=== PATIENT | female | born 1940 | race Caucasian/White ===

== ENCOUNTER 2018-06-21 17:04 | Inpatient (IN) ==
--- NOTE | 2018-06-21 18:25 | Emergency Department Note ---
Disposition Clinical Impression: Right leg pain DVT (deep venous thrombosis) Qualifiers: DVT location: lower extremity Affected thrombotic vein of extremity: iliac Chronicity: acute Laterality: right Qualified Code(s): I82.421 - Acute embolism and thrombosis of right iliac vein Disposition: Admitted As Inpatient General Adult HPI - General Chief complaint: ED Extremity Problem,Nontraumatic Stated complaint: Right leg swelling Time Seen by Provider: 06/21/18 17:18 Source: patient, family Mode of arrival: private vehicle Limitations: no limitations Nursing Notes Reviewed: Yes Vital Signs Reviewed: Yes - History of Present Illness HPI Narrative: Patient is a 78-year-old female with past medical history including 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 The patient states she woke up with righ t lower extremity swelling this morning. She states the swelling goes up into her thigh. She complains of thigh and calf pain. Pain worsens with ambulation. She denies sensory deficits or weakness. She denies fevers or chills, abrasions or ulcerations. She denies history of blood clots in the past. Patient ambulates with a walker. No recent travel, cancer, hormone therapy, recent surgery. Denies blood loss, hematuria, dysuria, hematochezia, melena, chest pain, shortness of breath, lightheadedness. Pain Scale: 8 - Related Data Home Medications Medication Instructions Recorded Confirmed Amlodipine Besylate 10 mg PO DAILY 04/06/17 04/18/18 Aspirin 04/06/17 Atorvastatin [Lipitor] 40 mg PO DAILY 04/06/17 04/18/18 Buspirone HCl [Buspar] 5 mg PO BID 04/06/17 04/18/18 Carbidopa/Levodopa ER 50/200 1 tab PO BID 04/06/17 04/18/18 [Sinemet ER 50-200 Tab] Prevacid 04/06/17 Sertraline [Zoloft] 150 mg PO DAILY 04/06/17 04/18/18 Bethanechol [Urecholine] 25 mg PO BID 04/18/18 04/18/18 Gabapentin [Neurontin] 300 mg PO BID 04/18/18 04/18/18 Previous Rx's Medication Instructions Recorded Bisacodyl [Dulcolax] 5 mg PO DAILY PRN tablet 04/21/18 Docusate [Colace] 100 mg PO BID capsule 04/21/18 Heparin 5,000 unit SQ Q12HCO vial 04/21/18 Sucralfate [Carafate] 1 gm PO QIDAC c 04/21/18 Allergies Allergy/AdvReac Type Severity Reaction Status Date / Time Sulfa (Sulfonamide Allergy Hives Verified 06/21/18 17:07 Antibiotics) All systems ED: reviewed and negative except as stated. Review of Systems: As Per HPI Constitutional: Denies: fever, chills ENT ED: Denies: ear pain, throat pain Cardiovascular: Denies: chest pain, palpitations Respiratory: Denies: cough, dyspnea Gastrointestinal: Denies: abdominal pain, nausea, vomiting, diarrhea, hematoch ezia Genitourinary: Denies: dysuria, hematuria Musculoskeletal: Reports: other (RLE swelling and pain). Denies: back pain Neurological: Denies: headache, weakness Past Medical History - Past Medical History Attestation: Yes The following information was validated with the patient. Source: patient Medical history: Reports: coronary artery disease, CVA, hyperlipidemia, hypertension Surgical history: Reports: no surgical history, cholecystectomy Psychiatric history: Reports: depression - Social History Smoking Status: Never smoker Smokeless Tobacco Status: No Alcohol use: Reports: none Drug use: Reports: none Physical Exam - General Limitations: no limitations General appearance: alert - Head Head exam: atraumatic, normocephalic, normal inspection - Eye Eye exam: Present: normal appearance, EOMI - ENT ENT exam: mucous membranes moist - Neck Neck exam: Present: normal inspection, trachea midline - Chest Chest inspection: Present: normal inspection, symmetric chest wall rise - Respiratory Respiratory exam: Present: normal lung sounds bilaterally. Absent: respiratory distress, wheezes - Cardiovascular Cardiovascular exam: Present: regular rate, normal rhythm, normal heart sounds - Abdominal Exam Abdominal exam: Present: soft, Non-Tender. Absent: distention - Extremities Exam Extremities exam: Present: other (significant RLE swelling from right foot into right thigh. normal capillary refill, bilateral dorsalis pedis pulses and posterior tibialis pulses palpable and equal. Color and temperature normal and equal. Positive right calf tenderness) - Neurological Exam Neurological exam: Present: alert, oriented X3 - Psychiatric Psychiatric exam: Present: normal affect, normal mood - Skin Skin exam: Present: warm, dry, intact, normal color Course Vital Signs Temperature 97.8 F 06/21/18 17:07 Pulse Rate 69 06/21/18 17:07 Respiratory Rate 18 06/21/18 17:07 Blood Pressure 88/61 06/21/18 17:07 O2 Sat by Pulse Oximetry 99 06/21/18 17:07 Temperature 97.8 F 06/21/18 17:28 Pulse Rate 69 06/21/18 17:28 Respiratory Rate 18 06/21/18 17:28 Blood Pressure 102/60 06/21/18 17:28 O2 Sat by Pulse Oximetry 100 06/21/18 17:28 Oxygen Delivery Oxygen Delivery Room Air Medical Decision Making - MDM Narrative Medical decision making narrative: Patient is presenting with significant right lower extremity swelling, calf tenderness. Symptoms started this morning. This is concerning for a DVT. We will obtain CBC, BMP, PT/INR, right lower extremity Doppler ultrasound. 19:30 Ultrasound results are positive for right lower extremity DVT extending into the distal iliac vein. We will obtain troponin, EKG, chest x-ray, BNP to evaluate for any ischemia and right heart strain given the extensive DVT. Patient remains chest pain-free and is oxygenating under percent on room air. She will require admission for evaluation of this new DVT as well as the extent of the DVT. 20:00 Troponin is normal. EKG shows no acute ischemic changes compared to prior ekg. CXR without acute cardiopulmonary process. Vitals stable. Patient denies CP, SOB, oxygenating on room air. Heparin for acute DVT will be started and Hospitalist paged for admission. patient may need further workup for the cause of the DVT as she has no risk factors for dvt. 21:40 Discussed with hospitalist, Dr. Viera, who accepts admission. - Medical Records Medical records reviewed: Yes I reviewed the patient's medical records. - Lab Data Lab results reviewed: Yes I reviewed the patient's lab results. Result diagrams: 06/21/18 18:31 06/21/18 18:31 Lab Results 06/21/18 06/21/18 06/21/18 Range/Units 18:31 18:31 18:31 WBC 10.8 (4.3-11.1) K/mcL RBC 3.62 L (3.82-4.97) M/mcL Hgb 10.5 L (11.5-15.4) g/dL Hct 32.5 L (35.3-44.9) % MCV 89.8 (83.0-100.0) fL MCH 29.0 (28.0-33.3) pg MCHC 32.3 (31.6-35.5) g/dL RDW 13.8 (11.5-14.5) % Plt Count 232 (140-400) K/mcL MPV 9.9 (9.4-12.4) fL Immature Gran % 0.8 (0-4) % Seg Neutrophils % 78.1 % Lymphocytes % 15.3 % Monocytes % 5.4 % Eosinophils % 0.2 % Basophils % 0.2 % Neutrophils # 8.4 (1.6-8.9) K/mcL Lymphocytes # 1.7 (0.6-4.6) K/mcL Monocytes # 0.6 (0.0-1.3) K/mcL Eosinophils # 0.0 (0.0-0.6) K/mcL Basophils # 0.0 (0.0-0.2) K/mcL PT 12.1 (9.4-12.1) Seconds INR 1.1 Heparin Anti-Xa, Unfract (0.30-0.70) IU/mL Sodium 139 (136-145) mEq/L Potassium 3.3 L (3.5-5.1) mEq/L Chloride 102 (98-107) mEq/L Carbon Dioxide 24 (23-29) mEq/L BUN 15 (8-23) mg/dL Creatinine 0.88 (0.60-1.20) mg/dL Est GFR ( Amer) > 60 (> 60) Est GFR (Non-Af Amer) > 60 (> 60) BUN/Creatinine Ratio 17 (6-26) Glucose 115 H (70-105) mg/dL Calculated Osmolality 290 (280-300) Calcium 8.9 (8.6-10.3) mg/dL Troponin I < 0.03 (< 0.04) ng/mL B-Natriuretic Peptide (Less than 100) pg/mL 06/21/18 06/21/18 Range/Units 19:36 20:59 WBC (4.3-11.1) K/mcL RBC (3.82-4.97) M/mcL Hgb (11.5-15.4) g/dL Hct (35.3-44.9) % MCV (83.0-100.0) fL MCH (28.0-33.3) pg MCHC (31.6-35.5) g/dL RDW (11.5-14.5) % Plt Count (140-400) K/mcL MPV (9.4-12.4) fL Immature Gran % (0-4) % Seg Neutrophils % % Lymphocytes % % Monocytes % % Eosinophils % % Basophils % % Neutrophils # (1.6-8.9) K/mcL Lymphocytes # (0.6-4.6) K/mcL Monocytes # (0.0-1.3) K/mcL Eosinophils # (0.0-0.6) K/mcL Basophils # (0.0-0.2) K/mcL PT (9.4-12.1) Seconds INR Heparin Anti-Xa, Unfract 0.00 L (0.30-0.70) IU/mL Sodium (136-145) mEq/L Potassium (3.5-5.1) mEq/L Chloride (98-107) mEq/L Carbon Dioxide (23-29) mEq/L BUN (8-23) mg/dL Creatinine (0.60-1.20) mg/dL Est GFR ( Amer) (> 60) Est GFR (Non-Af Amer) (> 60) BUN/Creatinine Ratio (6-26) Glucose (70-105) mg/dL Calculated Osmolality (280-300) Calcium (8.6-10.3) mg/dL Troponin I (< 0.04) ng/mL B-Natriuretic Peptide 129 H (Less than 100) pg/mL - Radiology Data Radiology results reviewed: Yes I reviewed the patient's radiology results. Chest X-Ray 06/21/18 19:36 IMPRESSION: No acute process. D/ / Eulogio Garner MD / Eulogio Garner MD Interpreting Provider: Eulogio Garner MD - EKG Data EKG #1 EKG attestation: Yes I reviewed and interpreted this EKG. EKG results narrative: EKG obtained at 2022 shows sinus rhythm with heart rate 63. SC interval 56, QRS duration 129. QTc 495. There is atrial premature complexes. There is an IVCD, consider atypical right bundle branch block. Patient has T-wave inversion s in V2, V3, V4, V5, V6, lead 2, lead 3, aVF. Compared to EKG from 04/16/2018 no acute changes Attestation Statement - Attestation Attestation: Resident Attestation: I examined this patient and my medical decision making was reviewed with the Resident Physician. I agree with the documented findings, disposition and treatment plan as described except to the extent set forth below. We independently had [id number] contact with the patient. Patient with no history of blood clots presenting to the emergency department after sudden onset of right leg swelling. Patient is accompanied by her nephew who helps take care of her. Patient's and nephew both state that they have not noticed this progressive over the last several days. Patient's leg is +2 pitting edema throughout the thigh and does have significant swelling. No swelling to the left leg. Patient does have DP pulse equal bilaterally. The patient will undergo further evaluation for possible DVT. Patient has not had any chest pain or shortness of breath.
[2018-06-21 18:41] LABS: Basophils % 0.2 %; Eosinophils % 0.2 %; Hematocrit 32.5 % (35.3-44.9); Hemoglobin 10.5 g/dL (11.5-15.4); Immature Granulocytes % 0.8 % (0-4); Lymphocytes # 1.7 K/mcL (0.6-4.6); Lymphocytes % 15.3 %; Mean Corpuscular HGB Conc 32.3 g/dL (31.6-35.5); Mean Corpuscular Volume 89.8 fL (83.0-100.0); Mean Platelet Volume 9.9 fL (9.4-12.4); Monocytes # 0.6 K/mcL (0.0-1.3); Monocytes % 5.4 %; Neutrophils # 8.4 K/mcL (1.6-8.9); Platelet Count 232 K/mcL (140-400); Red Blood Count 3.62 M/mcL (3.82-4.97); Red Cell Distribution Width 13.8 % (11.5-14.5); Segmented Neutrophils % 78.1 %
[2018-06-21 18:54] LABS: INR 1.1; Prothrombin Time 12.1 Seconds (9.4-12.1)
[2018-06-21 19:00] LABS: BUN/Creatinine Ratio 17 (6-26); Blood Urea Nitrogen 15 mg/dL (8-23); Calcium 8.9 mg/dL (8.6-10.3); Carbon Dioxide 24 mEq/L (23-29); Chloride 102 mEq/L (98-107); Glucose 115 mg/dL (70-105); Osmolality,Calculated 290 (280-300); Potassium 3.3 mEq/L (3.5-5.1); Sodium 139 mEq/L (136-145); eGFR For Non-African Americans > 60 (> 60)
[2018-06-21 20:05] LABS: Troponin I < 0.03 ng/mL (< 0.04)
[2018-06-21] MEDS ORDERED: *HR* Heparin 5,000 UNIT/ML VIAL IVP PRN ×2 (20:37)
[2018-06-21] MEDS ORDERED: *HR* Heparin 5,000 UNIT/ML VIAL IVP ONE (20:37)
[2018-06-21] MEDS ORDERED: Heparin 25,000 UNIT/250 ML D5W 25,000 UNIT/250 ML IV.SOLN IVC SCH (20:45)
[2018-06-22] MEDS ORDERED: Naloxone 0.4 MG/ML INJ IVP PRN (06:24)
--- NOTE | 2018-06-22 06:40 | Internal Med History&Physical ---
Date of Encounter: 06/22/18 Time of Encounter: 06:40 Internal Medicine - H&P: HPI Chief complaint: Right Leg swelling /Pain History of present illness: Ms. Hensley is a 78 year old female with a past medical history of hypertension, depression, stroke with residual dysarthria, and hyperlipidemia who presented to the ED with a chief complaint of right lower extremity pain and swelling which began yesterday morning. Workup in the ED including Ultrasound results were po sitive for right lower extremity DVT extending into the distal iliac vein. Patient has no prior history of blood clots, no recent travel, cancer history, hormone therapy or recent surgery. Patient was started on heparin drip. Otherwise hemodynamically stable, no respiratory complaints. Past Med Surg Social Fam HX - Past Medical History Medical history: coronary artery disease, CVA, hyperlipidemia, hypertension Additional medical history: Parkinson's Disease Psychiatric history: depression - Past Surgical History Surgical History: no surgical history, cholecystectomy Additional surgical history: Laparoscopic - Social History Smoking Status: Never smoker Smokeless Tobacco Status: No Alcohol use: none Drug use: none - Family History Mother Hx Family Cardiac Disorders: Yes Father Hx Family Cardiac Disorders: Yes Internal Medicine - H&P: Meds Amlodipine Besylate 10 mg PO DAILY 04/06/17 [History] Aspirin 04/06/17 [History] Atorvastatin [Lipitor] 40 mg PO DAILY 04/06/17 [History] Carbidopa/Levodopa ER 50/200 [Sinemet ER 50-200 Tab] 1 tab PO BID 04/06/17 [History] Sertraline [Zoloft] 150 mg PO HS 04/06/17 [History] Bethanechol [Urecholine] 25 mg PO BID 04/18/18 [History] Gabapentin [Neurontin] 300 mg PO BID 04/18/18 [History] Heparin 5,000 unit SQ Q12HCO vial 04/21/18 [Rx] Apixaban [Eliquis] 5 mg PO AD #70 tablet 06/22/18 [Rx] Aspirin [Lo-Dose Aspirin EC] 81 mg PO 06/22/18 [History] Sucralfate [Carafate] 1 gm PO DAILY 06/22/18 [History] Allergy/AdvReac Type Severity Reaction Status Date / Time Sulfa (Sulfonamide Allergy Hives Verified 06/21/18 17:07 Antibiotics) All Systems PM: A 10-system review of systems was performed and is negative for pertinent findings except as documented above in the HPI. - Constitutional Constitutional: no chills, no fever(s), no night sweats - EENT Eyes: no change in vision, no discharge, no pain, no photophobia Ears: no ear discharge, no ear pain, no tinnitus Nose, mouth and throat: no dysphagia, no nasal discharge, no neck pain, no sore throat - Cardiovascular Cardiovascular ROS IM: no chest pain, no diaphoresis, no dyspnea, no lightheadedness, no palpitations, no syncope - Respiratory Respiratory: no cough, no dyspnea, no wheezing, no excessive phlegm production - Gastrointestinal Gastrointestinal: no abdominal pain, no diarrhea, no hematemesis, no hematochezia, no melena, no nausea, no vomiting - Genitourinary Genitourinary: no change in urinary stream, no dysuria, no flank pain, no hematuria - Musculoskeletal Musculoskeletal ROS IM: no numbness, no tingling - Integumentary Integumentary IM: no rash, no unusual bruising - Neurological Neurological ROS: no confusion, no convulsions, no focal weakness, no numbness, no tingling, no tremor(s) - Hematologic/Lymphatic Hematologic/Lymphatic: no easy bruising - Constitutional Vitals: Temp Pulse Resp BP Pulse Ox 98.1 F 70 15 111/71 97 06/22/18 03:38 06/22/18 03:38 06/22/18 03:38 06/22/18 03:38 06/22/18 03:38 Exam: General: Alert and oriented 3 lying in bed in no acute distress Skin:Normal color, no rash, no lesions. HEENT:EOM, pupils equal, round and reactive. Cardiovascular:Normal S1 & S2, no rubs, murmurs or gallops. No JVD. Pulse regular. Lungs:Normal breath sounds, no wheezes or crackles. Abdomen:Soft, non-tender, no rigidity. Extremities: Right lower extremity edema, warmth and tender to palpation. 2+ pitting edema. Neurological:Normal cognition and motor skills. Pulses:Carotid and radial pulses normal +2. Rest of the physical exam is non contributory Internal Med - H&P Results - Labs CBC & Chem 7: 06/21/18 18:31 06/22/18 10:10 Labs: Short CBC 06/21/18 Range/Units 18:31 WBC 10.8 (4.3-11.1) K/mcL Hgb 10.5 L (11.5-15.4) g/dL Hct 32.5 L (35.3-44.9) % Plt Count 232 (140-400) K/mcL Neutrophils # 8.4 (1.6-8.9) K/mcL BMP 06/21/18 18:31 Sodium 139 Potassium 3.3 L Chloride 102 Carbon Dioxide 24 BUN 15 Creatinine 0.88 Glucose 115 H Calcium 8.9 Cardiac Enzymes 06/21/18 Range/Units 18:31 Troponin I < 0.03 (< 0.04) ng/mL - Impressions ITS Impressions Chest X-Ray 06/21/18 19:36 IMPRESSION: No acute process. D/ / Eulogio Garner MD / Eulogio Garner MD Interpreting Provider: Eulogio Garner MD - Assessment and Plan (1) DVT (deep venous thrombosis) Current Visit: Yes Status: Acute Assessment and plan: Right lower extremity DVT with Ultrasound of right lower extremity demonstrating DVT extending into the distal iliac vein.. Appears to be unprovoked. Patient currently on heparin drip. Stable from a respiratory and hemodynamic standpoint. Patient does report pain -Continue heparin drip -Pain control -Vascular versus oncology consult Qualifiers: DVT location: lower extremity Affected thrombotic vein of extremity: iliac Chronicity: acute Laterality: right Qualified Code(s): I82.421 - Acute embolism and thrombosis of right iliac vein (2) Right leg pain Current Visit: Yes Status: Acute Assessment and plan: Right leg pain secondary to right lower extremity DVT. See above. (3) Hypokalemia Current Visit: No Status: Resolved Assessment and plan: Mild hypokalemia of 3.3. We will replete. (4) Hypertension Current Visit: Yes Status: Acute Assessment and plan: Continue home antihypertensives Qualifiers: Hypertension type: essential hypertension Qualified Code(s): I10 - Essential (primary) hypertension (5) Parkinsons disease Current Visit: Yes Status: Acute Assessment and plan: Resume patient's home medications - Time Spent With Patient Total time spent is greater than 50% in coordination of care (as documented) at patient's floor/unit and/or counseling patient:
[2018-06-22] MEDS ORDERED: Potassium Chloride Elixir 20 MEQ/15 ML UDC PO ONE (08:05)
[2018-06-22] MEDS: traMADol 50 MG TABLET PO PRN (08:06)
[2018-06-22 10:50] LABS: BUN/Creatinine Ratio 21 (6-26); Blood Urea Nitrogen 16 mg/dL (8-23); Calcium 9.2 mg/dL (8.6-10.3); Carbon Dioxide 25 mEq/L (23-29); Chloride 103 mEq/L (98-107); Glucose 92 mg/dL (70-105); Osmolality,Calculated 289 (280-300); Potassium 3.6 mEq/L (3.5-5.1); Sodium 139 mEq/L (136-145); eGFR For Non-African Americans > 60 (> 60)
[2018-06-22] MEDS ORDERED: *HR* HYDROcodone/Acet 5/325 mg TABLET ONE (13:17)
[2018-06-22] MEDS: *HR* HYDROcodone/Acet 5/325 mg TABLET PO PRN (13:24)
--- NOTE | 2018-06-22 15:34 | Electrocardiograph Report ---
[place] [id number] Test Date: 2018-06-21 Pat Name: Kristan Hensley Department: [id number] Room: [facility] Gender: F Director Independent: : 1940 Requested By: Julissa Lau Order Number: [id number] Reading MD: Delroy Fischer Measurements Intervals [place] Rate: 63 P: 43 IN: 56 QRS: 36 QRSD: 129 T: -36 QT: 483 QTc: 495 Interpretive Statements Sinus rhythm Atrial premature complexes Short IN interval IVCD, consider atypical RBBB Electronically Signed On 06-22-2018 15:32:35 EDT by Delroy Fischer
--- NOTE | 2018-06-22 16:20 | Internal Med Progress Note ---
<Chapin Barbosa - Last Filed: 06/22/18 16:51> Hospitalist Progress Note - Encounter Date of Encounter: 06/22/18 - Exam Vitals: Temp Pulse Resp BP Pulse Ox 98.7 F 71 16 112/71 97 06/22/18 13:15 06/22/18 13:15 06/22/18 13:15 06/22/18 13:15 06/22/18 13:15 - Assessment and Plan (1) DVT (deep venous thrombosis) Current Visit: Yes Status: Acute (2) Hypokalemia Current Visit: No Status: Resolved (3) Right leg pain Current Visit: Yes Status: Acute (4) Hypertension Current Visit: Yes Status: Acute (5) Parkinsons disease Current Visit: Yes Status: Acute - Time Spent with Patient Total time spent is greater than 50% in coordination of care (as documented) at patient's floor/unit and/or counseling patient: Internal Medicine: Result - Labs CBC & Chem 7: 06/21/18 18:31 06/22/18 10:10 Labs: Short CBC 06/21/18 Range/Units 18:31 WBC 10.8 (4.3-11.1) K/mcL Hgb 10.5 L (11.5-15.4) g/dL Hct 32.5 L (35.3-44.9) % Plt Count 232 (140-400) K/mcL Neutrophils # 8.4 (1.6-8.9) K/mcL BMP 06/21/18 06/22/18 18:31 10:10 Sodium 139 139 Potassium 3.3 L 3.6 Chloride 102 103 Carbon Dioxide 24 25 BUN 15 16 Creatinine 0.88 0.78 Glucose 115 H 92 Calcium 8.9 9.2 Cardiac Enzymes 06/21/18 Range/Units 18:31 Troponin I < 0.03 (< 0.04) ng/mL - ABG Interpretation ABG results: PT/INR, D-dimer PT 12.1 Seconds (9.4-12.1) 06/21/18 18:31 - Impressions Impressions Chest X-Ray 06/21/18 19:36 IMPRESSION: No acute process. D/ / Eulogio Garner MD / Eulogio Garner MD Interpreting Provider: Eulogio Garner MD Consult Discharge Plan - Plan Referrals: Alessandro Vines, [Primary Care Provider] - - Attending Attestation I examined this patient and my medical decision-making was reviewed with the Resident Physician on 06/22/18. I agree with the documented findings, disposition and treatment plan as described except to the extent set forth below. Ms Hensley is currently admitted for acute DVT of leg. She is having significant pain. She remains moderate to high risk due to potential for worsening clinical status. Ms Hensley is resting in bed. She has been having a lot of pain. No fever or chills. No CP or SOB. Says she does get up and walk around. Exam Alert Comfortable at this time Mucus membranes dry Heart reg No wheeze Edema noted Abd soft I/P 1. Acute DVT - on heparin. Transition to Eliquis 2. Prior CVA Further diagnoses and plan as above <Lesvia Francis - Last Filed: 06/22/18 18:45> Hospitalist Progress Note - Encounter Date of Encounter: 06/22/18 Time of Encounter: 09:00 - Subjective Interval History: Ms. Hensley is a 78-year-old female who presented with right leg pain and swelling that began 2 days ago. Ultrasound of the ER showed right lower extremity DVT extending into the distal iliac vein. Echocardiogram on admission showed sinus rhythm with atrial premature complexes, a short OK interval, IVCD possibly right bundle branch block Patient has a history of hypertension, depression, stroke with residual dysarthria, and hyperlipidemia On exam patient patient states that she is still having leg pain that starts in her groin and radiates down to her ankle. She says this is little less painful than yesterday. Patient denies any chest pain or shortness of breath, troubles with urine or bowel habits. - Exam Vitals: Temp Pulse Resp BP Pulse Ox 98.7 F 71 16 112/71 97 06/22/18 13:15 06/22/18 13:15 06/22/18 13:15 06/22/18 13:15 06/22/18 13:15 Exam: General: Awake alert and oriented 3, answers questions appropriately, mild distress Head: normocephalic, atraumatic Eyes: KINGSLEY, no icterus Cardio: RRR, no mumurs, rubs, or gallops Respiratory: CTAB, no wheezing, rhonchi, rales Abd: normal bowel sounds, no gaurding or rigidity Extremties: Warm, and swelling of the right lower extremity. Pitting edema 2+ to mid calf, swelling of upper leg and groin region with tenderness to palpation. Skin: warm, dry, intact - Assessment and Plan (1) DVT (deep venous thrombosis) Current Visit: Yes Status: Acute Assessment and Plan: Provoked DVT to surgery one month ago, and ambulation has been decreased over that month. Ultrasound showed right lower extremity DVT extending to the distal iliac vein Patient will continue heparin drip and then move to [facility] Continue pain management as needed Follow-up with vascular (2) Right leg pain Current Visit: Yes Status: Acute Assessment and Plan: Caused by DVT of right lower extremity Pain management (3) Hypertension Current Visit: Yes Status: Acute Assessment and Plan: Controlled with home medication Currently the running at 112/71 without medication We will hold medication for now (4) Parkinsons disease Current Visit: No Status: Chronic Assessment and Plan: We will restart carbidopa levodopa (5) DVT prophylaxis Current Visit: No Status: Acute Assessment and Plan: Early on heparin drip DVT Prophylaxis: Heparin drip - Time Spent with Patient Total time spent is greater than 50% in coordination of care (as documented) at patient's floor/unit and/or counseling patient: Internal Medicine: Result - Labs CBC & Chem 7: 06/21/18 18:31 06/22/18 10:10 Labs: Short CBC 06/21/18 Range/Units 18:31 WBC 10.8 (4.3-11.1) K/mcL Hgb 10.5 L (11.5-15.4) g/dL Hct 32.5 L (35.3-44.9) % Plt Count 232 (140-400) K/mcL Neutrophils # 8.4 (1.6-8.9) K/mcL BMP 06/21/18 06/22/18 18:31 10:10 Sodium 139 139 Potassium 3.3 L 3.6 Chloride 102 103 Carbon Dioxide 24 25 BUN 15 16 Creatinine 0.88 0.78 Glucose 115 H 92 Calcium 8.9 9.2 Cardiac Enzymes 06/21/18 Range/Units 18:31 Troponin I < 0.03 (< 0.04) ng/mL - ABG Interpretation ABG results: PT/INR, D-dimer PT 12.1 Seconds (9.4-12.1) 06/21/18 18:31 - Impressions Impressions Chest X-Ray 06/21/18 19:36 IMPRESSION: No acute process. D/ / Eulogio Garner MD / Eulogio Garner MD Interpreting Provider: Eulogio Garner MD <Chapin Barbosa A - Last Filed: 06/22/18 16:51> (1) DVT (deep venous thrombosis) Qualifiers: DVT location: lower extremity Affected thrombotic vein of extremity: iliac Chronicity: acute Laterality: right Qualified Code(s): I82.421 - Acute embolism and thrombosis of right iliac vein <Lesvia Francis E - Last Filed: 06/22/18 18:45> (1) DVT (deep venous thrombosis) Qualifiers: DVT location: lower extremity Affected thrombotic vein of extremity: iliac Chronicity: acute Laterality: right Qualified Code(s): I82.421 - Acute embolism and thrombosis of right iliac vein
[2018-06-22] MEDS: Carbidopa/Levodopa ER 50/200 TABLET PO SCH (22:35)
[2018-06-23 00:47] LABS: Basophils % 0.3 %; Eosinophils # 0.1 K/mcL (0.0-0.6); Eosinophils % 1.3 %; Hematocrit 29.7 % (35.3-44.9); Hemoglobin 9.6 g/dL (11.5-15.4); Immature Granulocytes % 0.7 % (0-4); Lymphocytes # 2.1 K/mcL (0.6-4.6); Lymphocytes % 24.1 %; Mean Corpuscular HGB Conc 32.3 g/dL (31.6-35.5); Mean Corpuscular Volume 89.7 fL (83.0-100.0); Mean Platelet Volume 10.2 fL (9.4-12.4); Monocytes # 0.6 K/mcL (0.0-1.3); Monocytes % 6.6 %; Neutrophils # 5.8 K/mcL (1.6-8.9); Platelet Count 218 K/mcL (140-400); Red Blood Count 3.31 M/mcL (3.82-4.97); Red Cell Distribution Width 13.8 % (11.5-14.5)
[2018-06-23 00:50] LABS: Prothrombin Time 11.3 Seconds (9.4-12.1)
[2018-06-23 01:04] LABS: Alanine Aminotransferase < 3 Units/L (7-52); Albumin 3.1 g/dL (3.5-5.7); Albumin/Globulin Ratio 1.3 (1.1-2.2); Alkaline Phosphatase 97 Units/L (34-104); Aspartate Amino Transferase 17 Units/L (13-39); BUN/Creatinine Ratio 24 (6-26); Bilirubin,Total 0.6 mg/dL (0.3-1.0); Blood Urea Nitrogen 14 mg/dL (8-23); Calcium 8.8 mg/dL (8.6-10.3); Carbon Dioxide 25 mEq/L (23-29); Chloride 104 mEq/L (98-107); Globulin 2.4 g/dL (2.4-3.5); Glucose 90 mg/dL (70-105); Osmolality,Calculated 286 (280-300); Potassium 3.3 mEq/L (3.5-5.1); Sodium 138 mEq/L (136-145); Total Protein 5.5 g/dL (6.4-8.9); eGFR For Non-African Americans > 60 (> 60)
[2018-06-23] MEDS: Carbidopa/Levodopa ER 50/200 TABLET PO SCH ×2 (08:29→21:08)
[2018-06-23] MEDS: *HR* HYDROcodone/Acet 5/325 mg TABLET PO PRN ×3 (08:29→21:08)
[2018-06-23] MEDS: *HR* Rivaroxaban 15 MG TABLET PO SCH ×2 (10:19→21:08)
--- NOTE | 2018-06-23 15:28 | Internal Med Progress Note ---
<Lesvia Francis E - Last Filed: 06/23/18 15:26> Hospitalist Progress Note - Encounter Date of Encounter: 06/23/18 Time of Encounter: 09:45 - Subjective Interval History: Ms. Hensley is a 78-year-old female who presented with right leg pain and swelling that began 3 days ago. Ultrasound of the ER showed right lower extremity DVT extending into the distal iliac vein Echocardiogram on admission showed sinus rhythm with a atrial premature complexes, a short [place] interval, IVCD possibly right bundle branch block Patient has a history of hypertension, depression, stroke with residual dysarthria, and hyperlipidemia On exam patient states that she is still having pain although it is better than . She denies any chest pain, shortness of breath, trouble with urination or her bowels Physical therapy would like her to be placed in SNF for rehabilitation - Exam Vitals: Temp Pulse Resp BP Pulse Ox 98.5 F 67 14 106/69 92 06/23/18 10:30 06/23/18 10:30 06/23/18 10:30 06/23/18 10:30 06/23/18 07:15 Exam: General: Awake alert and oriented, no distress, answers questions appropriately Head: normocephalic, atraumatic Eyes: K[place]LEY, no icterus Cardio: RRR, no mumurs, rubs, or gallops Respiratory: CTAB, no wheezing, rhonchi, rales Abd: normal bowel sounds, no gaurding or rigidity Extremties: Edema noted on the left lower leg 3+, tenderness to palpation on the thigh left leg Skin: warm, dry, intact - Assessment and Plan (1) DVT (deep venous thrombosis) Current Visit: Yes Status: Acute Assessment and Plan: Provoked DVT due to surgery one month ago, he ablation is been decreased over that month Ultrasound showed right lower extremity DVT extending to the distal iliac vein Patient was noted to several toe Continue pain management as needed Follow-up with vascular Patient will be placed for rehabilitation SNF (2) Right leg pain Current Visit: Yes Status: Acute Assessment and Plan: Secondary to DVT of the right lower extremity Pain management (3) Hypertension Current Visit: Yes Status: Acute Assessment and Plan: Pressures have been steady without medication Were holding home medications as of now (4) Parkinsons disease Current Visit: No Status: Chronic Assessment and Plan: Restarted carbidopa levodopa yesterday Continue home medication (5) DVT prophylaxis Current Visit: No Status: Acute Assessment and Plan: Patient is currently on Xerelto DVT Prophylaxis: Xerelto - Time Spent with Patient Total time spent is greater than 50% in coordination of care (as documented) at patient's floor/unit and/or counseling patient: Internal Medicine: Result - Labs CBC & Chem 7: 06/23/18 00:27 06/23/18 00:27 Labs: Short CBC 06/23/18 Range/Units 00:27 WBC 8.7 (4.3-11.1) K/mcL Hgb 9.6 L (11.5-15.4) g/dL Hct 29.7 L (35.3-44.9) % Plt Count 218 (140-400) K/mcL Neutrophils # 5.8 (1.6-8.9) K/mcL BMP 06/23/18 00:27 Sodium 138 Potassium 3.3 L Chloride 104 Carbon Dioxide 25 BUN 14 Creatinine 0.59 L Glucose 90 Calcium 8.8 Liver Function 06/23/18 Range/Units 00:27 Total Bilirubin 0.6 (0.3-1.0) mg/dL AST 17 (13-39) Units/L ALT < 3 L (7-52) Units/L Alkaline Phosphatase 97 (34-104) Units/L Albumin 3.1 L (3.5-5.7) g/dL - ABG Interpretation ABG results: PT/INR, D-dimer PT 11.3 Seconds (9.4-12.1) 06/23/18 00:27 Consult Discharge Plan - Plan Referrals: Alessandro Vines DO [Primary Care Provider] - <Chapin Barbosa - Last Filed: 06/23/18 19:26> Hospitalist Progress Note - Encounter Date of Encounter: 06/23/18 - Exam Vitals: Temp Pulse Resp BP Pulse Ox 99.2 F 71 14 105/70 98 06/23/18 15:37 06/23/18 15:37 06/23/18 15:37 06/23/18 15:37 06/23/18 15:37 - Assessment and Plan (1) Hypokalemia Current Visit: No Status: Resolved (2) DVT (deep venous thrombosis) Current Visit: Yes Status: Acute (3) Right leg pain Current Visit: Yes Status: Acute (4) Hypertension Current Visit: Yes Status: Acute (5) Parkinsons disease Current Visit: Yes Status: Acute - Time Spent with Patient Total time spent is greater than 50% in coordination of care (as documented) at patient's floor/unit and/or counseling patient: Internal Medicine: Result - Labs CBC & Chem 7: 06/23/18 00:27 06/23/18 00:27 Labs: Short CBC 06/23/18 Range/Units 00:27 WBC 8.7 (4.3-11.1) K/mcL Hgb 9.6 L (11.5-15.4) g/dL Hct 29.7 L (35.3-44.9) % Plt Count 218 (140-400) K/mcL Neutrophils # 5.8 (1.6-8.9) K/mcL BMP 06/23/18 00:27 Sodium 138 Potassium 3.3 L Chloride 104 Carbon Dioxide 25 BUN 14 Creatinine 0.59 L Glucose 90 Calcium 8.8 Liver Function 06/23/18 Range/Units 00:27 Total Bilirubin 0.6 (0.3-1.0) mg/dL AST 17 (13-39) Units/L ALT < 3 L (7-52) Units/L Alkaline Phosphatase 97 (34-104) Units/L Albumin 3.1 L (3.5-5.7) g/dL - ABG Interpretation ABG results: PT/INR, D-dimer PT 11.3 Seconds (9.4-12.1) 06/23/18 00:27 - Attending Attestation I examined this patient and my medical decision-making was reviewed with the Resident Physician on 06/23/18. I agree with the documented findings, disposition and treatment plan as described except to the extent set forth below. Ms Hensley is currently admitted for acute DVT. She remains moderate to high risk due to potential for worsening clinical status. Ms Hensley is feeling OK. No fever or chills. Switched to PO meds. Awaiting PT/OT evals. Exam alert Comfortable Mucus membranes dry Heart reg No wheeze abd soft No edema I/P 1. DVT Further diagnoses and plan as above. <JakyLesvia keane E - Last Filed: 06/23/18 15:26> (1) DVT (deep venous thrombosis) Qualifiers: DVT location: lower extremity Affected thrombotic vein of extremity: iliac Chronicity: acute Laterality: right Qualified Code(s): I82.421 - Acute embolism and thrombosis of right iliac vein (3) Hypertension Qualifiers: Hypertension type: essential hypertension Qualified Code(s): I10 - Essential (primary) hypertension <Chapin Barbosa A - Last Filed: 06/23/18 19:26> (2) DVT (deep venous thrombosis) Qualifiers: DVT location: lower extremity Affected thrombotic vein of extremity: iliac Chronicity: acute Laterality: right Qualified Code(s): I82.421 - Acute embolism and thrombosis of right iliac vein (4) Hypertension Qualifiers: Hypertension type: essential hypertension Qualified Code(s): I10 - Essential (primary) hypertension
[2018-06-24 00:41] LABS: Basophils % 0.4 %; Eosinophils # 0.1 K/mcL (0.0-0.6); Eosinophils % 0.9 %; Hemoglobin 9.4 g/dL (11.5-15.4); Immature Granulocytes % 0.6 % (0-4); Lymphocytes # 2.2 K/mcL (0.6-4.6); Lymphocytes % 28.4 %; Mean Corpuscular HGB Conc 32.4 g/dL (31.6-35.5); Mean Corpuscular Hemoglobin 28.9 pg (28.0-33.3); Mean Corpuscular Volume 89.2 fL (83.0-100.0); Mean Platelet Volume 10.1 fL (9.4-12.4); Monocytes # 0.5 K/mcL (0.0-1.3); Monocytes % 6.5 %; Platelet Count 214 K/mcL (140-400); Red Blood Count 3.25 M/mcL (3.82-4.97); Red Cell Distribution Width 14.1 % (11.5-14.5); Segmented Neutrophils % 63.2 %
[2018-06-24 00:52] LABS: Prothrombin Time 22.5 Seconds (9.4-12.1)
[2018-06-24 00:56] LABS: BUN/Creatinine Ratio 29 (6-26); Blood Urea Nitrogen 14 mg/dL (8-23); Calcium 8.9 mg/dL (8.6-10.3); Carbon Dioxide 28 mEq/L (23-29); Chloride 104 mEq/L (98-107); Glucose 99 mg/dL (70-105); Osmolality,Calculated 285 (280-300); Potassium 4.1 mEq/L (3.5-5.1); Sodium 137 mEq/L (136-145); eGFR For Non-African Americans > 60 (> 60)
[2018-06-24] MEDS: *HR* Rivaroxaban 15 MG TABLET PO SCH ×2 (08:39→20:40)
[2018-06-24] MEDS: Carbidopa/Levodopa ER 50/200 TABLET PO SCH ×2 (08:39→20:40)
[2018-06-24] MEDS: *HR* HYDROcodone/Acet 5/325 mg TABLET PO PRN ×2 (08:46→16:40)
--- NOTE | 2018-06-24 14:22 | Internal Med Progress Note ---
<Maira Tavarez - Last Filed: 06/24/18 16:49> Hospitalist Progress Note - Encounter Date of Encounter: 06/24/18 Time of Encounter: 13:55 - Subjective Interval History: Patient seen and examined that bedside. She is alert and oriented. She denies any complaints. She stated that her right lower extremity pain has improved. She denies fever, chills, chest pain, shortness of breath, abdominal pain, diarrhea, dysuria. - Exam Vitals: Temp Pulse Resp BP Pulse Ox 98.3 F 70 16 101/68 97 06/24/18 11:28 06/24/18 11:28 06/24/18 11:28 06/24/18 11:28 06/24/18 11:28 Exam: Gen.: Vitals noted. No acute distress. AAOx3 HEENT: oropharynx clear, Normocephalic, atraumatic Neck: Supple. No adenopathy. Cardiac: RRR, no murmur, +S1/S2 Pulmonary: CTA bilaterally, no wheezes, rales or rhonchi, equal chest expansion Abdomen: soft, nontender, Bowel sounds noted, no guarding MSK: right knee joint swelling Extremities: right lower extremity diffuse edema, no cyanosis or clubbing Neuro: A&Ox3, moves all extremities Psych: Appropriate mood and behavior - Assessment and Plan (1) DVT (deep venous thrombosis) Current Visit: Yes Status: Acute Assessment and Plan: DVT of right lower extremity. -This is likely a provoked DVT secondary to having surgery one month ago for which the patient stated she was in bed most days and have little ambulation -venous Doppler ultrasound showed an acute deep venous thrombosis in the right distal iliac, saphenofemoral junction, common femoral, superficial femoral and popliteal veins. -Right lower extremity is diffusely swollen, however pulses are palpable and there are no signs of compartment syndrome. Plan: -patient started on xarelto -PT/OT ordered for therapy -patient accepted to SNF for rehab -continue pain management (2) Right leg pain Current Visit: Yes Status: Acute Assessment and Plan: Secondary to DVT of right lower extremity. Patient reports pain is improved. -Continue with pain management (3) Hypokalemia Current Visit: No Status: Resolved Assessment and Plan: Resolved. Will continue to monitor (4) Hypertension Current Visit: Yes Status: Acute Assessment and Plan: History of hypertension taking amlodipine -blood pressure has been normal without medication -will continue to monitor (5) Parkinsons disease Current Visit: Yes Status: Acute Assessment and Plan: Continuing home carbidopa levodopa - Time Spent with Patient Total time spent is greater than 50% in coordination of care (as documented) at patient's floor/unit and/or counseling patient: Internal Medicine: Result - Labs CBC & Chem 7: 06/24/18 00:26 06/24/18 00:26 Labs: Short CBC 06/24/18 Range/Units 00:26 WBC 7.8 (4.3-11.1) K/mcL Hgb 9.4 L (11.5-15.4) g/dL Hct 29.0 L (35.3-44.9) % Plt Count 214 (140-400) K/mcL Neutrophils # 5.0 (1.6-8.9) K/mcL BMP 06/24/18 00:26 Sodium 137 Potassium 4.1 Chloride 104 Carbon Dioxide 28 BUN 14 Creatinine 0.48 L Glucose 99 Calcium 8.9 - ABG Interpretation ABG results: PT/INR, D-dimer PT 22.5 Seconds (9.4-12.1) H D 06/24/18 00:26 Consult Discharge Plan - Plan Referrals: Alessandro Vines DO [Primary Care Provider] - <Chapin Barbosa - Last Filed: 06/24/18 17:28> Hospitalist Progress Note - Encounter Date of Encounter: 06/24/18 - Exam Vitals: Temp Pulse Resp BP Pulse Ox 98.4 F 84 16 119/66 95 06/24/18 16:48 06/24/18 16:48 06/24/18 16:48 06/24/18 16:48 06/24/18 16:48 - Assessment and Plan (1) Hypokalemia Current Visit: No Status: Resolved (2) DVT (deep venous thrombosis) Current Visit: Yes Status: Acute (3) Right leg pain Current Visit: Yes Status: Acute (4) Hypertension Current Visit: Yes Status: Acute (5) Parkinsons disease Current Visit: Yes Status: Acute - Time Spent with Patient Total time spent is greater than 50% in coordination of care (as documented) at patient's floor/unit and/or counseling patient: Internal Medicine: Result - Labs CBC & Chem 7: 06/24/18 00:26 06/24/18 00:26 Labs: Short CBC 06/24/18 Range/Units 00:26 WBC 7.8 (4.3-11.1) K/mcL Hgb 9.4 L (11.5-15.4) g/dL Hct 29.0 L (35.3-44.9) % Plt Count 214 (140-400) K/mcL Neutrophils # 5.0 (1.6-8.9) K/mcL BMP 06/24/18 00:26 Sodium 137 Potassium 4.1 Chloride 104 Carbon Dioxide 28 BUN 14 Creatinine 0.48 L Glucose 99 Calcium 8.9 - ABG Interpretation ABG results: PT/INR, D-dimer PT 22.5 Seconds (9.4-12.1) H D 06/24/18 00:26 - Attending Attestation I examined this patient and my medical decision-making was reviewed with the Resident Physician on 06/24/18. I agree with the documented findings, disposition and treatment plan as described except to the extent set forth below. Ms Henslye is currently admitted for acute DVT. She remains moderate to high risk due to potential for worsening clinical status. Ms Hensley is feeling OK. No fever or chills. Pain is OK with pain med. Appetite OK. Exam alert Comfortable Mucus membranes moist Heart reg No wheeze abd soft and nontender No edema I/P 1. DVT - continue Xarelto 2. Hx CVA Further diagnoses and plan as above. Awaiting placement to SNF. <Maira Tavarez - Last Filed: 06/24/18 16:49> (1) DVT (deep venous thrombosis) Qualifiers: DVT location: lower extremity Affected thrombotic vein of extremity: iliac Chronicity: acute Laterality: right Qualified Code(s): I82.421 - Acute embo lism and thrombosis of right iliac vein (4) Hypertension Qualifiers: Hypertension type: essential hypertension Qualified Code(s): I10 - Essential (primary) hypertension <Chapin Barbosa - Last Filed: 06/24/18 17:28> (2) DVT (deep venous thrombosis) Qualifiers: DVT location: lower extremity Affected thrombotic vein of extremity: iliac Chronicity: acute Laterality: right Qualified Code(s): I82.421 - Acute embolism and thrombosis of right iliac vein (4) Hypertension Qualifiers: Hypertension type: essential hypertension Qualified Code(s): I10 - Essential (primary) hypertension
[2018-06-25] MEDS: *HR* HYDROcodone/Acet 5/325 mg TABLET PO PRN ×2 (05:47→12:53)
[2018-06-25 07:32] LABS: Basophils % 0.4 %; Eosinophils # 0.1 K/mcL (0.0-0.6); Eosinophils % 1.2 %; Hematocrit 31.3 % (35.3-44.9); Immature Granulocytes % 0.7 % (0-4); Lymphocytes # 1.6 K/mcL (0.6-4.6); Lymphocytes % 22.6 %; Mean Corpuscular HGB Conc 31.9 g/dL (31.6-35.5); Mean Corpuscular Volume 90.7 fL (83.0-100.0); Mean Platelet Volume 10.4 fL (9.4-12.4); Monocytes # 0.5 K/mcL (0.0-1.3); Monocytes % 6.4 %; Platelet Count 245 K/mcL (140-400); Red Blood Count 3.45 M/mcL (3.82-4.97); Segmented Neutrophils % 68.7 %
[2018-06-25 07:46] LABS: INR 1.6; Prothrombin Time 18.3 Seconds (9.4-12.1)
[2018-06-25 07:51] LABS: BUN/Creatinine Ratio 28 (6-26); Blood Urea Nitrogen 12 mg/dL (8-23); Calcium 9.2 mg/dL (8.6-10.3); Carbon Dioxide 26 mEq/L (23-29); Chloride 103 mEq/L (98-107); Glucose 79 mg/dL (70-105); Osmolality,Calculated 281 (280-300); Potassium 4.3 mEq/L (3.5-5.1); Sodium 136 mEq/L (136-145); eGFR For Non-African Americans > 60 (> 60)
--- NOTE | 2018-06-25 08:12 | Internal Med Progress Note ---
Hospitalist Progress Note - Encounter Date of Encounter: 06/25/18 Time of Encounter: 11:00 - Subjective Interval History: Ms Hensley is currently admitted for acute DVT. She remains moderate to high risk due to potential for worsening clinical status. Ms Hensley has been having some tachycardia when standing up. Resolves when sitting. Still has some neck pain and sore throat. Says it hurts to swallow. No fever or chills. - Exam Vitals: Temp Pulse Resp BP Pulse Ox 97.5 F L 74 16 113/73 98 06/25/18 07:01 06/25/18 07:01 06/25/18 07:01 06/25/18 07:01 06/25/18 07:01 Exam: General: Alert and oriented. Comfortable at this time. Skin: Normal color, no rash, no lesions. H: Normocephalic. EENT: EOMI, Mucus membranes moist. Thrush noted on tongue. Cardiovascular: Normal S1 & S2, Not tachy at this time (resting in bed). Lungs: Normal breath sounds, no wheezes or crackles. Abdomen: Soft, non-tender, no rigidity. Normal bowel sounds. Extremities: No deformity, Still with some pain in thigh. Neurological: Normal cognition and motor skills. Dysarthria present. Pulses: radial pulses normal +2. Neck: Tender to palpation on R side neck muscles. Rest of the physical exam is non contributory - Assessment and Plan (1) Neck pain on right side Current Visit: Yes Status: Acute Assessment and Plan: Appears to be related to muscles. One dose of Norflex given. (2) Thrush of mouth and esophagus Current Visit: Yes Status: Suspected Assessment and Plan: Pt has pain in throat and down into chest Thrush noted on tongue. Started on Diflucan and Nystatin. (3) DVT (deep venous thrombosis) Current Visit: Yes Status: Acute Assessment and Plan: DVT of right lower extremity. -This is likely a provoked DVT secondary to having surgery one month ago for which the patient stated she was in bed most days and have little ambulation -venous Doppler ultrasound showed an acute deep venous thrombosis in the right distal iliac, saphenofemoral junction, common femoral, superficial femoral and popliteal veins. -Right lower extremity is diffusely swollen, however pulses are palpable and there are no signs of compartment syndrome. Plan: -Currently tolerating Xarelto. Working on discharge to Rehab. (4) Right leg pain Current Visit: Yes Status: Acute Assessment and Plan: Secondary to DVT of right lower extremity. Patient reports pain is improved. -Continue with pain management (5) Hypertension Current Visit: Yes Status: Acute Assessment and Plan: History of hypertension taking amlodipine -blood pressure has been normal without medication -will continue to monitor (6) Parkinsons disease Current Visit: Yes Status: Chronic Assessment and Plan: Continuing home carbidopa levodopa - Time Spent with Patient Total time spent is greater than 50% in coordination of care (as documented) at patient's floor/unit and/or counseling patient: Internal Medicine: Result - Labs CBC & Chem 7: 06/25/18 06:37 06/25/18 06:37 Labs: Short CBC 06/25/18 Range/Units 06:37 WBC 7.2 (4.3-11.1) K/mcL Hgb 10.0 L (11.5-15.4) g/dL Hct 31.3 L (35.3-44.9) % Plt Count 245 (140-400) K/mcL Neutrophils # 5.0 (1.6-8.9) K/mcL BMP 06/25/18 06:37 Sodium 136 Potassium 4.3 Chloride 103 Carbon Dioxide 26 BUN 12 Creatinine 0.43 L Glucose 79 Calcium 9.2 - ABG Interpretation ABG results: PT/INR, D-dimer PT 22.5 Seconds (9.4-12.1) H D 06/24/18 00:26 Consult Discharge Plan - Plan Referrals: Alessandro Vines DO [Primary Care Provider] - (3) DVT (deep venous thrombosis) Qualifiers: DVT location: lower extremity Affected thrombotic vein of extremity: iliac Chronicity: acute Laterality: right Qualified Code(s): I82.421 - Acute embolism and thrombosis of right iliac vein (5) Hypertension Qualifiers: Hypertension type: essential hypertension Qualified Code(s): I10 - Essential (primary) hypertension
[2018-06-25] MEDS: Carbidopa/Levodopa ER 50/200 TABLET PO SCH ×2 (09:06→20:11)
[2018-06-25] MEDS: *HR* Rivaroxaban 15 MG TABLET PO SCH ×2 (09:06→20:11)
[2018-06-25] MEDS: traMADol 50 MG TABLET PO PRN (09:07)
[2018-06-25] MEDS: Ringers Solution, Lactated 1,000 ML IVC SCH (12:47)
[2018-06-25] MEDS ORDERED: Orphenadrine 100 MG TABLET.ER PO ONE (14:42)
[2018-06-25] MEDS: Nystatin SUSP 5 ML UD.LIQ PO SCH ×2 (15:08→20:09)
[2018-06-25] MEDS: Fluconazole 100 MG TABLET PO SCH (15:08)
[2018-06-25] MEDS ORDERED: Nystatin SUSP 5 ML UD.LIQ PO SCH (17:00)
[2018-06-25] MEDS: Gabapentin 300 MG CAPSULE PO SCH (20:11)
[2018-06-26] MEDS: Nystatin SUSP 5 ML UD.LIQ PO SCH ×4 (08:37→22:18)
[2018-06-26] MEDS: Carbidopa/Levodopa ER 50/200 TABLET PO SCH ×2 (08:37→22:19)
[2018-06-26] MEDS: Fluconazole 100 MG TABLET PO SCH (08:37)
[2018-06-26] MEDS: Gabapentin 300 MG CAPSULE PO SCH ×2 (08:38→22:19)
[2018-06-26] MEDS: amLODIPine 5 MG TABLET PO SCH (08:38)
[2018-06-26] MEDS: *HR* Rivaroxaban 15 MG TABLET PO SCH ×2 (08:38→22:19)
[2018-06-26] MEDS: Aspirin 81 MG TAB.CHEW PO SCH (08:38)
[2018-06-26] MEDS: *HR* HYDROcodone/Acet 5/325 mg TABLET PO PRN ×2 (09:00→18:33)
--- NOTE | 2018-06-26 10:38 | Discharge Summary ---
<Maira Tavarez - Last Filed: 06/26/18 14:04> - NOTES TO OUTPATIENT PROVIDER Notes to Outpatient Provider: Admitted for right lower extremity DVT that was provoked by recent surgery of cholecystectomy. Patient started on anticoagulation with Xarelto. Discharge planning to [facility] for rehab with PT/OT. Soft tissue neck CT showed 1.7 cm nodule within the left lobe of the thyroid gland with recommendations of follow-up ultrasound. Orders not resulted at time of discharge: Pending orders 06/25/18 10:27 EKG [ECG 12 lead ECG] [ECG] Stat Date of Encounter: 06/26/18 Time of Encounter: 09:00 - Discharge Diagnosis (1) DVT (deep venous thrombosis) Priority: Primary Status: Acute Qualifiers: DVT location: lower extremity Affected thrombotic vein of extremity: iliac Chronicity: acute Laterality: right Qualified Code(s): I82.421 - Acute embolism and thrombosis of right iliac vein (2) Right leg pain Priority: Secondary Status: Acute (3) Hypertension Priority: Secondary Status: Acute Qualifiers: Hypertension type: essential hypertension Qualified Code(s): I10 - Essential (primary) hypertension (4) Parkinsons disease Priority: Secondary Status: Chronic (5) Neck pain on right side Priority: Secondary Status: Acute (6) Thrush of mouth and esophagus Priority: Secondary Status: Suspected Hospital course: Ms. Hensley is a 78 year old female with a past medical history of hypertension, depression, stroke with residual dysarthria, Parkinson's, and hyperlipidemia who presented to the ED with a chief complaint of right lower extremity pain and swelling which began the day before she came to the ED. She woke up with the right lower extremity diffuse swelling and pain. Patient reported that a month prior she had a cholecystectomy after which she has had little ambulation and primarily laid in bed. Patient has no prior history of blood clots, no recent travel, cancer history, hormone therapy. Venous Doppler ultrasound showed an acute deep venous thrombosis in the right distal iliac, saphenofemoral junction, common femoral, superficial femoral and popliteal veins. She was started on a heparin drip then transitioned to Xarelto. During admission she started having right-sided neck pain that was tender to palpation and worsened with turning neck. This was likely musculoskeletal and a muscle relaxer helped. Soft tissue neck CT showed no lymphadenopathy or findings to explain right-sided neck pain. However a 1.7 cm nodule within the left lobe of the thyroid gland was found with recommendations of follow-up ultrasound. She was also noted to have positive ortho stats for which she was given IV fluids that improved the orthostatic tachycardia. PT/OT recommended the patient to go to rehab. Upon discharge the patient reported that the right lower extremity pain had improved. She is to follow-up with her family physician on the thyroid nodule. She is to continue taking Xarelto. She was discharged to [facility]. Discharge discussed with: patient, nurse, social work - Time Spent with Patient Total time spent providing and/or coordinating discharge services: Time spent: Greater than 30 minutes - Discharge Medications Prescriptions: New Rivaroxaban [Xarelto] 15 mg PO BID #60 tablet Continue Carbidopa/Levodopa ER 50/200 [Sinemet ER 50-200 Tab] 1 tab PO BID Sertraline [Zoloft] 150 mg PO DAILY Atorvastatin [Lipitor] 40 mg PO HS Amlodipine Besylate 10 mg PO DAILY Bethanechol [Urecholine] 25 mg PO BID Gabapentin [Neurontin] 300 mg PO BID Heparin 5,000 unit SQ Q12HCO vial Sucralfate [Carafate] 1 gm PO DAILY Aspirin 81 mg PO DAILY Bisacodyl [Dulcolax] 5 mg PO DAILY PRN PRN Reason: Constipation Buspirone HCl [Buspar] 5 mg PO BID Docusate Sodium [Dok] 100 mg PO BID PRN PRN Reason: Constipation Lansoprazole [Prevacid] 30 mg PO DAILY Home Medications: Amlodipine Besylate 10 mg PO DAILY 04/06/17 [History] Atorvastatin [Lipitor] 40 mg PO HS 04/06/17 [History] Carbidopa/Levodopa ER 50/200 [Sinemet ER 50-200 Tab] 1 tab PO BID 04/06/17 [History] Sertraline [Zoloft] 150 mg PO DAILY 04/06/17 [History] Bethanechol [Urecholine] 25 mg PO BID 04/18/18 [History] Gabapentin [Neurontin] 300 mg PO BID 04/18/18 [History] Heparin 5,000 unit SQ Q12HCO vial 04/21/18 [Rx] Sucralfate [Carafate] 1 gm PO DAILY 06/22/18 [History] Aspirin 81 mg PO DAILY 06/24/18 [History] Bisacodyl [Dulcolax] 5 mg PO DAILY PRN 06/24/18 [History] Buspirone HCl [Buspar] 5 mg PO BID 06/24/18 [History] Docusate Sodium [Dok] 100 mg PO BID PRN 06/24/18 [History] Lansoprazole [Prevacid] 30 mg PO DAILY 06/24/18 [History] Rivaroxaban [Xarelto] 15 mg PO BID #60 tablet 06/26/18 [Rx] Allergies/Adverse Reactions: Allergy/AdvReac Type Severity Reaction Status Date / Time Sulfa (Sulfonamide Allergy Hives Verified 06/21/18 17:07 Antibiotics) Date of admission: 06/22/18 18:32 Primary care physician: Anthony Vines DO Consults: 06/22/18 00:20 Consult to Nutrition [CONS] Routine Comment: Consulting Provider: NUTRITION Reason for Dietary Consult: Diet Education 06/22/18 15:16 Consult to Physical Therapy [CONS] Routine Comment: Evaluate, develop and implement POC Reason for Consult: weakness and mobility Does patient have active BEDREST order?: No Is patient medically & hemodynamically stable?: Yes OT [Consult to Occupational Therapy] [CONS] Routine Comment: Evaluate, develop and implement POC Reason for Consult: weakness and mobility Does patient have active BEDREST order?: No Is patient medically & hemodynamically stable?: Yes 06/23/18 14:22 Consult to [employer] [CONS] Routine Reason for SW Consult: PT rec. SNF Discharging clinician: Chapin Barbosa Anticipated date of discharge: 06/26/18 - Constitutional Vitals: Temp Pulse Resp BP Pulse Ox 98.2 F 66 16 105/56 95 06/26/18 07:00 06/26/18 07:00 06/26/18 07:00 06/26/18 09:51 06/26/18 07:00 Exam: Gen.: Vitals noted. No acute distress. AAOx3 HEENT: oropharynx clear, Normocephalic, atraumatic Neck: Supple. No adenopathy. Right-sided neck tender to palpation. Left-sided neck minimal tender to palpation. Cardiac: RRR, no murmur, +S1/S2 Pulmonary: CTA bilaterally, no wheezes, rales or rhonchi, equal chest expansion Abdomen: soft, nontender, Bowel sounds noted, no guarding MSK: right knee joint swelling Extremities: right lower extremity diffuse edema, no cyanosis or clubbing Neuro: A&Ox3, moves all extremities Psych: Appropriate mood and behavior - Patient Status Disposition: Transfer Inpatient Rehab Fac Condition: Fair Functional capacity at discharge: uses cane/walker Overall status at discharge: patient is progressing back to baseline - Discharge Instructions Follow Up With: Alessandro Vines DO [Primary Care Provider] - Additional Instructions: - Continue taking Xarelto for the DVT in right lower extremity -Follow-up with family physician in a week or 2 -Continue with PT/OT - Diet and Activity Activity: ambulate only with your walker Diet: advance to your usual diet <Chapin Barbosa - Last Filed: 06/26/18 20:02> Date of Encounter: 06/26/18 - Discharge Diagnosis (1) DVT (deep venous thrombosis) Status: Acute Qualifiers: DVT location: lower extremity Affected thrombotic vein of extremity: iliac Chronicity: acute Laterality: right Qualified Code(s): I82.421 - Acute embolism and thrombosis of right iliac vein (2) Right leg pain Status: Acute (3) Hypertension Status: Acute Qualifiers: Hypertension type: essential hypertension Qualified Code(s): I10 - Essential (primary) hypertension (4) Parkinsons disease Status: Chronic (5) Neck pain on right side Status: Acute (6) Thrush of mouth and esophagus Status: Suspected Hospital course: Ms. Hensley is a 78 year old female - Time Spent with Patient Total time spent providing and/or coordinating discharge services: 38min Date of admission: 06/22/18 18:32 Primary care physician: Anthony Vines DO Consults: 06/22/18 00:20 Consult to Nutrition [CONS] Routine Comment: Consulting Provider: NUTRITION Reason for Dietary Consult: Diet Education 06/22/18 15:16 Consult to Physical Therapy [CONS] Routine Comment: Evaluate, develop and implement POC Reason for Consult: weakness and mobility Does patient have active BEDREST order?: No Is patient medically & hemodynamically stable?: Yes OT [Consult to Occupational Therapy] [CONS] Routine Comment: Evaluate, develop and implement POC Reason for Consult: weakness and mobility Does patient have active BEDREST order?: No Is patient medically & hemodynamically stable?: Yes 06/23/18 14:22 Consult to [employer] [CONS] Routine Reason for SW Consult: PT rec. SNF - Constitutional Vitals: Temp Pulse Resp BP Pulse Ox 98.1 F 105 17 105/64 98 06/26/18 19:30 06/26/18 19:30 06/26/18 19:30 06/26/18 19:30 06/26/18 19:30 - Attending Attestation I examined this patient and my medical decision-making was reviewed with the Resident Physician on 06/26/18. I agree with the documented findings, disposition and treatment plan as described except to the extent set forth below. Ms Hensley has been admitted for acute DVT. She has been placed on Xarelto. She is now afebrile and ready for discharge to SNF. Exam alert Comfortable Mucus membranes dry Heart reg and not tachy now Lungs clear Abd soft Neck less tender Plan D/C to SNF when arranged.
[2018-06-26] MEDS: Ringers Solution, Lactated 1,000 ML IVC SCH (11:32)
--- NOTE | 2018-06-26 14:22 | Physician Discharge Referral ---
ExtendedCare Referral Info Transfer To: ECF Provider in Charge after Transfer: PCP Institutional Level of Care: Skilled - Diagnosis (1) DVT (deep venous thrombosis) Status: Acute (2) Right leg pain Status: Acute (3) Hypertension Status: Acute (4) Parkinsons disease Status: Chronic (5) Neck pain on right side Status: Acute (6) Thrush of mouth and esophagus Status: Suspected - Transfer Medications Prescriptions: Rivaroxaban [Xarelto] 15 mg PO BID #60 tablet Home Medications: Amlodipine Besylate 10 mg PO DAILY 04/06/17 [History] Atorvastatin [Lipitor] 40 mg PO HS 04/06/17 [History] Carbidopa/Levodopa ER 50/200 [Sinemet ER 50-200 Tab] 1 tab PO BID 04/06/17 [History] Sertraline [Zoloft] 150 mg PO DAILY 04/06/17 [History] Bethanechol [Urecholine] 25 mg PO BID 04/18/18 [History] Gabapentin [Neurontin] 300 mg PO BID 04/18/18 [History] Heparin 5,000 unit SQ Q12HCO vial 04/21/18 [Rx] Sucralfate [Carafate] 1 gm PO DAILY 06/22/18 [History] Aspirin 81 mg PO DAILY 06/24/18 [History] Bisacodyl [Dulcolax] 5 mg PO DAILY PRN 06/24/18 [History] Buspirone HCl [Buspar] 5 mg PO BID 06/24/18 [History] Docusate Sodium [Dok] 100 mg PO BID PRN 06/24/18 [History] Lansoprazole [Prevacid] 30 mg PO DAILY 06/24/18 [History] Rivaroxaban [Xarelto] 15 mg PO BID #60 tablet 06/26/18 [Rx] Allergies/Adverse Reactions: Allergy/AdvReac Type Severity Reaction Status Date / Time Sulfa (Sulfonamide Allergy Hives Verified 06/21/18 17:07 Antibiotics) - Respiratory Orders Smoking Cessation: Smoking cessation has been advised. For more information, call the [place] Tobacco Quit Line at 9-968-UKQX-NOW. - Advance Directives Code Status: Full Code - Mobility Orders Ambulate - Rehabiliation Orders Rehab Potential: Good Rehab Orders: Evaluation for Physical Therapy, Evaluation for Occupational Therapy - Diet Orders Cardiac CERTIFICATION: I certify that the transfer of the above named patient to an Extended Care Facility is necessary for the continuing treatment of the diagnosis listed. The above information is true and accurate reflection of patient's current condition. Confidential - Redisclosure prohibited without a patient's written consent.
--- NOTE | 2018-06-26 16:39 | Electrocardiograph Report ---
[address] [address] Test Date: 2018-06-25 Pat Name: Kristan Hensley Department: 114 Room: [facility] Gender: F [employer] Teacher: : 1940 Requested By: Chapin Barbosa Order Number: [id number] Reading MD: Anthony Cortes Measurements Intervals [place] Rate: 74 P: 47 NH: 145 QRS: 42 QRSD: 132 T: 4 QT: 396 QTc: 424 Interpretive Statements SINUS RHYTHM WITH SINUS ARRHYTHMIA RIGHT BUNDLE BRANCH BLOCK Electronically Signed On 06-26-2018 16:37:44 EDT by Anthony Cortes
[2018-06-26] MEDS: Ringers Solution, Lactated 500 ML IVC SCH ×2 (22:20)
--- NOTE | 2018-06-27 09:01 | Internal Med Progress Note ---
<Maira Tavarez - Last Filed: 06/27/18 08:59> Hospitalist Progress Note - Encounter Date of Encounter: 06/27/18 Time of Encounter: 08:59 - Subjective Interval History: Patient seen and examined at bedside. She is alert and oriented times 3 resting comfortably in bed. She stated that the Flexeril helped her neck pain and tenderness yesterday and requested another dose. She denied fever, chills, chest pain, shortness of breath. She denied right lower extremity pain. We are waiting [facility] to accept the patient then she will be discharged. - Exam Vitals: Temp Pulse Resp BP Pulse Ox 97.9 F 69 17 107/57 97 06/27/18 07:17 06/27/18 07:17 06/27/18 07:17 06/27/18 07:17 06/27/18 07:17 Exam: Gen.: Vitals noted. No acute distress. AAOx3 HEENT: oropharynx clear, Normocephalic, atraumatic Neck: Supple. No adenopathy. Right-sided neck tender to palpation. Left-sided neck minimal tender to palpation. Cardiac: RRR, no murmur, +S1/S2 Pulmonary: CTA bilaterally, no wheezes, rales or rhonchi, equal chest expansion Abdomen: soft, nontender, Bowel sounds noted, no guarding MSK: right knee joint swelling Extremities: right lower extremity diffuse edema, no cyanosis or clubbing, bilateral pulses palpable Neuro: A&Ox3, moves all extremities Psych: Appropriate mood and behavior - Assessment and Plan (1) DVT (deep venous thrombosis) Status: Acute Assessment and Plan: DVT of right lower extremity. -This is likely a provoked DVT secondary to having surgery one month ago for which the patient stated she was in bed most days and have little ambulation -venous Doppler ultrasound showed an acute deep venous thrombosis in the right distal iliac, saphenofemoral junction, common femoral, superficial femoral and popliteal veins. -Right lower extremity is diffusely swollen, however pulses are palpable and there are no signs of compartment syndrome. Plan: -Currently tolerating Xarelto. -We are waiting [facility] to accept the patient then she will be discharged. -Continue PT/OT -continue pain management (2) Right leg pain Status: Acute Assessment and Plan: Secondary to DVT of right lower extremity. Patient reports pain is improved. -Continue with pain management (3) Hypertension Status: Acute Assessment and Plan: History of hypertension taking amlodipine -blood pressure has been normal without medication -will continue to monitor (4) Parkinsons disease Status: Chronic Assessment and Plan: Continuing home carbidopa levodopa (5) Neck pain on right side Status: Acute Assessment and Plan: This is musculoskeletal in nature. This is likely secondary to her rigidity from the Parkinson's disease. -Flexeril has helped -right-sided neck is tender to palpation -Soft tissue neck CT showed no lymphadenopathy or findings to explain right- sided neck pain. However a 1.7 cm nodule within the left lobe of the thyroid gland was found with recommendations of follow-up ultrasound. Plan: -continue Flexeril as needed -patient will need follow-up on thyroid nodule with family doctor (6) Thrush of mouth and esophagus Status: Suspected Assessment and Plan: Patient hyper pain that radiated down to chest Thrush noted on tongue. -Continue Started on Diflucan day 3 and Nystatin. DVT Prophylaxis: Xerelto - Time Spent with Patient Total time spent is greater than 50% in coordination of care (as documented) at patient's floor/unit and/or counseling patient: Internal Medicine: Result - Labs CBC & Chem 7: 06/25/18 06:37 06/25/18 06:37 - ABG Interpretation ABG results: PT/INR, D-dimer PT 18.3 Seconds (9.4-12.1) H 06/25/18 06:37 - Impressions Impressions Soft Tissue Neck CT 06/26/18 12:30 IMPRESSION: 1. Indeterminate 1.7 cm nodule within the left lobe of the thyroid gland for which a thyroid ultrasound is recommended. 2. No lymphadenopathy or findings to explain the patient's right-sided neck pain. D/ / 06/26/2018 13:26:02 [facility] Hoffman [facility] Interpreting Provider: Keny Hoffman MD Consult Discharge Plan - Plan Additional Instructions: - Continue taking Xarelto for the DVT in right lower extremity -Follow-up with family physician in a week or 2 -Continue with PT/OT Referrals: Alessandro Vines DO [Primary Care Provider] - 07/04/18 4:00 pm Prescriptions: RX: Rivaroxaban [Xarelto] 15 mg PO BID #60 tablet <Chapin Barbosa - Last Filed: 06/27/18 17:39> Hospitalist Progress Note - Encounter Date of Encounter: 06/27/18 - Exam Vitals: Temp Pulse Resp BP Pulse Ox 98.4 F 80 16 117/75 95 06/27/18 12:15 06/27/18 12:15 06/27/18 12:15 06/27/18 12:15 06/27/18 12:15 - Assessment and Plan (1) DVT (deep venous thrombosis) Status: Acute (2) Right leg pain Status: Acute (3) Hypertension Status: Acute (4) Parkinsons disease Status: Chronic (5) Neck pain on right side Status: Acute (6) Thrush of mouth and esophagus Status: Suspected - Time Spent with Patient Total time spent is greater than 50% in coordination of care (as documented) at patient's floor/unit and/or counseling patient: Internal Medicine: Result - Labs CBC & Chem 7: 06/25/18 06:37 06/25/18 06:37 - ABG Interpretation ABG results: PT/INR, D-dimer PT 18.3 Seconds (9.4-12.1) H 06/25/18 06:37 - Attending Attestation I examined this patient and my medical decision-making was reviewed with the Resident Physician on 06/27/18. I agree with the documented findings, disposition and treatment plan as described except to the extent set forth below. Ms Hensley is currently admitted for acute DVT. She is tolerating medication. She remains moderate to high risk. Ms Hensley is up in chair. She feels OK and Flexeril helps her neck. Exam alert Comfortable Mucus membranes dry Heart reg No wheeze I/P 1. DVT on Xarelto 2. Neck pain better with Flexeril Plan d/c to SNF today. <Maira Tavarez - Last Filed: 06/27/18 08:59> (1) DVT (deep venous thrombosis) Qualifiers: DVT location: lower extremity Affected thrombotic vein of extremity: iliac Chronicity: acute Laterality: right Qualified Code(s): I82.421 - Acute embolism and thrombosis of right iliac vein (3) Hypertension Qualifiers: Hypertension type: essential hypertension Qualified Code(s): I10 - Essential (primary) hypertension <Chapin Barbosa - Last Filed: 06/27/18 17:39> (1) DVT (deep venous thrombosis) Qualifiers: DVT location: lower extremity Affected thrombotic vein of extremity: iliac Chronicity: acute Laterality: right Qualified Code(s): I82.421 - Acute embolism and thrombosis of right iliac vein (3) Hypertension Qualifiers: Hypertension type: essential hypertension Qualified Code(s): I10 - Essential (primary) hypertension
[2018-06-27] MEDS: Ringers Solution, Lactated 500 ML IVC SCH (10:09)
[2018-06-27] MEDS: Aspirin 81 MG TAB.CHEW PO SCH (10:09)
[2018-06-27] MEDS: Fluconazole 100 MG TABLET PO SCH (10:09)
[2018-06-27] MEDS: Gabapentin 300 MG CAPSULE PO SCH (10:09)
[2018-06-27] MEDS: Carbidopa/Levodopa ER 50/200 TABLET PO SCH (10:09)
[2018-06-27] MEDS: *HR* Rivaroxaban 15 MG TABLET PO SCH (10:10)
[2018-06-27] MEDS: amLODIPine 5 MG TABLET PO SCH (10:10)
[2018-06-27] MEDS: Nystatin SUSP 5 ML UD.LIQ PO SCH (10:10)
[2018-06-27 12:17] VITALS: BP 117/75
== END 2018-06-27 12:25 | DRG 300 ==
LOC: 3NENU 17:04 → EMEROOARM 17:04 → SUATTDRO 22:00 → 3NENU 23:47
PROVIDERS: ADMIT Internal Medicine; ATTEND Internal Medicine

== ENCOUNTER 2018-10-01 14:54 | Inpatient (IN) ==
--- NOTE | 2018-10-01 15:35 | Emergency Department Note ---
Disposition Clinical Impression: Failure to thrive in adult Malnourished Qualifiers: Malnutrition type: unspecified type Qualified Code(s): E46 - Unspecified protein-calorie malnutrition Disposition: Still a Patient Time of Disposition: 15:44 General Adult HPI - General Chief complaint: ED Nausea/Vomiting/Diarrhea Stated complaint: vomiting Time Seen by Provider: 10/01/18 14:58 Source: EMS Limitations: no limitations Nursing Notes Reviewed: Yes Vital Signs Reviewed: Yes - History of Present Illness HPI Narrative: Attestation note: Patient was seen with the emergency medicine resident/nurse practitioner/physician promotions assistant/transitional resident/medical student: Dr. Jerald Quevedo. This includes well any procedures performed for this significant portion thereof which are to include EKG and bedside ultrasound I have personally performed a face to face evaluation on this patient. I have reviewed and agree with history and physical examination patient management and disposition. Briefly the salient points of the case are as follows: 78-year-old female weight loss about 40 pounds a month or so snf facility patient by EMS patient initially was seen at [facility] short while ago but declined evaluation and treatment however she says she changed her mind very soft-spoken unreliable historian recheck in with a snf facility and reviewing paperwork patient appears edentulous been dehydrated elderly and kyphotic. There is a history of depression and that certainly figures prominently in the weight loss. We will determine that the patient is been socially withdrawing she said family are goes to therapy. We will get screening labs EKG and chest x-ray. Anticipated disposition is likely admission for further metabolic and nutritional support Pain Scale: 5 - Related Data Home Medications Medication Instructions Recorded Confirmed Amlodipine Besylate 10 mg PO DAILY 04/06/17 06/24/18 Atorvastatin [Lipitor] 40 mg PO HS 04/06/17 06/24/18 Carbidopa/Levodopa ER 50/200 1 tab PO BID 04/06/17 06/24/18 [Sinemet ER 50-200 Tab] Sertraline [Zoloft] 150 mg PO DAILY 04/06/17 06/24/18 Bethanechol [Urecholine] 25 mg PO BID 04/18/18 06/24/18 Gabapentin [Neurontin] 300 mg PO BID 04/18/18 06/24/18 Sucralfate [Carafate] 1 gm PO DAILY 06/22/18 Aspirin 81 mg PO DAILY 06/24/18 06/24/18 Bisacodyl [Dulcolax] 5 mg PO DAILY PRN 06/24/18 06/24/18 Buspirone HCl [Buspar] 5 mg PO BID 06/24/18 06/24/18 Docusate Sodium [Dok] 100 mg PO BID PRN 06/24/18 06/24/18 Lansoprazole [Prevacid] 30 mg PO DAILY 06/24/18 06/24/18 Previous Rx's Medication Instructions Recorded Heparin 5,000 unit SQ Q12HCO vial 04/21/18 Rivaroxaban [Xarelto] 15 mg PO BID #60 tablet 06/26/18 Allergies Allergy/AdvReac Type Severity Reaction Status Date / Time Sulfa (Sulfonamide Allergy Hives Verified 06/21/18 17:07 Antibiotics) Past Medical History - Past Medical History Medical history: Reports: coronary artery disease, CVA, hyperlipidemia, hypertension Surgical history: Reports: no surgical history, cholecystectomy Psychiatric history: Reports: depression - Social History Smoking Status: Never smoker Smokeless Tobacco Status: No Alcohol use: Reports: none Drug use: Reports: none Physical Exam - General Limitations: no limitations General appearance: alert Course Vital Signs Temperature 98.3 F 10/01/18 15:08 Pulse Rate 72 10/01/18 15:08 Respiratory Rate 16 10/01/18 15:08 Blood Pressure 148/99 10/01/18 15:08 O2 Sat by Pulse Oximetry 97 10/01/18 15:08 Temperature 98.3 F 10/01/18 15:08 Pulse Rate 72 10/01/18 15:08 Respiratory Rate 16 10/01/18 15:08 Blood Pressure 148/99 10/01/18 15:08 O2 Sat by Pulse Oximetry 97 10/01/18 15:08 Oxygen Delivery Oxygen Delivery Room Air
[2018-10-01 15:36] LABS: Basophils % 0.3 %; Eosinophils % 0.1 %; Hematocrit 42.6 % (35.3-44.9); Hemoglobin 13.8 g/dL (11.5-15.4); Immature Granulocytes % 0.5 % (0-4); Lymphocytes # 1.3 K/mcL (0.6-4.6); Lymphocytes % 16.8 %; Mean Corpuscular HGB Conc 32.4 g/dL (31.6-35.5); Mean Corpuscular Hemoglobin 26.8 pg (28.0-33.3); Mean Corpuscular Volume 82.7 fL (83.0-100.0); Mean Platelet Volume 10.3 fL (9.4-12.4); Monocytes # 0.4 K/mcL (0.0-1.3); Monocytes % 5.1 %; Neutrophils # 5.9 K/mcL (1.6-8.9); Platelet Count 242 K/mcL (140-400); Red Blood Count 5.15 M/mcL (3.82-4.97); Red Cell Distribution Width 14.2 % (11.5-14.5); Segmented Neutrophils % 77.2 %; White Blood Count 7.6 K/mcL (4.3-11.1)
[2018-10-01] MEDS ORDERED: Ondansetron 4 MG/2 ML VIAL IVP ONE (15:42)
--- NOTE | 2018-10-01 15:42 | Emergency Department Note ---
Disposition Clinical Impression: Hypercalcemia, Kidney stone on right side UTI (urinary tract infection) Qualifiers: Urinary tract infection type: site unspecified Hematuria presence: with hematuria Qualified Code(s): N39.0 - Urinary tract infection, site not specified; R31.9 - Hematuria, unspecified Disposition: Admitted As Inpatient Condition: Fair Forms: ED Satisfaction Letter Time of Disposition: 16:25 General Adult HPI - General Stated complaint: vomiting Time Seen by Provider: 10/01/18 14:58 Source: EMS Mode of arrival: EMS Limitations: no limitations Nursing Notes Reviewed: Yes Vital Signs Reviewed: Yes - History of Present Illness HPI Narrative: Patient is a 78-year-old female that is transferred here from [facility] for vomiting and weight loss. She is edentulous and soft-spoken and is able to provide minimal history. I called and spoke with [facility] nursing will be and she says that the patient has been having weight loss and vomiting since February. States that the POA had wanted her and hospice and other family has been visiting and talking with the patient and the patient is now decided that she wanted to come out and be evaluated for her weight loss and vomiting. It is my understanding that in the past she has refused a workup but at this time she would like to be evaluated for her symptoms. Pain Scale: 5 - Related Data Home Medications Medication Instructions Recorded Confirmed Amlodipine Besylate 10 mg PO DAILY 04/06/17 06/24/18 Atorvastatin [Lipitor] 40 mg PO HS 04/06/17 06/24/18 Carbidopa/Levodopa ER 50/200 1 tab PO BID 04/06/17 06/24/18 [Sinemet ER 50-200 Tab] Sertraline [Zoloft] 150 mg PO DAILY 04/06/17 06/24/18 Bethanechol [Urecholine] 25 mg PO BID 04/18/18 06/24/18 Gabapentin [Neurontin] 300 mg PO BID 04/18/18 06/24/18 Sucralfate [Carafate] 1 gm PO DAILY 06/22/18 Aspirin 81 mg PO DAILY 06/24/18 06/24/18 Bisacodyl [Dulcolax] 5 mg PO DAILY PRN 06/24/18 06/24/18 Buspirone HCl [Buspar] 5 mg PO BID 06/24/18 06/24/18 Docusate Sodium [Dok] 100 mg PO BID PRN 06/24/18 06/24/18 Lansoprazole [Prevacid] 30 mg PO DAILY 06/24/18 06/24/18 Previous Rx's Medication Instructions Recorded Heparin 5,000 unit SQ Q12HCO vial 04/21/18 Rivaroxaban [Xarelto] 15 mg PO BID #60 tablet 06/26/18 Allergies Allergy/AdvReac Type Severity Reaction Status Date / Time Sulfa (Sulfonamide Allergy Hives Verified 06/21/18 17:07 Antibiotics) All systems ED: reviewed and negative except as stated. Cardiovascular: Denies: chest pain Respiratory: Denies: dyspnea Gastrointestinal: Reports: abdominal pain, vomiting Past Medical History - Past Medical History Medical history: Reports: coronary artery disease, CVA, hyperlipidemia, hypertension Surgical history: Reports: no surgical history, cholecystectomy Psychiatric history: Reports: depression - Social History Smoking Status: Never smoker Smokeless Tobacco Status: No Alcohol use: Reports: none Drug use: Reports: none Physical Exam - General Limitations: no limitations General appearance: alert, in no apparent distress - Head Head exam: atraumatic, normocephalic - Eye Eye exam: Present: normal appearance, EOMI - Neck Neck exam: Present: normal inspection, full ROM, trachea midline - Respiratory Respiratory exam: Present: normal lung sounds bilaterally. Absent: respiratory distress, wheezes - Cardiovascular Cardiovascular exam: Present: regular rate, normal rhythm, normal heart sounds, +S1, +S2 - Abdominal Exam Abdominal exam: Present: soft, Non-Tender, normal bowel sounds - Neurological Exam Neurological exam: Present: alert, oriented X3 - Psychiatric Psychiatric exam: Present: normal affect, normal mood - Skin Skin exam: Present: warm, dry, intact Course Vital Signs Temperature 98.3 F 10/01/18 15:08 Pulse Rate 72 10/01/18 15:08 Respiratory Rate 16 10/01/18 15:08 Blood Pressure 148/99 10/01/18 15:08 O2 Sat by Pulse Oximetry 97 10/01/18 15:08 Temperature 98.3 F 10/01/18 15:08 Pulse Rate 72 10/01/18 15:08 Respiratory Rate 16 10/01/18 15:08 Blood Pressure 148/99 10/01/18 15:08 O2 Sat by Pulse Oximetry 97 10/01/18 15:08 Oxygen Delivery Oxygen Delivery Room Air Medical Decision Making - MDM Narrative Medical decision making narrative: Due the patient's and into the emergency department with reports of weight loss and vomiting we contact. [place] where the patient resides. We discussed the patient's history and what she came out here to the emergency department today. Laboratory and imaging workup was obtained. The patient does have an elevated calcium in the CT scan of the abdomen and pelvis shows a 4 mm stone as well as a narrowing of the rectum. It was discussed this potentially be normal peristalsis versus a lesion. The patient having a history of significant weight loss, vomiting and elevated LC and there is concern that this could potentially be malignant. This was relayed to the patient and the patient's family member at bedside. The patient also has evidence of a possible urinary tract infection. Patient was given Rocephin. A consult to urology was placed in [facility]. The patient will require admission to the hospital for further evaluation and management. I called and spoke the admitting hospitalist Dr. Miguel and he has accepted the patient to their service. Patient be admitted to the hospital at this time for further evaluation and management. - Medical Records Medical records reviewed: Yes I reviewed the patient's medical records. - Lab Data Lab results reviewed: Yes I reviewed the patient's lab results. Result diagrams: 10/01/18 15:21 Lab Results 10/01/18 Range/Units 15:21 WBC 7.6 (4.3-11.1) K/mcL RBC 5.15 H (3.82-4.97) M/mcL Hgb 13.8 (11.5-15.4) g/dL Hct 42.6 (35.3-44.9) % MCV 82.7 L (83.0-100.0) fL MCH 26.8 L (28.0-33.3) pg MCHC 32.4 (31.6-35.5) g/dL RDW 14.2 (11.5-14.5) % Plt Count 242 (140-400) K/mcL MPV 10.3 (9.4-12.4) fL Immature Gran % 0.5 (0-4) % Seg Neutrophils % 77.2 % Lymphocytes % 16.8 % Monocytes % 5.1 % Eosinophils % 0.1 % Basophils % 0.3 % Neutrophils # 5.9 (1.6-8.9) K/mcL Lymphocytes # 1.3 (0.6-4.6) K/mcL Monocytes # 0.4 (0.0-1.3) K/mcL Eosinophils # 0.0 (0.0-0.6) K/mcL Basophils # 0.0 (0.0-0.2) K/mcL - Radiology Data Radiology results reviewed: Yes I reviewed the patient's radiology results. - EKG Data EKG #1 EKG attestation: Yes I reviewed and interpreted this EKG. EKG results narrative: EKG shows a sinus rhythm at a rate of 89 beats from it, NH interval 141, QRS duration 117, QTc of 504. There is evidence of STEMI on EKG. There are T-wave inversions in lead 3 and aVF as well as some mild depression and T-wave inversions in V2. This is very similar to prior EKG on 06/25/18.
[2018-10-01 15:44] LABS: Prothrombin Time 11.9 Seconds (9.4-12.1)
[2018-10-01] MEDS ORDERED: 0.9 % Sodium Chloride 1,000 ML IVC ONE (15:45)
[2018-10-01 15:53] LABS: Bilirubin,Urine Moderate (Negative); Blood,Urine Large (Negative); Clarity,Urine Cloudy (Clear); Color,Urine Dark Yellow (Yellow); Glucose,Urine (UA) Normal (Normal); Ketones,Urine 15 mg/dL (Negative); Leukocyte Esterase,Urine Moderate (Negative); Nitrite,Urine Negative (Negative); PH,Urine 5.5 pH Units (5.0-8.0); Protein,Urine Negative (Neg-Trace); Specific Gravity,Urine 1.021 (1.010-1.025); Urobilinogen,Urine Normal (Normal)
[2018-10-01 15:55] LABS: Alanine Aminotransferase 3 Units/L (7-52); Albumin 3.8 g/dL (3.5-5.7); Albumin/Globulin Ratio 1.1 (1.1-2.2); Alkaline Phosphatase 82 Units/L (34-104); Amylase 53 Units/L (29-103); Aspartate Amino Transferase 15 Units/L (13-39); BUN/Creatinine Ratio 23 (6-26); Bilirubin,Direct 0.2 mg/dL (0.0-0.2); Bilirubin,Indirect 0.5 mg/dL (0.0-1.2); Bilirubin,Total 0.7 mg/dL (0.3-1.0); Blood Urea Nitrogen 21 mg/dL (8-23); Calcium 10.9 mg/dL (8.6-10.3); Carbon Dioxide 31 mEq/L (23-29); Chloride 93 mEq/L (98-107); Globulin 3.5 g/dL (2.4-3.5); Glucose 112 mg/dL (70-105); Osmolality,Calculated 292 (280-300); Potassium 3.6 mEq/L (3.5-5.1); Sodium 139 mEq/L (136-145); Total Protein 7.3 g/dL (6.4-8.9); eGFR For African Americans > 60 (> 60); eGFR For Non-African Americans > 60 (> 60)
[2018-10-01 15:57] LABS: Bacteria,Urine Many per hpf (None-Few); Hyaline Casts,Urine None Seen per lpf (None-Few); Squamous Epithelial Cell,Urine Moderate per lpf (None-Few)
[2018-10-01] MEDS ORDERED: cefTRIAXone 1,000 MG in Water for inj. (sterile) 10 ML IVP ONE (16:10)
--- NOTE | 2018-10-01 16:54 | Internal Med History&Physical ---
Date of Encounter: 10/01/18 Time of Encounter: 16:54 Internal Medicine - H&P: HPI History of present illness: Ms. Hensley is a 78 year old female with history of HTN, PFO, CVA with residual weakness, Parkinsons disease, DVT on Xarelto, presented from SNF for intractable N/V and weight loss. Patient is a poor historian and so some history is limited. No family at bedside during my assessment. Onset of symptoms was 7 months ago but she states significantly worse in the past 2 weeks. From ports, the patient was to get workup for this but she refused. She is now agreeable. She denies chest pain, SOB, fevers/chills. She was evaluated in ED found to have elevated calcium at 10.9. A CT of abdomen/pelvis showed a 4 mm stone and also a narrowing of the rectum that could be normal peristalsis or a lesion. Urinalysis was consistent with UTI. An EKG done showed no acute changes from prior study. She was given 1 L normal saline, Rocephin, and Zofran. Currently in no acute distress. Past Med Surg Social Fam HX - Past Medical History Medical history: coronary artery disease, CVA, hyperlipidemia, hypertension Additional medical history: Parkinson's Disease Psychiatric history: depression - Past Surgical History Surgical History: no surgical history, cholecystectomy Additional surgical history: Laparoscopic - Social History Smoking Status: Never smoker Smokeless Tobacco Status: No Alcohol use: none Drug use: none - Family History Mother Hx Family Cardiac Disorders: Yes Father Hx Family Cardiac Disorders: Yes Internal Medicine - H&P: Meds Amlodipine Besylate 10 mg PO DAILY 04/06/17 [History] Atorvastatin [Lipitor] 40 mg PO HS 04/06/17 [History] Carbidopa/Levodopa ER 50/200 [Sinemet ER 50-200 Tab] 1 tab PO BID 04/06/17 [History] Sertraline [Zoloft] 150 mg PO DAILY 04/06/17 [History] Bethanechol [Urecholine] 25 mg PO BID 04/18/18 [History] Gabapentin [Neurontin] 300 mg PO BID 04/18/18 [History] Sucralfate [Carafate] 1 gm PO DAILY 06/22/18 [History] Aspirin 81 mg PO DAILY 06/24/18 [History] Buspirone HCl [Buspar] 5 mg PO BID 06/24/18 [History] Docusate Sodium [Dok] 100 mg PO BID PRN 06/24/18 [History] Lansoprazole [Prevacid] 30 mg PO DAILY PRN 06/24/18 [History] Rivaroxaban [Xarelto] 15 mg PO BID #60 tablet 06/26/18 [Rx] Ondansetron [Zofran ODT] 8 mg SL Q4HR 10/01/18 [History] Oxybutynin [Ditropan] 5 mg PO BID 10/01/18 [History] Promethazine [Phenergan] 25 mg RC Q6H 10/01/18 [History] Tramadol HCl [Ultram] 50 mg PO QID PRN 10/01/18 [History] Allergy/AdvReac Type Severity Reaction Status Date / Time Sulfa (Sulfonamide Allergy Hives Verified 06/21/18 17:07 Antibiotics) All Systems PM: A 10-system review of systems was performed and is negative for pertinent findings except as documented above in the HPI. - Constitutional Vitals: Temp Pulse Resp BP Pulse Ox 98.3 F 87 16 175/96 100 10/01/18 15:08 10/01/18 16:52 10/01/18 16:52 10/01/18 16:52 10/01/18 16:52 General appearance: Present: A&O X 3, no acute distress Exam: . - Head Head exam: Present: atraumatic, normocephalic - Eye Eye exam: Present: PERRL, conjuntiva pink, sclera anicteric Pupils: Present: PERRL - ENT ENT exam: Present: mucous membranes dry - Neck Neck exam general surgery: Present: supple, trachea midline. Absent: lymphadenopathy - Respiratory Respiratory exam: Present: CTAB. Absent: accessory muscle use, rales, rhonchi, wheezes - Cardiovascular Cardiovascular exam: Present: RRR, +S1, +S2. Absent: diastolic murmur, gallop, rubs, systolic murmur - GI/Abdominal GI/Abdominal exam: Present: normal bowel sounds, soft, no peritoneal signs. Absent: distended, tenderness - Extremities Exam Extremities exam: Present: warm, radial pulses palpable and symmetrical. Absent: calf tenderness, cyanotic, pedal edema - Neurological Exam Neurological exam: Present: CN II-XII intact, oriented X3, no focal deficits. Absent: pronater drift, facial droop, speech deficit - Skin Skin exam: Present: dry, intact Internal Med - H&P Results - Labs CBC & Chem 7: 10/01/18 15:21 10/01/18 15:21 Labs: Short CBC 10/01/18 Range/Units 15:21 WBC 7.6 (4.3-11.1) K/mcL Hgb 13.8 (11.5-15.4) g/dL Hct 42.6 (35.3-44.9) % Plt Count 242 (140-400) K/mcL Neutrophils # 5.9 (1.6-8.9) K/mcL BMP 10/01/18 15:21 Sodium 139 Potassium 3.6 Chloride 93 L Carbon Dioxide 31 H BUN 21 Creatinine 0.91 Glucose 112 H Calcium 10.9 H Liver Function 10/01/18 Range/Units 15:21 Total Bilirubin 0.7 (0.3-1.0) mg/dL Direct Bilirubin 0.2 (0.0-0.2) mg/dL AST 15 (13-39) Units/L ALT 3 L (7-52) Units/L Alkaline Phosphatase 82 (34-104) Units/L Albumin 3.8 (3.5-5.7) g/dL Urine 10/01/18 Range/Units 15:43 Urine Color Dark Yellow (Yellow) Urine Clarity Cloudy A (Clear) Urine pH 5.5 (5.0-8.0) pH Units Ur Specific [place] 1.021 (1.010-1.025) Urine Protein Negative (Neg-Trace) mg/dL Urine Glucose (UA) Normal (Normal) mg/dL - Impressions ITS Impressions Abdomen/Pelvis CT 10/01/18 15:06 IMPRESSION: 4 mm renal calculus at the right ureteropelvic junction without hydronephrosis. This calculus was previously seen at the lower pole of the right kidney. Moderate stool burden in the rectosigmoid colon with a 3 cm region of collapsed rectum. While this may be secondary to normal peristalsis, consider correlation with colonoscopy to rule out a focally constricting lesion. D/ / Baldomero Hernández / Baldomero Hernández Interpreting Provider: Baldomero Hernández - Assessment and Plan (1) Intractable nausea and vomiting Current Visit: No Status: Acute Assessment and plan: There is concern from malignancy for several months per report. A CT abdomen/pelvis showed what could be peristalsis vs colon lesion. She has severe weight loss, nausea/vomiting, hypercalcemia, history of DVT which has been concerning. Patient refused workup in the past but now agreeable to it. Continue IV fluid hydration, monitor electrolytes, IV Zofran prn. Consult GI for colonoscopy with biopsy. Hold Xarelto and aspirin for today. Qualifiers: Vomiting type: unspecified Qualified Code(s): R11.2 - Nausea with vomiting, unspecified (2) Failure to thrive in adult Current Visit: Yes Status: Acute Assessment and plan: Nutrition consult. (3) Hypercalcemia Current Visit: Yes Status: Acute Assessment and plan: Concern there may be a malignancy process. Patient does also appear slightly dehydrated. Continue workup as above and normal saline, check ionized calcium level in AM. (4) Kidney stone on right side Current Visit: Yes Status: Acute Assessment and plan: Urology consulted in ED. (5) UTI (urinary tract infection) Current Visit: Yes Status: Acute Assessment and plan: Continue Rocephin, Qualifiers: Urinary tract infection type: site unspecified Hematuria presence: with hematuria Qualified Code(s): N39.0 - Urinary tract infection, site not specified; R31.9 - Hematuria, unspecified (6) Depression Current Visit: No Status: Acute Assessment and plan: Resume home medications. Qualifiers: Depression Type: major depressive disorder Major depression recurrence: unspecified whether recurrent Major depression episode severity: unspecified Qualified Code(s): F32.9 - Major depressive disorder, single episode, unspecified (7) Hypertension Current Visit: No Status: Acute Assessment and plan: Resume Norvasc. Place IV Labetolol prn as patient is hypertensive and had episodes of tachycardia in ED. Qualifiers: Hypertension type: essential hypertension Qualified Code(s): I10 - Essential (primary) hypertension (8) Parkinsons disease Current Visit: No Status: Chronic Assessment and plan: Continue home medications. (9) History of DVT (deep vein thrombosis) Current Visit: Yes Status: Acute Assessment and plan: Found on 06/21/18, patient was started on Xarelto. It was suspect provoked from a surgery although not completely clear. Hold Xarelto for now in case a Colonoscopy with biopsy will be done. DVT prophylaxis with SQ heparin in the mean time. - Time Spent With Patient Total time spent is greater than 50% in coordination of care (as documented) at patient's floor/unit and/or counseling patient:
[2018-10-01] MEDS ORDERED: traMADol 50 MG TABLET PO PRN (17:51)
[2018-10-01] MEDS ORDERED: Naloxone 0.4 MG/ML INJ IVP PRN (17:53)
[2018-10-01] MEDS ORDERED: Ondansetron 4 MG/2 ML VIAL ONE (18:17)
[2018-10-01] MEDS ORDERED: 0.9 % Sodium Chloride 1,000 ML ONE (18:17)
[2018-10-01] MEDS: Ondansetron 4 MG/2 ML VIAL IVP PRN (18:20)
[2018-10-01] MEDS: 0.9 % Sodium Chloride 1,000 ML IVC SCH (18:25)
[2018-10-01] MEDS: *HR* Promethazine 25 MG/ML VIAL IVP PRN (19:49)
[2018-10-01] MEDS: Ondansetron ODT 4 MG TAB.RAPDIS SL SCH (21:00)
[2018-10-01] MEDS ORDERED: *HR* Rivaroxaban 15 MG TABLET PO SCH (21:00)
[2018-10-01] MEDS: Carbidopa/Levodopa ER 50/200 TABLET PO SCH (21:00)
[2018-10-02] MEDS: Ondansetron ODT 4 MG TAB.RAPDIS SL SCH ×6 (03:03→20:03)
[2018-10-02] MEDS: 0.9 % Sodium Chloride 1,000 ML IVC SCH (05:48)
[2018-10-02] MEDS: Ondansetron 4 MG/2 ML VIAL IVP PRN (05:58)
[2018-10-02] MEDS ORDERED: *HR* Heparin 5,000 UNIT/ML VIAL SQ SCH (06:00)
[2018-10-02 08:10] LABS: VBG Ionized Calcium 1.22 mmol/L (1.15-1.35)
[2018-10-02 08:15] LABS: Basophils % 0.2 %; Eosinophils % 0.1 %; Hematocrit 39.2 % (35.3-44.9); Hemoglobin 12.4 g/dL (11.5-15.4); Immature Granulocytes % 0.6 % (0-4); Lymphocytes # 1.4 K/mcL (0.6-4.6); Lymphocytes % 15.7 %; Mean Corpuscular HGB Conc 31.6 g/dL (31.6-35.5); Mean Corpuscular Hemoglobin 26.6 pg (28.0-33.3); Mean Corpuscular Volume 83.9 fL (83.0-100.0); Mean Platelet Volume 11.1 fL (9.4-12.4); Monocytes # 0.4 K/mcL (0.0-1.3); Monocytes % 4.7 %; Platelet Count 202 K/mcL (140-400); Red Blood Count 4.67 M/mcL (3.82-4.97); Red Cell Distribution Width 14.3 % (11.5-14.5); Segmented Neutrophils % 78.7 %; White Blood Count 8.9 K/mcL (4.3-11.1)
[2018-10-02 08:18] LABS: BUN/Creatinine Ratio 20 (6-26); Blood Urea Nitrogen 16 mg/dL (8-23); Calcium 9.5 mg/dL (8.6-10.3); Carbon Dioxide 28 mEq/L (23-29); Glucose 112 mg/dL (70-105); eGFR For African Americans > 60 (> 60); eGFR For Non-African Americans > 60 (> 60)
[2018-10-02 09:36] LABS: Chloride 102 mEq/L (98-107); Osmolality,Calculated 294 (280-300); Potassium 3.2 mEq/L (3.5-5.1); Sodium 141 mEq/L (136-145)
[2018-10-02] MEDS: Carbidopa/Levodopa ER 50/200 TABLET PO SCH ×2 (10:39→21:06)
[2018-10-02] MEDS: amLODIPine 5 MG TABLET PO SCH (10:39)
[2018-10-02] MEDS: cefTRIAXone 1,000 MG in Water for inj. (sterile) 10 ML IVP SCH (10:40)
--- NOTE | 2018-10-02 11:33 | Event Note ---
Date of Encounter: 10/02/18 Time of Encounter: 11:28 patient will be evaluated later today. I reviewed the CT scan and there is a stone in the right kidney but no significant hydronephrosis. It could be "ball- valving" and causing some of her symptoms. My plan will likely be to manage conservatively manage symptoms overnight and reevaluate in the AM. If still symptomatic we can consider placement of a ureteral stent tomorrow afternoon.
--- NOTE | 2018-10-02 13:59 | Gastroenterology Consult Note ---
<Summer Lewis - Last Filed: 10/02/18 13:39> Date of Encounter: 10/02/18 Time of Encounter: 10:35 - Assessment and plan (1) Intractable nausea and vomiting Current Visit: No Status: Acute Assessment and plan: EGD 05/02 was normal, MRI brain was negative, no improvement after cholecystectomy. Will repeat EGD tomorrow. Continue PPI, antiemetics as needed. Qualifiers: Vomiting type: unspecified Qualified Code(s): R11.2 - Nausea with vomiting, unspecified (2) Abnormal CT of the abdomen Current Visit: Yes Status: Acute Assessment and plan: CT shows rectal thickening, needs colonoscopy but unable to tolerate the prep due to nausea and vomiting, will plan for flex sig tomorrow. - Time Spent With Patient Total time spent is greater than 50% in coordination of care (as documented) at patient's floor/unit and/or counseling patient: GI History of Present Illness - Data of Consult Patient: known to practice within the last 3 years Consult date: 10/02/18 Requesting Physician: Fabio Jennings - Consult Narrative Reason for consult: intractable nausea and vomiting, abnormal CT abdomen History of present illness: Ms. Hensley is a 78 year old female with history of HTN, PFO, CVA with residual weakness, Parkinsons disease, DVT on Xarelto, presented from SNF for intractable N/V and weight loss. Onset of symptoms was 7 months ago but she states significantly worse in the past 2 weeks. She is now agreeable. She denies chest pain, SOB, fevers/chills. She was evaluated in ED found to have elevated calcium at 10.9. A CT of abdomen/pelvis showed a 4 mm stone and also a narrowing of the rectum that could be normal peristalsis or a lesion. Urinalysis was consistent with UTI. An EKG done showed no acute changes from prior study. She complains of abdominal pain that improves after vomiting. She has nausea anytime she eats anything. She states she can keep sips of water down. There was a small amount of yellow liquid emesis at her bedside at the time of assessment. EGD: 05/02 Small hiatal hernia, normal stomach and duodenum. Colonoscopy: 02/07/[address] Levin Diverticulosis, 6 mm polyp in the sigmoid colon. Past Med Surg Social Fam HX - Past Medical History Medical history: coronary artery disease, CVA, hyperlipidemia, hypertension Additional medical history: Parkinson's Disease Psychiatric history: depression - Past Surgical History Surgical History: cholecystectomy Additional surgical history: Laparoscopic - Social History Smoking Status: Never smoker Smokeless Tobacco Status: No Alcohol use: none Drug use: none - Family History Mother Hx Family Cardiac Disorders: Yes Father Hx Family Cardiac Disorders: Yes Review of Systems: GI: as per [facility] GENERAL: denies fever, has some chills EYES: denies yellow discoloration ENT: denies pain with swallowing or difficulty swallowing CARDIO: denies chest pain, palpitations RESP: Shortness of breath with exertion : denies change in color of urine NEURO: weakness HEME: Denies any bruising MS: denies joint pain, joint swelling or back pain. DERM: denies rash or itching PSYCH: Denies history of anxiety or depression - Constitutional Vitals: Temp Pulse Resp BP Pulse Ox 98.1 F 96 15 177/95 96 10/02/18 10:14 10/02/18 10:14 10/02/18 10:14 10/02/18 10:14 10/02/18 10:39 Exam: CONSTITUTIONAL:alert, no acute distress.HEAD:normocephalic, bruising noted to right eye and right side of neck.EYES:no jaundice.NECK:no obvious swelling.HEART:regular rate and rhythm, no murmurs.LUNGS:bilateral poor air entry.ABDOMEN:non distended, soft, non tender, no masses palpable, no organomegaly.RECTAL EXAM:Deferred.EXTREMITIES:no clubbing, cyanosis or edema, bruising noted to bilateral upper and lower extremeties.SKIN:no stigmata of chronic liver disease, pallor noted.NEUROLOGIC:no obvious focal defect. Results - Labs CBC & Chem 7: 10/02/18 07:47 10/02/18 07:47 Labs: Last Result 10/02/18 07:47 Calcium 9.5 Entire Visit 10/02/18 07:47 Hgb 12.4 Hct 39.2 - ABG ABG results: PT/INR, D-dimer PT 11.9 Seconds (9.4-12.1) 10/01/18 15:21 - Impressions Impressions Abdomen/Pelvis CT 10/01/18 15:06 IMPRESSION: 4 mm renal calculus at the right ureteropelvic junction without hydronephrosis. This calculus was previously seen at the lower pole of the right kidney. Moderate stool burden in the rectosigmoid colon with a 3 cm region of collapsed rectum. While this may be secondary to normal peristalsis, consider correlation with colonoscopy to rule out a focally constricting lesion. D/ / Baldomero Hernández / Baldomero Hernández Interpreting Provider: Baldomero Hernández Consult Discharge Plan - Plan Referrals: Alessandro Vines DO [Primary Care Provider] - <Dragan Campuzano - Last Filed: 10/02/18 14:45> Date of Encounter: 10/02/18 Time of Encounter: 14:00 - Time Spent With Patient Total time spent is greater than 50% in coordination of care (as documented) at patient's floor/unit and/or counseling patient: GI History of Present Illness - Data of Consult Requesting Physician: Fabio Jennings - Consult Narrative History of present illness: Ms. Hensley is a 78 year old female - Constitutional Vitals: Temp Pulse Resp BP Pulse Ox 98.1 F 96 15 177/95 96 10/02/18 10:14 10/02/18 10:14 10/02/18 10:14 10/02/18 10:14 10/02/18 10:39 Results - Labs CBC & Chem 7: 10/02/18 07:47 10/02/18 07:47 Labs: Last Result 10/02/18 07:47 Calcium 9.5 Entire Visit 10/02/18 07:47 Hgb 12.4 Hct 39.2 - ABG ABG results: PT/INR, D-dimer PT 11.9 Seconds (9.4-12.1) 10/01/18 15:21 - Impressions Impressions Abdomen/Pelvis CT 10/01/18 15:06 IMPRESSION: 4 mm renal calculus at the right ureteropelvic junction without hydronephrosis. This calculus was previously seen at the lower pole of the right kidney. Moderate stool burden in the rectosigmoid colon with a 3 cm region of collapsed rectum. While this may be secondary to normal peristalsis, consider correlation with colonoscopy to rule out a focally constricting lesion. D/ / Baldomero Hernández / Baldomero Hernández Interpreting Provider: Baldomero Hernández - Attending Attestation I have personally performed a face to face evaluation on this patient. I have reviewed and agree with the care plan. History and Exam by me shows: Patient seen. Denies abdominal pain. Does has chronic nausea and vomiting. On examination: Patient alert and awake with speech dysarthric because of previous stroke. Abdomen is soft. Assessment: Patient with nausea and vomiting and abdominal imaging the rectum. Recommendation: EGD and sigmoidoscopy
[2018-10-02] MEDS: 0.9 % Sodium Chloride w KCl 40 MEQ/1,000 ML MLS IVC SCH (14:36)
--- NOTE | 2018-10-02 16:02 | Urology - Consult Note ---
<Rubia Shaffer N - Last Filed: 10/02/18 15:59> Date of Encounter: 10/02/18 Time of Encounter: 08:00 - Assessment and Plan (1) Kidney stone on right side Current Visit: Yes Status: Acute Assessment and plan: Patient is a 78-year-old female who presents with a 4 mm right renal stone at the ureteropelvic junction. There is no hydronephrosis, and patient appears to be relatively asymptomatic. We discussed the stone may be acting as a ball- valve affect intermittently causing symptoms. We will continue with conse rvative measures, and reevaluate patient in the morning. If patient develops pain, we will consider placing a ureteral stent tomorrow. (2) UTI (urinary tract infection) Current Visit: Yes Status: Acute Assessment and plan: Patient is a 78-year-old female who presents with a urinary tract infection. Vi shiraz signs are stable and afebrile. Urine culture is pending. White blood cell count and renal function is reassuring. Patient is receiving IV Rocephin. Qualifiers: Urinary tract infection type: site unspecified Hematuria presence: with hematuria Qualified Code(s): N39.0 - Urinary tract infection, site not specifi ed; R31.9 - Hematuria, unspecified Urology CN:HPI Consult date: 10/02/18 Reason for consult Urology: Other (renal stone) Requesting physician: Jerald Quevedo History of present illness: Patient is a 78-year-old female who presents with a 4 mm right renal stone visualized on CT at the right ureteropelvic junction. Patient was transferred from extended care facility for intractable nausea and vomiting. Patient has a history of CVA, Parkinson's disease, and unfortunately, she is a poor historian and unable to recall much of her past medical history. Patient reports no prior history of renal stones, and she is unsure if she has any family history of renal stones. Patient denies any fever, chills, flank pain, gross hematuria. Past Med Surg Social Fam HX - Past Medical History Medical history: coronary artery disease, CVA, hyperlipidemia, hypertension Additional medical history: Parkinson's Disease Psychiatric history: depression - Past Surgical History Surgical History: cholecystectomy Additional surgical history: Laparoscopic - Social History Smoking Status: Never smoker Smokeless Tobacco Status: No Alcohol use: none Drug use: none - Family History Mother Hx Family Cardiac Disorders: Yes Father Hx Family Cardiac Disorders: Yes Medications and Allergies Amlodipine Besylate 10 mg PO DAILY 04/06/17 [History] Atorvastatin [Lipitor] 40 mg PO HS 04/06/17 [History] Carbidopa/Levodopa ER 50/200 [Sinemet ER 50-200 Tab] 1 tab PO BID 04/06/17 [H istory] Sertraline [Zoloft] 150 mg PO DAILY 04/06/17 [History] Bethanechol [Urecholine] 25 mg PO BID 04/18/18 [History] Gabapentin [Neurontin] 300 mg PO BID 04/18/18 [History] Sucralfate [Carafate] 1 gm PO DAILY 06/22/18 [History] Aspirin 81 mg PO DAILY 06/24/18 [History] Buspirone HCl [Buspar] 5 mg PO BID 06/24/18 [History] Docusate Sodium [Dok] 100 mg PO BID PRN 06/24/18 [History] Lansoprazole [Prevacid] 30 mg PO DAILY PRN 06/24/18 [History] Rivaroxaban [Xarelto] 15 mg PO BID #60 tablet 06/26/18 [Rx] Ondansetron [Zofran ODT] 8 mg SL Q4HR 10/01/18 [History] Oxybutynin [Ditropan] 5 mg PO BID 10/01/18 [History] Promethazine [Phenergan] 25 mg RC Q6H 10/01/18 [History] Tramadol HCl [Ultram] 50 mg PO QID PRN 10/01/18 [History] Allergy/AdvReac Type Severity Reaction Status Date / Time Sulfa (Sulfonamide Allergy Hives Verified 06/21/18 17:07 Antibiotics) Review of Systems ROS unobtainable: due to mental status - EENT Nose, mouth and throat: no headache(s) - Cardiovascular no diaphoresis Exam Initial Vital Signs Temp Pulse Resp BP Pulse Ox 98.3 F 72 16 148/99 97 10/01/18 15:08 10/01/18 15:08 10/01/18 15:08 10/01/18 15:08 10/01/18 15:08 - General physical appearance Present: no distress, no pain - Eyes Present: PERRL, normal ocular movement - ENT Present: no congestion, decreased hearing - Neck Present: no masses, trachea midline, no lymphadenopathy - Respiratory Present: normal respiratory effort - Cardiovascular Cardiovascular exam IM: RRR - Abdomen Abdomen: Present: soft, non tender. Absent: distended - Genitourinary Present: other (No CVAT) - Integumentary Present: no rash, no abnormal pigmentation - Neurologic Present: disoriented, confused - Musculoskeletal Present: other (Normal posture) Urology Results - Labs 10/02/18 07:47 10/02/18 07:47 Abnormal lab results RBC 5.15 M/mcL (3.82-4.97) H 10/01/18 15:21 MCV 82.7 fL (83.0-100.0) L 10/01/18 15:21 MCH 26.6 pg (28.0-33.3) L 10/02/18 07:47 Potassium 3.2 mEq/L (3.5-5.1) L 10/02/18 07:47 Chloride 93 mEq/L (98-107) L 10/01/18 15:21 Carbon Dioxide 31 mEq/L (23-29) H 10/01/18 15:21 Glucose 112 mg/dL (70-105) H 10/02/18 07:47 Calcium 10.9 mg/dL (8.6-10.3) H 10/01/18 15:21 ALT 3 Units/L (7-52) L 10/01/18 15:21 Urine Clarity Cloudy (Clear) A 10/01/18 15:43 Urine Ketones 15 mg/dL (Negative) H 10/01/18 15:43 Urine Blood Large (Negative) H 10/01/18 15:43 Urine Bilirubin Moderate (Negative) H 10/01/18 15:43 Ur Leukocyte Esterase Moderate (Negative) H 10/01/18 15:43 Urine Microscopic RBC 3-5 per hpf (0-3) H 10/01/18 15:43 Urine Microscopic WBC 5-15 per hpf (0-3) H 10/01/18 15:43 Ur Squamous Epith Cells Moderate per lpf (None-Few) H 10/01/18 15:43 Urine Bacteria Many per hpf (None-Few) H 10/01/18 15:43 Ur Culture Indicated? YES (NO) A 10/01/18 15:43 Diabetes panel 10/02/18 Range/Units 07:47 Sodium 141 (136-145) mEq/L Potassium 3.2 L (3.5-5.1) mEq/L Chloride 102 (98-107) mEq/L Carbon Dioxide 28 (23-29) mEq/L BUN 16 (8-23) mg/dL Creatinine 0.82 (0.60-1.20) mg/dL Glucose 112 H (70-105) mg/dL Calcium 9.5 (8.6-10.3) mg/dL Calcium panel 10/02/18 Range/Units 07:47 Calcium 9.5 (8.6-10.3) mg/dL Pituitary panel 10/02/18 Range/Units 07:47 Sodium 141 (136-145) mEq/L Potassium 3.2 L (3.5-5.1) mEq/L Chloride 102 (98-107) mEq/L Carbon Dioxide 28 (23-29) mEq/L BUN 16 (8-23) mg/dL Creatinine 0.82 (0.60-1.20) mg/dL Glucose 112 H (70-105) mg/dL Calcium 9.5 (8.6-10.3) mg/dL Adrenal panel 10/02/18 Range/Units 07:47 Sodium 141 (136-145) mEq/L Potassium 3.2 L (3.5-5.1) mEq/L Chloride 102 (98-107) mEq/L Carbon Dioxide 28 (23-29) mEq/L BUN 16 (8-23) mg/dL Creatinine 0.82 (0.60-1.20) mg/dL Glucose 112 H (70-105) mg/dL Calcium 9.5 (8.6-10.3) mg/dL All other labs normal. - Imaging CT scan - abdomen: report reviewed, image reviewed CT scan - pelvis: report reviewed, image reviewed Consult Discharge Plan - Plan Referrals: Alessandro Vines DO [Primary Care Provider] - <Holden Quevedo - Last Filed: 10/02/18 19:27> Date of Encounter: 10/02/18 - Assessment and Plan (1) Kidney stone on right side Current Visit: Yes Status: Acute Assessment and plan: I personally reviewed the CT scan. Based on the images I am not convinced that the stone is obstructing and causing the patient's intractable nausea and vomiting. At the same time it does not appear that a another etiology has been discovered. She states that she still feels bad this afternoon and has not im proved much compared to admission. Will reevaluate the patient in the morning but I will tentatively place her on the operating room schedule for a ureteral stent placement. Exam Initial Vital Signs Temp Pulse Resp BP Pulse Ox 98.3 F 72 16 148/99 97 10/01/18 15:08 10/01/18 15:08 10/01/18 15:08 10/01/18 15:08 10/01/18 15:08 Urology Results - Labs 10/02/18 07:47 10/02/18 07:47 Abnormal lab results RBC 5.15 M/mcL (3.82-4.97) H 10/01/18 15:21 MCV 82.7 fL (83.0-100.0) L 10/01/18 15:21 MCH 26.6 pg (28.0-33.3) L 10/02/18 07:47 Potassium 3.2 mEq/L (3.5-5.1) L 10/02/18 07:47 Chloride 93 mEq/L (98-107) L 10/01/18 15:21 Carbon Dioxide 31 mEq/L (23-29) H 10/01/18 15:21 Glucose 112 mg/dL (70-105) H 10/02/18 07:47 Calcium 10.9 mg/dL (8.6-10.3) H 10/01/18 15:21 ALT 3 Units/L (7-52) L 10/01/18 15:21 Urine Clarity Cloudy (Clear) A 10/01/18 15:43 Urine Ketones 15 mg/dL (Negative) H 10/01/18 15:43 Urine Blood Large (Negative) H 10/01/18 15:43 Urine Bilirubin Moderate (Negative) H 10/01/18 15:43 Ur Leukocyte Esterase Moderate (Negative) H 10/01/18 15:43 Urine Microscopic RBC 3-5 per hpf (0-3) H 10/01/18 15:43 Urine Microscopic WBC 5-15 per hpf (0-3) H 10/01/18 15:43 Ur Squamous Epith Cells Moderate per lpf (None-Few) H 10/01/18 15:43 Urine Bacteria Many per hpf (None-Few) H 10/01/18 15:43 Ur Culture Indicated? YES (NO) A 10/01/18 15:43 Diabetes panel 10/02/18 Range/Units 07:47 Sodium 141 (136-145) mEq/L Potassium 3.2 L (3.5-5.1) mEq/L Chloride 102 (98-107) mEq/L Carbon Dioxide 28 (23-29) mEq/L BUN 16 (8-23) mg/dL Creatinine 0.82 (0.60-1.20) mg/dL Glucose 112 H (70-105) mg/dL Calcium 9.5 (8.6-10.3) mg/dL Calcium panel 10/02/18 Range/Units 07:47 Calcium 9.5 (8.6-10.3) mg/dL Pituitary panel 10/02/18 Range/Units 07:47 Sodium 141 (136-145) mEq/L Potassium 3.2 L (3.5-5.1) mEq/L Chloride 102 (98-107) mEq/L Carbon Dioxide 28 (23-29) mEq/L BUN 16 (8-23) mg/dL Creatinine 0.82 (0.60-1.20) mg/dL Glucose 112 H (70-105) mg/dL Calcium 9.5 (8.6-10.3) mg/dL Adrenal panel 10/02/18 Range/Units 07:47 Sodium 141 (136-145) mEq/L Potassium 3.2 L (3.5-5.1) mEq/L Chloride 102 (98-107) mEq/L Carbon Dioxide 28 (23-29) mEq/L BUN 16 (8-23) mg/dL Creatinine 0.82 (0.60-1.20) mg/dL Glucose 112 H (70-105) mg/dL Calcium 9.5 (8.6-10.3) mg/dL All other labs normal.
[2018-10-02] MEDS ORDERED: SODIUM CHLORIDE/NAHCO3/KCL/PEG 4,000 ML SOLN.RECON PO ONE (17:00)
[2018-10-02] MEDS ORDERED: *HR* Enoxaparin 60 MG/0.6 ML SYRINGE SQ ONE (17:33)
--- NOTE | 2018-10-02 17:37 | Internal Med Progress Note ---
Hospitalist Progress Note - Encounter Date of Encounter: 10/02/18 Time of Encounter: 10:00 - Subjective Interval History: No major events overnight. Patient was seen this a.m. sHe denied fever, chills or night sweats. sHe had nausea, and vomiting this AM. Patient denied chest pain, shortness of breath or palpitation. - Exam Vitals: Temp Pulse Resp BP Pulse Ox 98.7 F 93 16 137/83 93 10/02/18 15:15 10/02/18 15:15 10/02/18 15:15 10/02/18 15:15 10/02/18 15:15 Exam: General: Patient is alert, oriented 3. Mild distress Head: Atraumatic, normal inspection, normocephalic. Eye: EOMI, PERRLA, no scleral icterus noted. ENT: Mucous membranes moist. No odontogenic infection noted. Neck: Normal inspection, no meningismus. Respiratory: No respiratory distress, rhonchi, or wheezes noted. Cardiovascular: Regular rate and regular rhythm, S1 and S2 audible. No murmurs, rubs, or gallops. GI: Soft, nondistended, normal bowel sounds. Extremities:No joint swelling, pedal edema, or tenderness noted. Neurological: Alert, oriented 3, left lower extremity weakness. Dysartheric speech Psychiatric: normal affect, normal mood. Skin: Dry, intact, warm. Normal color. No rashes. - Assessment and Plan (1) UTI (urinary tract infection) Current Visit: Yes Status: Acute (2) Intractable nausea and vomiting Current Visit: Yes Status: Acute (3) Parkinsons disease Current Visit: Yes Status: Chronic (4) Depression Current Visit: No Status: Acute (5) Hypertension Current Visit: No Status: Acute (6) Failure to thrive in adult Current Visit: Yes Status: Acute (7) Hypercalcemia Current Visit: Yes Status: Acute (8) Kidney stone on right side Current Visit: Yes Status: Acute (9) History of DVT (deep vein thrombosis) Current Visit: Yes Status: Acute - Summary of Assessment and Plan Summary of Assessment and Plan: Ms. Hensley is a 78 year old female with history of HTN, PFO with closure and IVC filter, CVA with residual weakness, Parkinsons disease, DVT on Xarelto, presented from SNF for intractable N/V and weight loss. Intractable nausea and vomiting: - Likely related to infection given her + UA. She also has nephrolithiasis on CT abdomen for which urology is consulted. malignancy can't be excluded given her thyroid nodule on CT neck as per previous notes ( was supposed to see big data analytics lead) - GI is also consulted, EGD on 05/02 was normal and MRI brain was negative. Tomorrow for EGD. Had cholecystectomy removed without improvement in her symptoms. - BC and UCx are pending. - continue with Rocephine. - Continue with Zofran every 4 hours for nausea. Nephrolithiasis: -CT abdomen revealed 4 mm renal calculus at the right ureteropelvic junction without hydronephrosis - Patient was complaining about abdominal pain however she is not complaining today. - Urology is consulted, will proceed with conservative management as the patient is asymptomatic. Possible rectal mass: -Moderate stool burden in the rectosigmoid colon with a 3 cm region of collapsed rectum. - Tomorrow for flex sigmoidoscopy as she won't tolerate prepration for colonoscopy. Hypokalemia: - 2/2 vomiting, replacement given - check BMp tomorrow. History of Parkinson disease: - Continue home medication. History of DVT: - Seems provoked from reviewing previous records, s/p cholecystectomy. - Xarelto is on hold due to planned procedure. will give her theraputic lovenox for tomorrow. HTN: - On norvasc, continue dvt ppx: on lovenox. - Time Spent with Patient Total time spent is greater than 50% in coordination of care (as documented) at patient's floor/unit and/or counseling patient: Internal Medicine: Result - Labs CBC & Chem 7: 10/02/18 07:47 10/02/18 07:47 Labs: Short CBC 10/02/18 Range/Units 07:47 WBC 8.9 (4.3-11.1) K/mcL Hgb 12.4 (11.5-15.4) g/dL Hct 39.2 (35.3-44.9) % Plt Count 202 (140-400) K/mcL Neutrophils # 7.0 (1.6-8.9) K/mcL BMP 10/02/18 07:47 Sodium 141 Potassium 3.2 L Chloride 102 Carbon Dioxide 28 BUN 16 Creatinine 0.82 Glucose 112 H Calcium 9.5 - ABG Interpretation ABG results: PT/INR, D-dimer PT 11.9 Seconds (9.4-12.1) 10/01/18 15:21 Consult Discharge Plan - Plan Referrals: Alessandro Vines DO [Primary Care Provider] - (1) UTI (urinary tract infection) Qualifiers: Urinary tract infection type: site unspecified Hematuria presence: with hematuria Qualified Code(s): N39.0 - Urinary tract infection, site not specified; R31.9 - Hematuria, unspecified (2) Intractable nausea and vomiting Qualifiers: Vomiting type: unspecified Qualified Code(s): R11.2 - Nausea with vomiting, unspecified (4) Depression Qualifiers: Depression Type: major depressive disorder Major depression recurrence: unspecified whether recurrent Major depression episode severity: unspecified Qualified Code(s): F32.9 - Major depressive disorder, single episode, unspecified (5) Hypertension Qualifiers: Hypertension type: essential hypertension Qualified Code(s): I10 - Essential (primary) hypertension
[2018-10-02] MEDS: *HR* Labetalol 20 MG/4 ML SYRINGE IVP PRN (22:24)
[2018-10-03] MEDS: Ondansetron ODT 4 MG TAB.RAPDIS SL SCH ×3 (00:08→09:58)
[2018-10-03] MEDS: 0.9 % Sodium Chloride w KCl 40 MEQ/1,000 ML MLS IVC SCH ×2 (00:46→11:10)
[2018-10-03] MEDS: Ondansetron 4 MG/2 ML VIAL IVP PRN (06:12)
[2018-10-03 07:37] LABS: Hematocrit 40.5 % (35.3-44.9); Hemoglobin 13.1 g/dL (11.5-15.4); Mean Corpuscular HGB Conc 32.3 g/dL (31.6-35.5); Mean Corpuscular Hemoglobin 26.4 pg (28.0-33.3); Mean Corpuscular Volume 81.5 fL (83.0-100.0); Mean Platelet Volume 10.4 fL (9.4-12.4); Platelet Count 229 K/mcL (140-400); Red Blood Count 4.97 M/mcL (3.82-4.97); Red Cell Distribution Width 14.4 % (11.5-14.5); White Blood Count 10.3 K/mcL (4.3-11.1)
[2018-10-03 07:56] LABS: BUN/Creatinine Ratio 13 (6-26); Blood Urea Nitrogen 10 mg/dL (8-23); Calcium 9.5 mg/dL (8.6-10.3); Carbon Dioxide 24 mEq/L (23-29); Chloride 100 mEq/L (98-107); Glucose 159 mg/dL (70-105); Osmolality,Calculated 294 (280-300); Potassium 3.6 mEq/L (3.5-5.1); Sodium 141 mEq/L (136-145); eGFR For African Americans > 60 (> 60); eGFR For Non-African Americans > 60 (> 60)
--- NOTE | 2018-10-03 09:03 | Urology Progress Note ---
<Rubia Shaffer N - Last Filed: 10/03/18 09:00> Date of Encounter: 10/03/18 Time of Encounter: 08:30 - Assessment and Plan (1) Kidney stone on right side Current Visit: Yes Status: Acute Assessment and plan: Patient is a 78-year-old female who presents with a 4 mm right renal pelvis stone. Patient is not experiencing any pain related to the stone, and there was no hydronephrosis identified on CT. We would like to treat Ms. Hensley conservatively given her comorbidities and DNR status, however, if patient fails to improve, consider ureteral stent placement. Renal function remains normal and reassuring. Patient is planning endoscopy later this afternoon. Dr. Quevedo will be in to reevaluate patient. (2) UTI (urinary tract infection) Current Visit: Yes Status: Acute Assessment and plan: Patient is a 78-year-old female who presents with a urinary tract infection. Preliminary urine culture is positive for gram-negative rods. Vital signs are stable and afebrile. White blood cell count and renal function are reassuring. Patient is receiving IV Rocephin. Patient does not appear to be improving clini [place]il[place]. Patient may require antibiotic change pending final urine culture results. Qualifiers: Urinary tract infection type: site unspecified Hematuria presence: with hematuria Qualified Code(s): N39.0 - Urinary tract infection, site not specified; R31.9 - Hematuria, unspecified Progress Note Narrative: Patient seen and examined sitting upright in bed in no apparent distress. Patient has empty emesis bag at bedside, and she reports feeling nauseated. Patient states she is voiding without difficulty, and she denies any fever, chills or flank pain. Objective Initial Vital Signs Temp Pulse Resp BP Pulse Ox 98.3 F 72 16 148/99 97 10/01/18 15:08 10/01/18 15:08 10/01/18 15:08 10/01/18 15:08 10/01/18 15:08 - General physical appearance Present: no distress, no pain - Respiratory Present: normal expansion, normal respiratory effort - Abdomen Present: soft, non tender. Absent: distended - Integumentary Present: no rash, no abnormal pigmentation - Musculoskeletal Present: normal posture - Psychiatric Present: oriented to time, oriented to person, oriented to place, speech is normal, memory intact - Labs 10/03/18 07:15 10/03/18 07:15 Diabetes panel 10/02/18 10/03/18 Range/Units 07:47 07:15 Sodium 141 141 (136-145) mEq/L Potassium 3.2 L 3.6 (3.5-5.1) mEq/L Chloride 102 100 (98-107) mEq/L Carbon Dioxide 24 (23-29) mEq/L BUN 10 (8-23) mg/dL Creatinine 0.78 (0.60-1.20) mg/dL Glucose 159 H (70-105) mg/dL Calcium 9.5 (8.6-10.3) mg/dL Calcium panel 10/03/18 Range/Units 07:15 Calcium 9.5 (8.6-10.3) mg/dL Pituitary panel 10/02/18 10/03/18 Range/Units 07:47 07:15 Sodium 141 141 (136-145) mEq/L Potassium 3.2 L 3.6 (3.5-5.1) mEq/L Chloride 102 100 (98-107) mEq/L Carbon Dioxide 24 (23-29) mEq/L BUN 10 (8-23) mg/dL Creatinine 0.78 (0.60-1.20) mg/dL Glucose 159 H (70-105) mg/dL Calcium 9.5 (8.6-10.3) mg/dL Adrenal panel 10/02/18 10/03/18 Range/Units 07:47 07:15 Sodium 141 141 (136-145) mEq/L Potassium 3.2 L 3.6 (3.5-5.1) mEq/L Chloride 102 100 (98-107) mEq/L Carbon Dioxide 24 (23-29) mEq/L BUN 10 (8-23) mg/dL Creatinine 0.78 (0.60-1.20) mg/dL Glucose 159 H (70-105) mg/dL Calcium 9.5 (8.6-10.3) mg/dL Consult Discharge Plan - Plan Referrals: Alessandro Vines DO [Primary Care Provider] - <Holden Quevedo - Last Filed: 10/03/18 19:30> Date of Encounter: 10/03/18 - Assessment and Plan (1) Kidney stone on right side Current Visit: Yes Status: Acute Assessment and plan: pt seen and examined. agree with PA assessment and plan. discussed with hospitalist and nausea meds are being changed. we diiscussed that I am reluctant to place a stent bc stone doesnt appear obstructing. At the same time, the stent could be palliative if the stone is causing the nausea. if no improvement, will proceed. pts family will be present tomorrow. will discuss these options as well with them. Objective Initial Vital Signs Temp Pulse Resp BP Pulse Ox 98.3 F 72 16 148/99 97 10/01/18 15:08 10/01/18 15:08 10/01/18 15:08 10/01/18 15:08 10/01/18 15:08 - Labs 10/03/18 07:15 10/03/18 07:15 Diabetes panel 10/03/18 Range/Units 07:15 Sodium 141 (136-145) mEq/L Potassium 3.6 (3.5-5.1) mEq/L Chloride 100 (98-107) mEq/L Carbon Dioxide 24 (23-29) mEq/L BUN 10 (8-23) mg/dL Creatinine 0.78 (0.60-1.20) mg/dL Glucose 159 H (70-105) mg/dL Calcium 9.5 (8.6-10.3) mg/dL Calcium panel 10/03/18 Range/Units 07:15 Calcium 9.5 (8.6-10.3) mg/dL Pituitary panel 10/03/18 Range/Units 07:15 Sodium 141 (136-145) mEq/L Potassium 3.6 (3.5-5.1) mEq/L Chloride 100 (98-107) mEq/L Carbon Dioxide 24 (23-29) mEq/L BUN 10 (8-23) mg/dL Creatinine 0.78 (0.60-1.20) mg/dL Glucose 159 H (70-105) mg/dL Calcium 9.5 (8.6-10.3) mg/dL Adrenal panel 10/03/18 Range/Units 07:15 Sodium 141 (136-145) mEq/L Potassium 3.6 (3.5-5.1) mEq/L Chloride 100 (98-107) mEq/L Carbon Dioxide 24 (23-29) mEq/L BUN 10 (8-23) mg/dL Creatinine 0.78 (0.60-1.20) mg/dL Glucose 159 H (70-105) mg/dL Calcium 9.5 (8.6-10.3) mg/dL
[2018-10-03] MEDS ORDERED: *HR* LORazepam 2 MG/ML VIAL IVP PRN (09:08)
[2018-10-03] MEDS: Carbidopa/Levodopa ER 50/200 TABLET PO SCH ×3 (09:58→18:38)
--- NOTE | 2018-10-03 10:50 | Anesthesia Evaluation PreOp ---
Date of Encounter: 10/03/18 Time of Encounter: 13:56 - Past History Planned Operation: EGD flex sig Cardiac History: HTN, Hyperlipidemia, Other (PFO, DVT now on xarelto) Pulmonary History: Denies Any Significant HX [employer] WORKER History: CVA ( x3 with residual deficits of left-sided weakness and dysarthria), Other (Parkinson's disease, depression,) Other Medical History: GERD, Other (intractable nausea and emesis) Anesthesia History: No Prior Anesthetic Complications, Past Anesthesia (alpa) : No Alcohol Use: none Drug use: none Medications and Allergies Amlodipine Besylate 10 mg PO DAILY 04/06/17 [History] Atorvastatin [Lipitor] 40 mg PO HS 04/06/17 [History] Carbidopa/Levodopa ER 50/200 [Sinemet ER 50-200 Tab] 1 tab PO BID 04/06/17 [History] Sertraline [Zoloft] 100 mg PO DAILY 04/06/17 [History] Bethanechol [Urecholine] 25 mg PO BID 04/18/18 [History] Gabapentin [Neurontin] 300 mg PO BID 04/18/18 [History] Buspirone HCl [Buspar] 5 mg PO BID 06/24/18 [History] Lansoprazole [Prevacid] 30 mg PO DAILY 06/24/18 [History] Rivaroxaban [Xarelto] 15 mg PO BID #60 tablet 06/26/18 [Rx] Ondansetron [Zofran ODT] 8 mg SL Q4HR 10/01/18 [History] Oxybutynin [Ditropan] 5 mg PO BID 10/01/18 [History] Promethazine [Phenergan] 25 mg RC Q6H 10/01/18 [History] Tramadol HCl [Ultram] 50 mg PO Q4H PRN 10/01/18 [History] Sertraline [Zoloft] 50 mg PO DAILY 10/02/18 [History] Sucralfate [Carafate] 1 gm PO DAILY 10/02/18 [History] 3 Allergy/AdvReac Type Severity Reaction Status Date / Time Sulfa (Sulfonamide Allergy Hives Verified 10/02/18 23:40 Antibiotics) - Meds/Allergy Pre-op Review Medications Reviewed: Yes Allergies Reviewed: Yes Beta Blockers on Current Med List: No Anesthesia Results - Labs 10/03/18 07:15 10/03/18 07:15 - Imaging EKG: report reviewed (SINUS RHYTHM WITH SINUS ARRHYTHMIA RIGHT BUNDLE BRANCH BLOCK) Anesthesia Exam Vital Signs/O2 Sat/Glucose, Most Recent Temp Pulse Resp BP Pulse Ox 98.2 F 104 14 145/93 97 10/03/18 06:46 10/03/18 06:46 10/03/18 06:46 10/03/18 06:46 10/03/18 06:46 Blood Glucose* 148 - HEENT Pupil (Motor): Pupils equal Mallampati: II Teeth: Edentulous - [employer] LOC: Oriented - Cardiac Rhythm: Regular Murmur: None - Pulmonary Breath Sounds: bilateral Clear Respiratory Effort: Symmetrical Anesthesia Assess/Plan ASA Score: 4 Level of consciousness: Cooperative, Oriented Anesthetic Plan: MAC Monitoring Plan: Standard Monitors Recovery Plan: PACU
[2018-10-03] MEDS: amLODIPine 5 MG TABLET PO SCH (11:01)
[2018-10-03] MEDS: cefTRIAXone 1,000 MG in Water for inj. (sterile) 10 ML IVP SCH (11:02)
[2018-10-03] MEDS ORDERED: *HR* Propofol 200 MG/20 ML VIAL IVP ONE (13:04)
[2018-10-03] MEDS ORDERED: Lidocaine -MPF 2% 2 ML VIAL ONE (13:04)
--- NOTE | 2018-10-03 14:01 | Electrocardiograph Report ---
[facility] Test Date: 2018-10-01 Pat Name: Kristan Hensley Department: [id number] Room: 3A34 Gender: F Heavy Equipment Service Technician: : [id number] Requested By: Jerald Quevedo Order Number: [id number] Reading MD: Johnathon Hartman Measurements Intervals [place] Rate: 89 P: 65 ND: 141 QRS: 69 QRSD: 117 T: -65 QT: 414 QTc: 504 Interpretive Statements Sinus arrhythmia Incomplete right bundle branch block Electronically Signed On 10-03-2018 13:59:47 EDT by Johnathon Hartman
[2018-10-03] MEDS: 0.9 % Sodium Chloride 500 ML IVC SCH (14:04)
--- NOTE | 2018-10-03 15:15 | Anesthesia Evaluation Post Op ---
Date of Encounter: 10/03/18 Time of Encounter: 15:15 - Vital Signs Vital Signs: Vital Signs/O2 Sat/Glucose, Most Recent Temp Pulse Resp BP Pulse Ox 98.9 F 98 14 149/89 95 10/03/18 14:11 10/03/18 14:11 10/03/18 14:11 10/03/18 14:11 10/03/18 14:11 Blood Glucose* 110 - Lungs Lungs: Clear Ascult./Percussion - Airway Airway: Non-obstructed - Cardiovascular Regular Rate - Mental Status Mental Status: Alert & Oriented, Answers Appropriately - Pain Pain Scale: 0 - Nausea Vomiting Nausea Vomiting: Not Present - Hydration Hydration: Tolerates oral liquids - Discharge PostOp Status: Discharge Patient to home
--- NOTE | 2018-10-03 15:39 | Internal Med Progress Note ---
Hospitalist Progress Note - Encounter Date of Encounter: 10/03/18 Time of Encounter: 10:00 - Subjective Interval History: No major events overnight. Patient was seen this a.m. she was still complaining about nausea vomiting for the whole night. She denied any abdominal pain, chest pain or shortness of breath. - Exam Vitals: Temp Pulse Resp BP Pulse Ox 98.9 F 98 14 149/89 95 10/03/18 14:11 10/03/18 14:11 10/03/18 14:11 10/03/18 14:11 10/03/18 14:11 Exam: General: Patient is alert, oriented 3. Mild distress Head: Atraumatic, normal inspection, normocephalic. Eye: EOMI, PERRLA, no scleral icterus noted. ENT: Mucous membranes moist. No odontogenic infection noted. Neck: Normal inspection, no meningismus. Respiratory: No respiratory distress, rhonchi, or wheezes noted. Cardiovascular: Regular rate and regular rhythm, S1 and S2 audible. No murmurs, rubs, or gallops. GI: Soft, nondistended, normal bowel sounds. Extremities:No joint swelling, pedal edema, or tenderness noted. Neurological: Alert, oriented 3, left lower extremity weakness. Dysartheric speech Psychiatric: normal affect, normal mood. Skin: Dry, intact, warm. Normal color. No rashes. - Assessment and Plan (1) UTI (urinary tract infection) Current Visit: Yes Status: Acute (2) Intractable nausea and vomiting Current Visit: Yes Status: Acute (3) Parkinsons disease Current Visit: Yes Status: Chronic (4) Depression Current Visit: Yes Status: Chronic (5) Hypertension Current Visit: No Status: Acute (6) Failure to thrive in adult Current Visit: Yes Status: Acute (7) Hypercalcemia Current Visit: Yes Status: Acute (8) Kidney stone on right side Current Visit: Yes Status: Acute (9) History of DVT (deep vein thrombosis) Current Visit: Yes Status: Acute - Summary of Assessment and Plan Summary of Assessment and Plan: Ms. Hensley is a 78 year old female with history of HTN, PFO with closure and IVC filter, CVA with residual weakness, Parkinsons disease, DVT on Xarelto, presented from SNF for intractable N/V and weight loss. Intractable nausea and vomiting: - Likely related to infection given her + UA, UC with GNR. Also medication SE is suspected (sinemet) - She also has nephrolithiasis on CT abdomen for which urology is consulted. malignancy can't be excluded given her thyroid nodule on CT neck as per previous notes ( was supposed to see care advocate) - GI is also consulted, EGD on 05/02 was normal and MRI brain was negative. today EGD showed mildly severe esophagitis. Had cholecystectomy this year removed without improvement in her symptoms. Flex sigmoidoscopy without evidence of a mass. - Switch rocephine to zosyn given no clinical improvment awaiting final culture report. - will start here on ativan PRN for intractable nausea. - Without her on PPI twice a day and Carafate as per GI recommendation. - Discussed with pharmacy, will administer sentiment with diet only. Nephrolithiasis: -CT abdomen revealed 4 mm renal calculus at the right ureteropelvic junction without hydronephrosis - Patient was complaining about abdominal pain however she is not complaining today. - Urology is consulted, spoke with him over the phone, if symptom persists, tomorrow for stent placement although her nephrolithiasis is less likely to cause her symptoms.. Hypokalemia: Resolved - 2/2 vomiting, replacement given History of Parkinson disease: - Continue home medication. History of DVT: - Seems provoked from reviewing previous records, s/p cholecystectomy. - Xarelto is on hold due to planned procedure. will give her theraputic lovenox for tomorrow. HTN: - On norvasc, continue dvt ppx: on lovenox. Diet: NPO in an anticipation for urinary stent tomorrow. - Time Spent with Patient Total time spent is greater than 50% in coordination of care (as documented) at patient's floor/unit and/or counseling patient: Internal Medicine: Result - Labs CBC & Chem 7: 10/03/18 07:15 10/03/18 07:15 Labs: Short CBC 10/03/18 Range/Units 07:15 WBC 10.3 (4.3-11.1) K/mcL Hgb 13.1 (11.5-15.4) g/dL Hct 40.5 (35.3-44.9) % Plt Count 229 (140-400) K/mcL BMP 10/03/18 07:15 Sodium 141 Potassium 3.6 Chloride 100 Carbon Dioxide 24 BUN 10 Creatinine 0.78 Glucose 159 H Calcium 9.5 - ABG Interpretation ABG results: PT/INR, D-dimer PT 11.9 Seconds (9.4-12.1) 10/01/18 15:21 Consult Discharge Plan - Plan Referrals: Alessandro Vines DO [Primary Care Provider] - (1) UTI (urinary tract infection) Qualifiers: Urinary tract infection type: site unspecified Hematuria presence: with hematuria Qualified Code(s): N39.0 - Urinary tract infection, site not specified; R31.9 - Hematuria, unspecified (2) Intractable nausea and vomiting Qualifiers: Vomiting type: unspecified Qualified Code(s): R11.2 - Nausea with vomiting, unspecified (4) Depression Qualifiers: Depression Type: major depressive disorder Major depression recurrence: unspecified whether recurrent Major depression episode severity: unspecified Qualified Code(s): F32.9 - Major depressive disorder, single episode, unspecified (5) Hypertension Qualifiers: Hypertension type: essential hypertension Qualified Code(s): I10 - Essential (primary) hypertension
[2018-10-03] MEDS ORDERED: Piperacillin/Tazobactam 3.375 GM in 0.9 % Sodium Chloride Mini Bag 100 ML IVPB SCH (16:00)
[2018-10-03] MEDS ORDERED: *HR* Enoxaparin 60 MG/0.6 ML SYRINGE SQ ONE (18:00)
[2018-10-03] MEDS: Pantoprazole 40 MG VIAL IVP SCH (20:35)
[2018-10-03] MEDS: *HR* Promethazine 25 MG/ML VIAL IVP PRN (20:36)
[2018-10-04] MEDS ORDERED: Piperacillin/Tazobactam 3.375 GM in 0.9 % Sodium Chloride Mini Bag 100 ML IVPB SCH ×2 (02:00→08:00)
[2018-10-04] MEDS: *HR* Promethazine 25 MG/ML VIAL IVP PRN ×3 (03:25→19:15)
[2018-10-04 06:02] LABS: Hematocrit 41.9 % (35.3-44.9); Hemoglobin 13.6 g/dL (11.5-15.4); Mean Corpuscular HGB Conc 32.5 g/dL (31.6-35.5); Mean Corpuscular Hemoglobin 26.4 pg (28.0-33.3); Mean Corpuscular Volume 81.4 fL (83.0-100.0); Mean Platelet Volume 11.1 fL (9.4-12.4); Platelet Count 182 K/mcL (140-400); Red Blood Count 5.15 M/mcL (3.82-4.97); Red Cell Distribution Width 14.5 % (11.5-14.5); White Blood Count 8.9 K/mcL (4.3-11.1)
[2018-10-04 06:23] LABS: BUN/Creatinine Ratio 10 (6-26); Blood Urea Nitrogen 8 mg/dL (8-23); Calcium 9.7 mg/dL (8.6-10.3); Carbon Dioxide 26 mEq/L (23-29); Chloride 97 mEq/L (98-107); Glucose 104 mg/dL (70-105); Osmolality,Calculated 291 (280-300); Potassium 3.3 mEq/L (3.5-5.1); Sodium 141 mEq/L (136-145); eGFR For African Americans > 60 (> 60); eGFR For Non-African Americans > 60 (> 60)
[2018-10-04] MEDS: 0.9 % Sodium Chloride w KCl 40 MEQ/1,000 ML MLS IVC SCH ×3 (06:23→20:57)
[2018-10-04] MEDS: Pantoprazole 40 MG VIAL IVP SCH (06:25)
[2018-10-04] MEDS: 0.9 % Sodium Chloride 500 ML IVC SCH (08:59)
[2018-10-04] MEDS: Carbidopa/Levodopa ER 50/200 TABLET PO SCH ×2 (08:59→17:18)
[2018-10-04] MEDS: amLODIPine 5 MG TABLET PO SCH (08:59)
--- NOTE | 2018-10-04 09:39 | Urology Progress Note ---
<Rubia Shaffer N - Last Filed: 10/04/18 10:50> Date of Encounter: 10/04/18 Time of Encounter: 08:20 - Assessment and Plan (1) Kidney stone on right side Current Visit: Yes Status: Acute Assessment and plan: Patient is a 78-year-old female who presents with a 4 mm right renal stone. Patient continues with intractable nausea and vomiting, and she reports new onset of right flank pain. Patient underwent reassuring endoscopy. I called patient's emergency contact and medical power of claims attorney, granddaughter Maurice Torres, who wishes to proceed with ureteral stent placement. I discussed surgical risks and benefits, and I discussed patient's reassuring renal function as well as reassuring CT for non-obstructing stone. We also discussed positive urine culture. Coco is aware patient will require 2 procedures for definitive stone extraction. Coco is aware patient will require general anesthesia, and she is aware of the DNR/DNI CODE STATUS. Coco informed me that patient was on hospice care at one time. This conversation occurred on speaker phone in the presence of Ms. Hensley who verbally wishes to proceed with surgery, and does not wish to change her CODE STATUS from DNR. Patient's nurse was present during this conversation, and additionally signed surgical consent in witness. Patient will remain nothing by mouth. (2) UTI (urinary tract infection) Current Visit: Yes Status: Acute Assessment and plan: Patient is a 78-year-old female who presents with a urinary tract infection. Preliminary urine culture is positive for gram-negative rods. Vital signs are stable and afebrile. Patient is receiving IV Zosyn. Qualifiers: Urinary tract infection type: site unspecified Hematuria presence: with hematuria Qualified Code(s): N39.0 - Urinary tract infection, site not specified; R31.9 - Hematuria, unspecified Progress Note Narrative: Patient seen and examined lying in bed in no apparent distress. Patient admits to continued nausea and vomiting. Patient underwent endoscopy yesterday that appeared to be reassuring. Patient reports new onset of right flank pain. Patient denies any fever, chills, dysuria or gross hematuria. Objective Initial Vital Signs Temp Pulse Resp BP Pulse Ox 98.3 F 72 16 148/99 97 10/01/18 15:08 10/01/18 15:08 10/01/18 15:08 10/01/18 15:08 10/01/18 15:08 - General physical appearance Present: no distress, moderate pain - Respiratory Present: normal expansion, normal respiratory effort - Abdomen Present: soft, non tender. Absent: distended - Genitourinary Present: other (no CVAT) - Integumentary Present: no rash, no abnormal pigmentation - Musculoskeletal Present: normal posture - Psychiatric Present: oriented to person, oriented to place, memory intact. Absent: speech is normal - Labs 10/04/18 05:37 10/04/18 05:37 Diabetes panel 10/04/18 Range/Units 05:37 Sodium 141 (136-145) mEq/L Potassium 3.3 L (3.5-5.1) mEq/L Chloride 97 L (98-107) mEq/L Carbon Dioxide 26 (23-29) mEq/L BUN 8 (8-23) mg/dL Creatinine 0.77 (0.60-1.20) mg/dL Glucose 104 (70-105) mg/dL Calcium 9.7 (8.6-10.3) mg/dL Calcium panel 10/04/18 Range/Units 05:37 Calcium 9.7 (8.6-10.3) mg/dL Pituitary panel 10/04/18 Range/Units 05:37 Sodium 141 (136-145) mEq/L Potassium 3.3 L (3.5-5.1) mEq/L Chloride 97 L (98-107) mEq/L Carbon Dioxide 26 (23-29) mEq/L BUN 8 (8-23) mg/dL Creatinine 0.77 (0.60-1.20) mg/dL Glucose 104 (70-105) mg/dL Calcium 9.7 (8.6-10.3) mg/dL Adrenal panel 10/04/18 Range/Units 05:37 Sodium 141 (136-145) mEq/L Potassium 3.3 L (3.5-5.1) mEq/L Chloride 97 L (98-107) mEq/L Carbon Dioxide 26 (23-29) mEq/L BUN 8 (8-23) mg/dL Creatinine 0.77 (0.60-1.20) mg/dL Glucose 104 (70-105) mg/dL Calcium 9.7 (8.6-10.3) mg/dL Consult Discharge Plan - Plan Referrals: Alessandro Vines DO [Primary Care Provider] - Holden Quevedo MD [Partnered Physician] - <Holden Quevedo - Last Filed: 10/05/18 07:50> Date of Encounter: 10/05/18 - Assessment and Plan (1) Kidney stone on right side Current Visit: Yes Status: Acute Assessment and plan: Agree with physician pet care assistant's assessment and plan. 2 family members present at bedside prior to surgery. We discussed the indication for the ureteral stent. I also discussed that I feel it is the proper intervention at this time but there is a significant chance that the stent may not improve her chronic nausea and symptoms. It is possible she is experiencing failure to thrive if no other etiology for her issues can be identified. Objective Initial Vital Signs Temp Pulse Resp BP Pulse Ox 98.3 F 72 16 148/99 97 10/01/18 15:08 10/01/18 15:08 10/01/18 15:08 10/01/18 15:08 10/01/18 15:08 - Labs 10/05/18 06:09 10/05/18 06:09 Diabetes panel 10/05/18 Range/Units 06:09 Sodium 138 (136-145) mEq/L Potassium 3.7 (3.5-5.1) mEq/L Chloride 101 (98-107) mEq/L Carbon Dioxide 27 (23-29) mEq/L BUN 11 (8-23) mg/dL Creatinine 0.77 (0.60-1.20) mg/dL Glucose 117 H (70-105) mg/dL Calcium 9.6 (8.6-10.3) mg/dL Calcium panel 10/05/18 Range/Units 06:09 Calcium 9.6 (8.6-10.3) mg/dL Pituitary panel 10/05/18 Range/Units 06:09 Sodium 138 (136-145) mEq/L Potassium 3.7 (3.5-5.1) mEq/L Chloride 101 (98-107) mEq/L Carbon Dioxide 27 (23-29) mEq/L BUN 11 (8-23) mg/dL Creatinine 0.77 (0.60-1.20) mg/dL Glucose 117 H (70-105) mg/dL Calcium 9.6 (8.6-10.3) mg/dL Adrenal panel 10/05/18 Range/Units 06:09 Sodium 138 (136-145) mEq/L Potassium 3.7 (3.5-5.1) mEq/L Chloride 101 (98-107) mEq/L Carbon Dioxide 27 (23-29) mEq/L BUN 11 (8-23) mg/dL Creatinine 0.77 (0.60-1.20) mg/dL Glucose 117 H (70-105) mg/dL Calcium 9.6 (8.6-10.3) mg/dL
--- NOTE | 2018-10-04 14:39 | Internal Med Progress Note ---
Hospitalist Progress Note - Encounter Date of Encounter: 10/04/18 Time of Encounter: 09:00 - Subjective Interval History: No major events overnight. Patient still complaining about nausea and vomiting. Today she is complaining about right flank pain which is new for her. She denied chest pain, shortness of breath or palpitations.. - Exam Vitals: Temp Pulse Resp BP Pulse Ox 98.9 F 97 14 162/91 97 10/04/18 14:18 10/04/18 14:18 10/04/18 14:18 10/04/18 14:18 10/04/18 14:18 Exam: General: Patient is alert, oriented 3. Mild distress. Head: Atraumatic, normal inspection, normocephalic. Eye: EOMI, PERRLA, no scleral icterus noted. ENT: Mucous membranes moist. No odontogenic infection noted. Neck: Normal inspection, no meningismus. Respiratory: No respiratory distress, rhonchi, or wheezes noted. Cardiovascular: Regular rate and regular rhythm, GI: Soft, nondistended, normal bowel sounds. Right flank pain tenderness with deep palpation. Extremities:No joint swelling, pedal edema, or tenderness noted. Neurological: Alert, oriented 3, no focal deficits. dysartheric Psychiatric: normal affect, normal mood. Skin: Dry, intact, warm. Normal color. No rashes. - Assessment and Plan (1) UTI (urinary tract infection) Current Visit: Yes Status: Acute (2) Intractable nausea and vomiting Current Visit: Yes Status: Acute (3) Parkinsons disease Current Visit: Yes Status: Chronic (4) Depression Current Visit: Yes Status: Chronic (5) Hypertension Current Visit: No Status: Acute (6) Failure to thrive in adult Current Visit: Yes Status: Acute (7) Hypercalcemia Current Visit: Yes Status: Acute (8) Kidney stone on right side Current Visit: Yes Status: Acute (9) History of DVT (deep vein thrombosis) Current Visit: Yes Status: Acute (10) Protein calorie malnutrition Current Visit: Yes Status: Acute - Summary of Assessment and Plan Summary of Assessment and Plan: Ms. Hensley is a 78 year old female with history of HTN, PFO with closure and IVC filter, CVA with residual weakness, Parkinsons disease, DVT on Xarelto, presented from SNF for intractable N/V and weight loss. Intractable nausea and vomiting: - Likely related to infection given her Ecoli in her urine. Also medication SE is suspected (sinemet) Discussed with pharmacy, will administer sentiment with diet only - She also has nephrolithiasis on CT abdomen for which urology is consulted. malignancy can't be excluded given her thyroid nodule on CT neck as per previous notes ( was supposed to see vocational examiner) - GI is also consulted, EGD on 05/02 was normal and MRI brain was negative. EGD on 10/03 showed mildly severe esophagitis. Had cholecystectomy this year removed without improvement in her symptoms. Flex sigmoidoscopy without evidence of a mass. - switch to unasyn for her UTI. was initially on rocephine/zosyn. got total 3 days of abx. - start her on PPI twice a day and Carafate as per GI recommendation. - today for urinary stent placement. Nephrolithiasis: -CT abdomen revealed 4 mm renal calculus at the right ureteropelvic junction without hydronephrosis - Patient was complaining about abdominal pain however she is not complaining today. - Urology is consulted, spoke with him over the phone, today for stent placement given her intractable nausea and vomiting and new onset flank pain today. Hypokalemia: Resolved - 2/2 vomiting, replacement given Hypokalemia: - On KCL with IVF. Unable to tolerate oral intake. History of Parkinson disease: - Continue home medication. History of DVT: - Seems provoked from reviewing previous records, s/p cholecystectomy. - Xarelto will be started today, was on therapeutic Lovenox. HTN: - On norvasc, continue protein calorie malnutrition: - 2/2 above. Family asked about PEG tube placement however this can worsen her N/V and increase the risk of her aspiration. dvt ppx: on xarelto Diet: NPO in an anticipation for urinary stent tomorrow. - Time Spent with Patient Total time spent is greater than 50% in coordination of care (as documented) at patient's floor/unit and/or counseling patient: Plan of Care Discussed with: patient Internal Medicine: Result - Labs CBC & Chem 7: 10/04/18 05:37 10/04/18 05:37 Labs: Short CBC 10/04/18 Range/Units 05:37 WBC 8.9 (4.3-11.1) K/mcL Hgb 13.6 (11.5-15.4) g/dL Hct 41.9 (35.3-44.9) % Plt Count 182 (140-400) K/mcL BMP 10/04/18 05:37 Sodium 141 Potassium 3.3 L Chloride 97 L Carbon Dioxide 26 BUN 8 Creatinine 0.77 Glucose 104 Calcium 9.7 - ABG Interpretation ABG results: PT/INR, D-dimer PT 11.9 Seconds (9.4-12.1) 10/01/18 15:21 Consult Discharge Plan - Plan Referrals: Alessandro Vines DO [Primary Care Provider] - (1) UTI (urinary tract infection) Qualifiers: Urinary tract infection type: site unspecified Hematuria presence: with hematuria Qualified Code(s): N39.0 - Urinary tract infection, site not specified; R31.9 - Hematuria, unspecified (2) Intractable nausea and vomiting Qualifiers: Vomiting type: unspecified Qualified Code(s): R11.2 - Nausea with vomiting, unspecified (4) Depression Qualifiers: Depression Type: major depressive disorder Major depression recurrence: unspecified whether recurrent Major depression episode severity: unspecified Qualified Code(s): F32.9 - Major depressive disorder, single episode, unspecified (5) Hypertension Qualifiers: Hypertension type: essential hypertension Qualified Code(s): I10 - Essential (primary) hypertension (10) Protein calorie malnutrition Qualifiers: Protein-calorie malnutrition severity: moderate Qualified Code(s): E44.0 - Moderate protein-calorie malnutrition
[2018-10-04] MEDS ORDERED: *HR* Rivaroxaban 15 MG TABLET PO SCH (17:00)
--- NOTE | 2018-10-04 17:28 | Anesthesia Evaluation PreOp ---
Date of Encounter: 10/04/18 Time of Encounter: 17:25 - Past History Planned Operation: Cysto R stent Cardiac History: HTN, Hyperlipidemia, Cardiac Stent (x 3, EF 45-50%), Other (PFO, DVT on xarelto) Pulmonary History: Denies Any Significant HX MIDDLE SCHOOL COUNSELOR History: CVA (x 3 with residual L dised weakness and dysarthria, parkinson' s, depression) Other Medical History: GERD Anesthesia History: No Prior Anesthetic Complications, Past Anesthesia (alpa, EGD with flexsig yesterday) Alcohol Use: none Drug use: none Medications and Allergies Amlodipine Besylate 10 mg PO DAILY 04/06/17 [History] Atorvastatin [Lipitor] 40 mg PO HS 04/06/17 [History] Carbidopa/Levodopa ER 50/200 [Sinemet ER 50-200 Tab] 1 tab PO BID 04/06/17 [History] Sertraline [Zoloft] 100 mg PO DAILY 04/06/17 [History] Bethanechol [Urecholine] 25 mg PO BID 04/18/18 [History] Gabapentin [Neurontin] 300 mg PO BID 04/18/18 [History] Buspirone HCl [Buspar] 5 mg PO BID 06/24/18 [History] Lansoprazole [Prevacid] 30 mg PO DAILY 06/24/18 [History] Rivaroxaban [Xarelto] 15 mg PO BID #60 tablet 06/26/18 [Rx] Ondansetron [Zofran ODT] 8 mg SL Q4HR 10/01/18 [History] Oxybutynin [Ditropan] 5 mg PO BID 10/01/18 [History] Promethazine [Phenergan] 25 mg RC Q6H 10/01/18 [History] Tramadol HCl [Ultram] 50 mg PO Q4H PRN 10/01/18 [History] Sertraline [Zoloft] 50 mg PO DAILY 10/02/18 [History] Sucralfate [Carafate] 1 gm PO DAILY 10/02/18 [History] Allergy/AdvReac Type Severity Reaction Status Date / Time Sulfa (Sulfonamide Allergy Hives Verified 10/02/18 23:40 Antibiotics) - Meds/Allergy Pre-op Review Medications Reviewed: Yes Allergies Reviewed: Yes Beta Blockers on Current Med List: No Anesthesia Results - Labs 10/04/18 05:37 10/04/18 05:37 - Imaging EKG: report reviewed (Interpretive Statements Sinus arrhythmia Incomplete right bundle branch block Electronically Signed On 10-03-2018 13:59:47 EDT by Johnathon Hartman) Anesthesia Exam Vital Signs/O2 Sat, Most Current Temp Pulse Resp BP Pulse Ox 98.9 F 97 14 162/91 97 10/04/18 14:18 10/04/18 14:18 10/04/18 14:18 10/04/18 14:18 10/04/18 14:18 Weight: 50kg - HEENT Pupil (Motor): Pupils equal, EOMI Mallampati: II Teeth: Edentulous Oral Opening: Greater than 3 - 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
--- NOTE | 2018-10-04 17:47 | Operative Note ---
Date of procedure: 10/04/18 Pre-op diagnosis: right renal stone. intractable N/V Post-op diagnosis: same Procedure: cystoscopy. right retrograde pyelogram and JJ stent placement. Anesthesia: GETA Surgeon: oHlden Quevedo Was there an assistant basketball coach present: No Estimated blood loss (cc): 0 Specimen: none Condition: stable Disposition: PACU Procedure in Detail: PROCEDURE IN DETAIL: Patient was taken back to the operating room, positioned supine on the operating table. Anesthesia was applied without complication. They were moved into dorsal lithotomy. Careful attention was maintained to cushion all pressure points for patient's safety. They were prepped and draped in sterile fashion. Time-out was performed with the proper patient and procedure. A 21-Swedish rigid cystoscope was inserted into the bladder without difficulty. Systematic examination of bladder revealed some mild cystitis cystica and debris. The right ureteral orifice was cannulated using a 5-Swedish ureteral Catheter and a retrograde pyelogram was performed using Isovue. A filling defect was identified which corresponded to the stone but it appeared to be near the lower pole. The kidney did have the appearance of a ureteropelvic junction obstruction and the contrast did not wash out quickly. At that point, a zip wire was placed through the 5-Swedish and confirmed in the renal pelvis with fluoroscopy. A 4.8 x 24 ureteral stent was placed over the zip wire under fluoroscopy without complication. I elected to place a Alvarado catheter to promote drainage from the kidney. 16-Swedish cath was placed at the end of the procedure
[2018-10-04] MEDS ORDERED: Ampicillin/Sulbactam 1,500 MG in 0.9 % Sodium Chloride Mini Bag 100 ML IVPB SCH (18:00)
[2018-10-04] MEDS ORDERED: *HR* FentaNYL (PF) 100 MCG/2 ML VIAL ONE (18:01)
[2018-10-04] MEDS ORDERED: Lidocaine -MPF 2% 2 ML VIAL ONE (18:01)
[2018-10-04] MEDS ORDERED: *HR* Propofol 200 MG/20 ML VIAL IVP ONE (18:01)
[2018-10-04] MEDS ORDERED: *HR* Rocuronium Bromide 50 MG/5 ML VIAL ONE (18:06)
[2018-10-04] MEDS ORDERED: Ondansetron 4 MG/2 ML VIAL ONE (18:06)
[2018-10-04] MEDS ORDERED: Dexamethasone 4 MG/ML VIAL ONE (18:06)
[2018-10-04] MEDS ORDERED: *HR* PHENYLEPHRINE 1,000 MCG/10 ML SYRINGE IVP ONE (18:18)
[2018-10-04] MEDS: *HR* Labetalol 20 MG/4 ML SYRINGE IVP PRN (19:49)
[2018-10-04] MEDS ORDERED: *HR* Labetalol 20 MG/4 ML SYRINGE IVP PRN (20:35)
[2018-10-04] MEDS ORDERED: Ondansetron 4 MG/2 ML VIAL IVP PRN (20:35)
[2018-10-04] MEDS ORDERED: Naloxone 0.4 MG/ML INJ IVP PRN (20:35)
[2018-10-04] MEDS: traMADol 50 MG TABLET PO PRN (20:58)
--- NOTE | 2018-10-04 21:02 | Anesthesia Evaluation Post Op ---
Date of Encounter: 10/04/18 Time of Encounter: 21:01 - Vital Signs Vital Signs: Vital Signs/O2 Sat, Most Current Temp Pulse Resp BP Pulse Ox 98.4 F 83 14 166/107 96 10/04/18 20:37 10/04/18 20:37 10/04/18 20:37 10/04/18 20:37 10/04/18 20:37 - Lungs Lungs: Clear Ascult./Percussion - Airway Airway: Non-obstructed - Cardiovascular Baseline Rhythm - Mental Status Mental Status: Baseline Status - Pain Pain Scale: 0 Pain Scale used: Numeric (1 - 10) - Nausea Vomiting Nausea Vomiting: Not Present - Hydration Hydration: Tolerates oral liquids - Discharge PostOp Status: Transfer Patient to floor
[2018-10-05] MEDS: Ampicillin/Sulbactam 1,500 MG in 0.9 % Sodium Chloride Mini Bag 100 ML IVPB SCH ×5 (00:19→23:13)
[2018-10-05] MEDS: *HR* Promethazine 25 MG/ML VIAL IVP PRN ×3 (00:20→15:25)
[2018-10-05] MEDS: Pantoprazole 40 MG VIAL IVP SCH ×2 (06:05→18:16)
[2018-10-05 06:20] LABS: Hematocrit 37.2 % (35.3-44.9); Hemoglobin 12.1 g/dL (11.5-15.4); Mean Corpuscular HGB Conc 32.5 g/dL (31.6-35.5); Mean Corpuscular Hemoglobin 26.3 pg (28.0-33.3); Mean Corpuscular Volume 80.9 fL (83.0-100.0); Mean Platelet Volume 10.7 fL (9.4-12.4); Platelet Count 159 K/mcL (140-400); Red Cell Distribution Width 14.6 % (11.5-14.5); White Blood Count 7.9 K/mcL (4.3-11.1)
[2018-10-05 06:40] LABS: BUN/Creatinine Ratio 14 (6-26); Blood Urea Nitrogen 11 mg/dL (8-23); Calcium 9.6 mg/dL (8.6-10.3); Carbon Dioxide 27 mEq/L (23-29); Chloride 101 mEq/L (98-107); Glucose 117 mg/dL (70-105); Osmolality,Calculated 286 (280-300); Potassium 3.7 mEq/L (3.5-5.1); Sodium 138 mEq/L (136-145); eGFR For African Americans > 60 (> 60); eGFR For Non-African Americans > 60 (> 60)
[2018-10-05] MEDS: 0.9 % Sodium Chloride w KCl 40 MEQ/1,000 ML MLS IVC SCH (08:39)
--- NOTE | 2018-10-05 09:08 | Urology Progress Note ---
<Rubia Shaffer N - Last Filed: 10/05/18 09:06> Date of Encounter: 10/05/18 Time of Encounter: 08:20 - Assessment and Plan (1) Kidney stone on right side Current Visit: Yes Status: Acute Assessment and plan: Patient is a 78-year-old female who presents one day status post cystoscopy, right retrograde pyelogram and right ureteral stent placement. Vital signs remained stable and afebrile. White blood cell count and renal function are both reassuring. Patient is aware she will require a staged stone extraction procedure once urinary tract infection is cleared. I counseled patient on postoperative expectations of indwelling ureteral stent. Patient is receiving a clear liquid diet. Diet advancement per primary team. (2) UTI (urinary tract infection) Current Visit: Yes Status: Acute Assessment and plan: Patient is a 78-year-old female who presents with pansensitive Escherichia coli urinary tract infection. Clinically, patient appears much improved today. Patient is receiving IV Unasyn. Urology recommends an additional 2 weeks of oral culture sensitive antibiotics after discharge. Vital signs are currently stable and afebrile, although, heart rate is 104 with irregularity on telemetry. Maximum temperature overnight to 100.4. Hospitalist management is appreciated. Urology will continue to follow. Qualifiers: Urinary tract infection type: site unspecified Hematuria presence: with hematuria Qualified Code(s): N39.0 - Urinary tract infection, site not specified; R31.9 - Hematuria, unspecified Progress Note Subjective: hematuria Narrative: POD #1. Patient seen and examined sitting upright in bed in no apparent distress. Patient reports she feels much better, and the flank pain, nausea and vomiting have resolved. Mentation appears improved. Patient is voiding well without difficulty. Patient reports feeling an increase in appetite. Patient denies any fever, chills gross hematuria. Objective Initial Vital Signs Temp Pulse Resp BP Pulse Ox 98.3 F 72 16 148/99 97 10/01/18 15:08 10/01/18 15:08 10/01/18 15:08 10/01/18 15:08 10/01/18 15:08 - General physical appearance Present: well developed, no distress, no pain - Respiratory Present: normal expansion, normal respiratory effort - Abdomen Present: soft, non tender. Absent: distended - Integumentary Present: no rash, no abnormal pigmentation - Musculoskeletal Present: normal posture - Psychiatric Present: oriented to time, oriented to person, oriented to place, memory intact. Absent: speech is normal ([place]) - Labs 10/05/18 06:09 10/05/18 06:09 Diabetes panel 10/05/18 Range/Units 06:09 Sodium 138 (136-145) mEq/L Potassium 3.7 (3.5-5.1) mEq/L Chloride 101 (98-107) mEq/L Carbon Dioxide 27 (23-29) mEq/L BUN 11 (8-23) mg/dL Creatinine 0.77 (0.60-1.20) mg/dL Glucose 117 H (70-105) mg/dL Calcium 9.6 (8.6-10.3) mg/dL Calcium panel 10/05/18 Range/Units 06:09 Calcium 9.6 (8.6-10.3) mg/dL Pituitary panel 10/05/18 Range/Units 06:09 Sodium 138 (136-145) mEq/L Potassium 3.7 (3.5-5.1) mEq/L Chloride 101 (98-107) mEq/L Carbon Dioxide 27 (23-29) mEq/L BUN 11 (8-23) mg/dL Creatinine 0.77 (0.60-1.20) mg/dL Glucose 117 H (70-105) mg/dL Calcium 9.6 (8.6-10.3) mg/dL Adrenal panel 10/05/18 Range/Units 06:09 Sodium 138 (136-145) mEq/L Potassium 3.7 (3.5-5.1) mEq/L Chloride 101 (98-107) mEq/L Carbon Dioxide 27 (23-29) mEq/L BUN 11 (8-23) mg/dL Creatinine 0.77 (0.60-1.20) mg/dL Glucose 117 H (70-105) mg/dL Calcium 9.6 (8.6-10.3) mg/dL Consult Discharge Plan - Plan Referrals: Alessandro Vines DO [Primary Care Provider] - Holden Quevedo MD [Partnered Physician] - <Holden Quevedo - Last Filed: 10/06/18 07:03> Date of Encounter: 10/06/18 - Assessment and Plan (1) Kidney stone on right side Current Visit: Yes Status: Acute Assessment and plan: Agree with physician assistants assessment and plan. Patient was not evaluated by Katharine on this date Objective Initial Vital Signs Temp Pulse Resp BP Pulse Ox 98.3 F 72 16 148/99 97 10/01/18 15:08 10/01/18 15:08 10/01/18 15:08 10/01/18 15:08 10/01/18 15:08 - Labs 10/05/18 06:09 10/05/18 06:09
--- NOTE | 2018-10-05 09:47 | Internal Med Progress Note ---
Hospitalist Progress Note - Encounter Date of Encounter: 10/05/18 Time of Encounter: 09:45 - Subjective Interval History: I have seen and evaluated the patient at bedside. Patient reports still feeling nauseated. and continues to have dry heaves. denies chest pain or shortness of breath. no abdominal pain. - Exam Vitals: Temp Pulse Resp BP Pulse Ox 98.1 F 104 14 156/102 98 10/05/18 07:16 10/05/18 07:16 10/05/18 07:16 10/05/18 07:16 10/05/18 07:16 Exam: Vitals: Reviewed General: Alert and oriented x4. In mild distress due to nausea. Cardiovascular: RRR, normal S1 & S2, no rubs, murmurs or gallops. Lungs: CTA b/l, no wheezes or crackles. Abdomen: Obese, soft, non-tender, no rigidity. Extremities: No edema Neurological: Normal cognition Rest of the physical exam is non contributory . - Assessment and Plan (1) Intractable nausea and vomiting Current Visit: Yes Status: Acute Assessment and Plan: patient continues to report feeling nauseated. dry heaving. no abdominal pain. patient s/p EGC and colonoscopy. Plan: - change PPIs to scheduled - on a clear liquid diet - decrease fluids to 75ml/hr x1 more bag (2) Parkinsons disease Current Visit: Yes Status: Chronic Assessment and Plan: Patient is on carbidopa/levodopa. (3) Depression Current Visit: Yes Status: Chronic Assessment and Plan: On sertraline 150 mg by mouth daily. and buspirone 5mg/PO BID. (4) Hypertension Current Visit: No Status: Chronic Assessment and Plan: Blood pressure suboptimally controlled. Continue amlodipine, and hydralazine 10 mg IV every 6 hours when necessary for systolic blood pressure more than 180. (5) Failure to thrive in adult Current Visit: Yes Status: Acute (6) Hypercalcemia Current Visit: Yes Status: Resolved (7) Kidney stone on right side Current Visit: Yes Status: Acute Assessment and Plan: Patient is status post cystoscopy. right retrograde pyelogram and JJ stent placement. (8) UTI (urinary tract infection) Current Visit: Yes Status: Acute Assessment and Plan: U/C: rainey-sensitive E.Coli. patient spike a low grade fever yesterday. Blood culture ordered. Continue IV antibiotics. (9) History of DVT (deep vein thrombosis) Current Visit: Yes Status: Chronic Assessment and Plan: Patient is on rivaroxaban 15mg/PO daily (10) Protein calorie malnutrition Current Visit: Yes Status: Chronic DVT Prophylaxis: Patient is on an Oral anticoagulant due to a Hx of DVT. - Summary of Assessment and Plan Summary of Assessment and Plan: Patient to remain in the hospital due to persistent nausea, vomiting. Potential discharge tomorrow morning. - Time Spent with Patient Total time spent is greater than 50% in coordination of care (as documented) at patient's floor/unit and/or counseling patient: Greater than 35 minutes (40) Plan of Care Discussed with: patient (and the nurse.) Internal Medicine: Result - Labs CBC & Chem 7: 10/05/18 06:09 10/05/18 06:09 Labs: Short CBC 10/05/18 Range/Units 06:09 WBC 7.9 (4.3-11.1) K/mcL Hgb 12.1 D (11.5-15.4) g/dL Hct 37.2 (35.3-44.9) % Plt Count 159 (140-400) K/mcL BMP 10/05/18 06:09 Sodium 138 Potassium 3.7 Chloride 101 Carbon Dioxide 27 BUN 11 Creatinine 0.77 Glucose 117 H Calcium 9.6 - ABG Interpretation ABG results: PT/INR, D-dimer PT 11.9 Seconds (9.4-12.1) 10/01/18 15:21 - Impressions Impressions Retrograde Pyelogram 10/04/18 00:00 IMPRESSION: Intraprocedural fluoroscopic spot images as above. See separate procedure report for more information. D/ / Alphonse May MD / Alphonse May MD Interpreting Provider: Alphonse May MD Consult Discharge Plan - Plan Referrals: Alessandro Vines DO [Primary Care Provider] - Holden Quevedo MD [Partnered Physician] - (1) Intractable nausea and vomiting Qualifiers: Vomiting type: unspecified Qualified Code(s): R11.2 - Nausea with vomiting, unspecified (3) Depression Qualifiers: Depression Type: major depressive disorder Major depression recurrence: unspecified whether recurrent Major depression episode severity: unspecified Qualified Code(s): F32.9 - Major depressive disorder, single episode, unspecified (4) Hypertension Qualifiers: Hypertension type: essential hypertension Qualified Code(s): I10 - Essential (primary) hypertension (8) UTI (urinary tract infection) Qualifiers: Urinary tract infection type: site unspecified Hematuria presence: with hematuria Qualified Code(s): N39.0 - Urinary tract infection, site not specified; R31.9 - Hematuria, unspecified (10) Protein calorie malnutrition Qualifiers: Protein-calorie malnutrition severity: moderate Qualified Code(s): E44.0 - Moderate protein-calorie malnutrition
[2018-10-05] MEDS ORDERED: 0.9 % Sodium Chloride w KCl 40 MEQ/1,000 ML MLS IVC SCH (09:50)
[2018-10-05] MEDS: Carbidopa/Levodopa ER 50/200 TABLET PO SCH ×2 (10:27→18:16)
[2018-10-05] MEDS: amLODIPine 5 MG TABLET PO SCH (10:27)
[2018-10-05] MEDS ORDERED: Morphine Sulfate 2 MG/ML SYRINGE IVP ONE (10:37)
[2018-10-05] MEDS: Ondansetron 4 MG/2 ML VIAL IVP SCH ×2 (15:25→23:13)
[2018-10-05] MEDS ORDERED: *HR* Rivaroxaban 15 MG TABLET PO SCH (17:00)
[2018-10-05] MEDS ORDERED: *HR* Rivaroxaban 10 MG TABLET PO SCH (17:00)
[2018-10-06] MEDS: Ampicillin/Sulbactam 1,500 MG in 0.9 % Sodium Chloride Mini Bag 100 ML IVPB SCH (05:18)
[2018-10-06] MEDS: Pantoprazole 40 MG VIAL IVP SCH ×2 (05:18→17:01)
--- NOTE | 2018-10-06 07:06 | Urology Progress Note ---
Date of Encounter: 10/06/18 Time of Encounter: 07:04 - Assessment and Plan (1) Kidney stone on right side Current Visit: Yes Status: Acute Assessment and plan: Unfortunately the patient's intractable nausea, vomiting, intolerance to diet has not improved with ureteral stent. This suggests that the renal stone was not the underlying cause of her illness. I suspect that her nausea and vomiting is not related to a urologic condition. Unsure if represents failure to thrive. We will continue to follow the patient while in the hospital but no further urologic intervention required at this point. If the patient improves she will require definitive management of the stone as an outpatient. Progress Note Narrative: Patient's condition does not improve with ureteral stent placement. She continues to have similar nausea vomiting and intolerance to diet. Objective Initial Vital Signs Temp Pulse Resp BP Pulse Ox 98.3 F 72 16 148/99 97 10/01/18 15:08 10/01/18 15:08 10/01/18 15:08 10/01/18 15:08 10/01/18 15:08 - General physical appearance Present: no distress, chronically ill - Additional Exam Urine relatively clear - Labs 10/05/18 06:09 10/05/18 06:09 Consult Discharge Plan - Plan Referrals: Alessandro Vines DO [Primary Care Provider] - Holden Quevedo MD [Partnered Physician] -
[2018-10-06] MEDS ORDERED: Metoclopramide 10 MG/2 ML VIAL IVP PRN (08:33)
[2018-10-06] MEDS: Ondansetron 4 MG/2 ML VIAL IVP SCH ×2 (08:58→17:01)
[2018-10-06] MEDS: Carbidopa/Levodopa ER 50/200 TABLET PO SCH ×2 (08:58→16:59)
[2018-10-06] MEDS: amLODIPine 5 MG TABLET PO SCH (08:59)
--- NOTE | 2018-10-06 09:57 | Internal Med Progress Note ---
Hospitalist Progress Note - Encounter Date of Encounter: 10/06/18 Time of Encounter: 09:55 - Subjective Interval History: I have seen and evaluated the patient at bedside. patient still reports having dry heaves. denies abdominal pain, shortness of breath or chest pain. Per nurse patient tolerated very little oral intake yesterday, everything she took would come up. - Exam Vitals: Temp Pulse Resp BP Pulse Ox 98.0 F 94 15 152/97 96 10/06/18 06:29 10/06/18 06:29 10/06/18 06:29 10/06/18 06:29 10/06/18 06:29 Exam: Vitals: Reviewed General: Alert and oriented x4. In mild distress due to nausea. Cardiovascular: RRR, normal S1 & S2, no rubs, murmurs or gallops. Lungs: CTA b/l, no wheezes or crackles. Abdomen: Obese, soft, non-tender, no rigidity. NABS in all 4 quadrants Extremities: No edema Neurological: No acute focal neurological abnormalities Rest of the physical exam is non contributory . - Assessment and Plan (1) Intractable nausea and vomiting Current Visit: Yes Status: Acute Assessment and Plan: patient continues to report feeling nauseated. dry heaving. patient was not able to tolerate anything PO yesterday. previous chart reviewed. patient with an extensive work up and everything has been negative. this nausea, could be related to her previous stroke. patient s/p EGC and colonoscopy: unremarkable Plan: -continue PPIs to scheduled - on a clear liquid diet - Modified barrium swallow and speech therapy ordered - started on metoclopramide 10mg/IV Q6HRs - DC phenergan (2) Parkinsons disease Current Visit: Yes Status: Chronic Assessment and Plan: On carbidopa/levodopa. (3) Depression Current Visit: Yes Status: Chronic Assessment and Plan: Continue home medications. On sertraline 150 mg by mouth daily. and buspirone 5mg/PO BID. (4) Hypertension Current Visit: No Status: Chronic Assessment and Plan: Blood pressure well controlled. Plan On amlodipine 10mg/PO daily hydralazine 10 mg IV every 6 hours when necessary for systolic blood pressure more than 180. (5) Failure to thrive in adult Current Visit: Yes Status: Chronic (6) Hypercalcemia Current Visit: Yes Status: Resolved (7) Kidney stone on right side Current Visit: Yes Status: Acute Assessment and Plan: Patient is status post cystoscopy. right retrograde pyelogram and JJ stent placement. patient with gross hematuria. Urology informed. recommendations appreciated. (8) UTI (urinary tract infection) Current Visit: Yes Status: Acute Assessment and Plan: U/C: rainey-sensitive E.Coli. Blood culture: no growth to date DC ampicillin/sulbactam ceftriaxone 1gm/IV daily added. (9) History of DVT (deep vein thrombosis) Current Visit: Yes Status: Chronic Assessment and Plan: patient with a provoke DVT diagnosed about 3 months ago. Rivaroxaban has been held due to gross hematuria. (10) Protein calorie malnutrition Current Visit: Yes Status: Chronic DVT Prophylaxis: no chemical dvt prophylaxis due to gross hematuria. no mechanical dvt prophylaxis due to acute DVT. - Summary of Assessment and Plan Summary of Assessment and Plan: Patient to remain in the hospital due to Nausea, gross hematuria. scheduled for modified barrium swallow. - Time Spent with Patient Total time spent is greater than 50% in coordination of care (as documented) at patient's floor/unit and/or counseling patient: Greater than 35 minutes (45) Plan of Care Discussed with: nurse Internal Medicine: Result - Labs CBC & Chem 7: 10/05/18 06:09 10/05/18 06:09 - ABG Interpretation ABG results: PT/INR, D-dimer PT 11.9 Seconds (9.4-12.1) 10/01/18 15:21 Consult Discharge Plan - Plan Referrals: Alessandro Vines DO [Primary Care Provider] - Holden Quevedo MD [Partnered Physician] - (1) Intractable nausea and vomiting Qualifiers: Vomiting type: unspecified Qualified Code(s): R11.2 - Nausea with vomiting, unspecified (3) Depression Qualifiers: Depression Type: major depressive disorder Major depression recurrence: unspecified whether recurrent Major depression episode severity: unspecified Qualified Code(s): F32.9 - Major depressive disorder, single episode, unspecified (4) Hypertension Qualifiers: Hypertension type: essential hypertension Qualified Code(s): I10 - Essential (primary) hypertension (8) UTI (urinary tract infection) Qualifiers: Urinary tract infection type: site unspecified Hematuria presence: with hematuria Qualified Code(s): N39.0 - Urinary tract infection, site not specified; R31.9 - Hematuria, unspecified (10) Protein calorie malnutrition Qualifiers: Protein-calorie malnutrition severity: moderate Qualified Code(s): E44.0 - Moderate protein-calorie malnutrition
[2018-10-06] MEDS: traMADol 50 MG TABLET PO PRN (10:15)
[2018-10-06] MEDS ORDERED: *HR* Labetalol 20 MG/4 ML SYRINGE IVP PRN (11:39)
[2018-10-06] MEDS: Metoclopramide 10 MG/2 ML VIAL IVP SCH ×2 (12:11→17:01)
[2018-10-06] MEDS: D5% in 0.45% NACL 1,000 ML IVC SCH (12:12)
[2018-10-06] MEDS: cefTRIAXone 1,000 MG in Water for inj. (sterile) 10 ML IVP SCH (12:12)
--- NOTE | 2018-10-06 14:44 | Palliative - Consult Note ---
Date of Encounter: 10/06/18 Time of Encounter: 14:30 - Assessment and Plan (1) Intractable nausea and vomiting Current Visit: Yes Status: Acute Assessment and plan: She is currently on Carafate, Protonix, Scheduled Ondansetron, and recently began on Reglan. Review results of MBS. In speaking with family, Ativan was trialed at home by hospice as well. If Reglan not effective, would recommend trial of low dose Haldol oral concentrate 1-2 mg every 4 hours. This can be helpful at times for nausea/vomiting unresolved with other antiemetics. Qualifiers: Vomiting type: unspecified Qualified Code(s): R11.2 - Nausea with vomiting, unspecified (2) Generalized pain Current Visit: Yes Status: Acute Assessment and plan: Has Tramadol ordered, utilized x1 last 24 hours. Also has low dose IV Morphine available if needed. Has not required. Monitor (3) Goals of care, counseling/discussion Current Visit: Yes Status: Acute Assessment and plan: Met with patient and her brother/niece in room. She was enrolled with [facility] for CVA/Parkinsons. I confirmed this with [facility]. Lives with nephew and had went for Respite stay. After d/c, she wants to go back home and not to a facility. Nephew asked if hospice support could be increased. I will speak with them regarding this. D/W pt. if we are unable to find etiology of her n/v, if she would desire artificial feeding and she DOES NOT want a feeding tube. I did explain that if nausea/vomiting continues, she would continue to decline. Discussed that there a a couple of different medications that could still be attempted to control her symptoms. Palliative will f/u on Tuesday if patient remains in hospital. Patient does want to continue with [facility] services whenever she is discharged. (4) Parkinsons disease Current Visit: Yes Status: Chronic (5) Kidney stone on right side Current Visit: Yes Status: Acute Assessment and plan: Urology placed stent, still with hematuria. They are following. (6) Protein calorie malnutrition Current Visit: Yes Status: Chronic Assessment and plan: Agricultural Production [employer] following. Intractable nausea is being treated with multiple medications. Endoscopies negative. Awaiting MBS later today. Patient does not want artificial feeding or PEG. Qualifiers: Protein-calorie malnutrition severity: moderate Qualified Code(s): E44.0 - Moderate protein-calorie malnutrition Palliative-CN HPI - Data of Consult Requesting Physician: Saulo Rosa MD Primary Care Provider: Anthony Vines DO - Consult Narrative History of present illness: Ms. Hensley is a 78 year old female who was admitted from [facility] - where she was having a 5 day respite stay, with intractable nausea and vomiting. She is a [facility] patient at home, cared for by her nephew. She was admitted to hospice with dx of CVA and Parkinson's. She has medical history of CVA, HTN, PFO, Parkinson's, DVT. Patient has been struggling with nausea and vomiting for several months, however, this has worsened within the last few weeks. Patient's brother is at bedside, and states she is unable to keep down any solids or liquids. Imaging on admission demonstrated a 4 mm stone - urology consult was completed and patient did have stent placed. + UTI and receiving atb therapy. She has been treated with Ondansetron, Promethazine, PPI Carafate, for nausea, and still states no relief. She is scheduled for MBS later today. She had previously declined any testing for her n/v, however, did agree to come to hospital and have the etiology of n/v determined. Upon my visit, brother is present at bedside. She is alert and oriented. Speaks in a whisper. Flat affect. Denies pain at this time, but states she frequently has back/leg pain and headaches. Emesis bag at bedside. States solids/liquids quickly come up after ingesting. Vitals stable. CC: Saulo Rosa MD - Time Spent with Patient Time: Total time spent is greater than 50% in coordination of care (as documented) at patient's floor/unit and/or counseling patient: Past Med Surg Social Fam HX - Past Medical History Medical history: coronary artery disease, CVA, hyperlipidemia, hypertension Additional medical history: Parkinson's Disease Psychiatric history: depression - Past Surgical History Surgical History: cholecystectomy Additional surgical history: Laparoscopic - Social History Smoking Status: Never smoker Smokeless Tobacco Status: No Alcohol use: none Drug use: none - Family History Mother Hx Family Cardiac Disorders: Yes Father Hx Family Cardiac Disorders: Yes Medications and Allergies Amlodipine Besylate 10 mg PO DAILY 04/06/17 [History] Atorvastatin [Lipitor] 40 mg PO HS 04/06/17 [History] Carbidopa/Levodopa ER 50/200 [Sinemet ER 50-200 Tab] 1 tab PO BID 04/06/17 [History] Sertraline [Zoloft] 100 mg PO DAILY 04/06/17 [History] Bethanechol [Urecholine] 25 mg PO BID 04/18/18 [History] Gabapentin [Neurontin] 300 mg PO BID 04/18/18 [History] Buspirone HCl [Buspar] 5 mg PO BID 06/24/18 [History] Lansoprazole [Prevacid] 30 mg PO DAILY 06/24/18 [History] Rivaroxaban [Xarelto] 15 mg PO BID #60 tablet 06/26/18 [Rx] Ondansetron [Zofran ODT] 8 mg SL Q4HR 10/01/18 [History] Oxybutynin [Ditropan] 5 mg PO BID 10/01/18 [History] Promethazine [Phenergan] 25 mg RC Q6H 10/01/18 [History] Tramadol HCl [Ultram] 50 mg PO Q4H PRN 10/01/18 [History] Sertraline [Zoloft] 50 mg PO DAILY 10/02/18 [History] Sucralfate [Carafate] 1 gm PO DAILY 10/02/18 [History] Allergy/AdvReac Type Severity Reaction Status Date / Time Sulfa (Sulfonamide Allergy Hives Verified 10/02/18 23:40 Antibiotics) - Constitutional Constitutional ROS PAL: decreased appetite, anorexia, weight loss - EENT Additional comments: Denies - Cardiovascular Additional comments: Denies - Respiratory Respiratory: dyspnea - Gastrointestinal Gastrointestinal: abdominal pain, nausea, vomiting - Genitourinary Palliative ROS female: difficulty voiding - Musculoskeletal Musculoskeletal ROS IM: muscle weakness - Integumentary Additional comments: Denies - Neurological Neurological ROS: weakness - Psychiatric Psychiatric general PM: depression Palliative Care-Exam - Constitutional Vitals: Temp Pulse Resp BP Pulse Ox 98.9 F 105 15 124/82 96 10/06/18 14:07 10/06/18 14:07 10/06/18 14:07 10/06/18 14:07 10/06/18 14:07 General appearance: Present: thin - Head Head Exam: Present: normal inspection, normocephalic - Eye Eye exam: Present: normal appearance - Respiratory Respiratory exam: Present: decreased breath sounds, CTAB - Cardiovascular Cardiovascular exam: Present: +S1, +S2, tachycardia - GI/Abdominal Exam GI/Abdominal exam: Present: normal bowel sounds, soft - Catheter Type: Urethral ([place]) Additional comments: Urine remains bloody - Extremities Exam Extremities exam: Present: normal capillary refill, normal inspection - Neurological Exam Neurological exam: Present: alert, oriented X3, strengths equal and symetr throughout - Psychiatric Psychiatric exam: Present: flat affect - Skin Skin exam: Present: dry, pallor, warm Internal Medicine - CN: Reslt - Labs CBC & Chem 7: 10/05/18 06:09 10/05/18 06:09 - ABG Interpretation ABG results: PT/INR, D-dimer PT 11.9 Seconds (9.4-12.1) 10/01/18 15:21 Consult Discharge Plan - Plan Referrals: Alessandro Vines DO [Primary Care Provider] - Holden Quevedo MD [Partnered Physician] - Palliative Quality Palliative Quality: Screen for Code Status: Yes, Screen for Goals of Care: Yes, Screen for Pain: Yes, If Pain Regimen Started, Initiate Bowel Regimen: Yes, Screen for Nausea/Vomitting: Yes Code Status: 10/01/18 17:53 Resuscitation Status: Active [RES] Routine Comment: Resuscitation Status: [id number]
[2018-10-06] MEDS ORDERED: E-Z-HD (BARIUM SULF) SUSPENSION PO ONE (15:29)
[2018-10-06] MEDS ORDERED: E-Z-PAQUE (BARIUM SULF) SUSP 1 BOTTLE PO ONE (15:29)
[2018-10-06] MEDS: Morphine Sulfate 2 MG/ML SYRINGE IVP PRN (17:01)
[2018-10-07] MEDS: Ondansetron 4 MG/2 ML VIAL IVP SCH ×3 (00:39→17:52)
[2018-10-07] MEDS: Metoclopramide 10 MG/2 ML VIAL IVP SCH ×4 (00:39→17:52)
[2018-10-07 04:30] LABS: Immature Granulocytes % 0.5 % (0-4); Red Cell Distribution Width 14.9 % (11.5-14.5)
[2018-10-07 04:32] LABS: Eosinophils % 0.5 %; Hematocrit 30.4 % (35.3-44.9); Hemoglobin 9.8 g/dL (11.5-15.4); Immature Platelets 8.6 % (1.1-6.1); Lymphocytes # 1.6 K/mcL (0.6-4.6); Lymphocytes % 25.4 %; Mean Corpuscular HGB Conc 32.2 g/dL (31.6-35.5); Mean Corpuscular Hemoglobin 26.6 pg (28.0-33.3); Mean Corpuscular Volume 82.4 fL (83.0-100.0); Mean Platelet Volume 11.1 fL (9.4-12.4); Monocytes # 0.4 K/mcL (0.0-1.3); Monocytes % 5.5 %; Red Blood Count 3.69 M/mcL (3.82-4.97); Segmented Neutrophils % 68.1 %; White Blood Count 6.4 K/mcL (4.3-11.1)
[2018-10-07 04:33] LABS: Neutrophils # 4.4 K/mcL (1.6-8.9); Platelet Count 85 K/mcL (140-400)
[2018-10-07 04:50] LABS: BUN/Creatinine Ratio 19 (6-26); Blood Urea Nitrogen 14 mg/dL (8-23); Calcium 9.5 mg/dL (8.6-10.3); Carbon Dioxide 32 mEq/L (23-29); Chloride 104 mEq/L (98-107); Glucose 110 mg/dL (70-105); Magnesium 1.2 mg/dL (1.6-2.6); Osmolality,Calculated 293 (280-300); Phosphorous 2.5 mg/dL (2.7-4.5); Potassium 3.2 mEq/L (3.5-5.1); Sodium 141 mEq/L (136-145); eGFR For African Americans > 60 (> 60); eGFR For Non-African Americans > 60 (> 60)
[2018-10-07] MEDS: Pantoprazole 40 MG VIAL IVP SCH (05:15)
[2018-10-07] MEDS ORDERED: cefTRIAXone 1,000 MG in Water for inj. (sterile) 10 ML IVP SCH (09:00)
--- NOTE | 2018-10-07 09:11 | Internal Med Progress Note ---
Hospitalist Progress Note - Encounter Date of Encounter: 10/07/18 Time of Encounter: 09:09 - Subjective Interval History: I have seen and evaluated the patient at bedside. reported improvement in her nausea symptoms. denies chest pain, shortness of breath, abdominal pain. reports pain in her coccyx area. - Exam Vitals: Temp Pulse Resp BP Pulse Ox 98.7 F 92 15 155/95 99 10/07/18 06:46 10/07/18 06:46 10/07/18 06:46 10/07/18 06:46 10/07/18 06:46 Exam: Vitals: Reviewed General: Alert and oriented x4. In no distress Cardiovascular: RRR, normal S1 & S2, no rubs, murmurs or gallops. Lungs: CTA b/l, no wheezes or crackles. Abdomen: Obese, soft, non-tender, no rigidity. NABS in all 4 quadrants Extremities: No edema Neurological: No acute focal neurological abnormalities Rest of the physical exam is non contributory . - Assessment and Plan (1) Intractable nausea and vomiting Current Visit: Yes Status: Acute Assessment and Plan: Patient with improvement of her symptoms after medications adjustments. No vomiting, or dry heaving. nausea significantly improved. previous chart reviewed. patient with an extensive work up and everything has been negative. this nausea, could be related to her previous stroke. patient s/p EGC and colonoscopy: unremarkable Plan: - On PPIs 40mg/IV daily - on a clear liquid diet - scheduled for Barium swallow this morning - continue metoclopramide 10mg/IV Q6HRs yg - on Ondansetron 4mg/IV Q12HRs. - Patient reported she does not want a PEG tube for feeding purposes (2) Parkinsons disease Current Visit: Yes Status: Chronic Assessment and Plan: Continue carbidopa/levodopa. (3) Depression Current Visit: Yes Status: Chronic Assessment and Plan: On sertraline 150 mg by mouth daily. and buspirone 5mg/PO BID. (4) Hypertension Current Visit: No Status: Chronic Assessment and Plan: Blood pressure well controlled. Plan - On amlodipine 10mg/PO daily - labetalol 5mg IV every 6 hours when necessary for systolic blood pressure more than 180. (5) Failure to thrive in adult Current Visit: Yes Status: Chronic (6) Kidney stone on right side Current Visit: Yes Status: Acute Assessment and Plan: Patient is status post cystoscopy. right retrograde pyelogram and JJ stent placement. patient with cola color urine. Urology recommendations appreciated. will monitor (7) UTI (urinary tract infection) Current Visit: Yes Status: Acute Assessment and Plan: U/C: rainey-sensitive E.Coli. Blood culture: no growth to date Continue ceftriaxone 1gm/IV daily (8) History of DVT (deep vein thrombosis) Current Visit: Yes Status: Chronic Assessment and Plan: patient with a provoke DVT diagnosed about 3 months ago. Plan: Resume Rivaroxaban 20mg/PO daily (9) Protein calorie malnutrition Current Visit: Yes Status: Chronic DVT Prophylaxis: patient on an oral anticoagulant due to Hx of recent DVT - Summary of Assessment and Plan Summary of Assessment and Plan: Patient to remain in the hospital, improving nausea. scheduled for barium swallow. potential discharge tomorrow morning - Time Spent with Patient Total time spent is greater than 50% in coordination of care (as documented) at patient's floor/unit and/or counseling patient: Greater than 35 minutes (40) Plan of Care Discussed with: patient (and the nurse) Internal Medicine: Result - Labs CBC & Chem 7: 10/07/18 03:45 10/07/18 03:45 Labs: Short CBC 10/07/18 Range/Units 03:45 WBC 6.4 (4.3-11.1) K/mcL Hgb 9.8 L D (11.5-15.4) g/dL Hct 30.4 L (35.3-44.9) % Plt Count 85 L (140-400) K/mcL Neutrophils # 4.4 (1.6-8.9) K/mcL BMP 10/07/18 03:45 Sodium 141 Potassium 3.2 L Chloride 104 Carbon Dioxide 32 H BUN 14 Creatinine 0.72 Glucose 110 H Calcium 9.5 - ABG Interpretation ABG results: PT/INR, D-dimer PT 11.9 Seconds (9.4-12.1) 10/01/18 15:21 - Impressions Impressions Videofluoroscopic Swallow 10/06/18 09:53 IMPRESSION: Limited exam due to severe nausea without penetration or aspiration observed. Please see separate speech pathology report for full discussion of findings and recommendations. D/ / 10/06/2018 15:55:52 Keny Hoffman MD / jc Interpreting Provider: Keny Hoffman MD Consult Discharge Plan - Plan Referrals: Alessandro Vines DO [Primary Care Provider] - Holden Quevedo MD [Partnered Physician] - (1) Intractable nausea and vomiting Qualifiers: Vomiting type: unspecified Qualified Code(s): R11.2 - Nausea with vomiting, unspecified (3) Depression Qualifiers: Depression Type: major depressive disorder Major depression recurrence: unspecified whether recurrent Major depression episode severity: unspecified Qualified Code(s): F32.9 - Major depressive disorder, single episode, unspecified (4) Hypertension Qualifiers: Hypertension type: essential hypertension Qualified Code(s): I10 - Essential (primary) hypertension (7) UTI (urinary tract infection) Qualifiers: Urinary tract infection type: site unspecified Hematuria presence: with hematuria Qualified Code(s): N39.0 - Urinary tract infection, site not specified; R31.9 - Hematuria, unspecified (9) Protein calorie malnutrition Qualifiers: Protein-calorie malnutrition severity: moderate Qualified Code(s): E44.0 - Moderate protein-calorie malnutrition
[2018-10-07] MEDS ORDERED: Potassium Phosphate 44 MEQ in 0.9 % Sodium Chloride 250 ML IVPB ONE (09:18)
[2018-10-07] MEDS: amLODIPine 5 MG TABLET PO SCH (09:24)
[2018-10-07] MEDS: cefTRIAXone 1,000 MG in Water for inj. (sterile) 10 ML IVP SCH (09:24)
[2018-10-07] MEDS: Carbidopa/Levodopa ER 50/200 TABLET PO SCH ×2 (09:25→17:52)
--- NOTE | 2018-10-07 10:02 | Urology Progress Note ---
Date of Encounter: 10/07/18 Time of Encounter: 10:00 - Assessment and Plan (1) Kidney stone on right side Current Visit: Yes Status: Acute Assessment and plan: Unfortunately the patient's nausea is not improved since the stent placement. Unlikely a urologic issue. I elected to remove the Alvarado catheter as it may be contributing to the hematuria. We will continue to watch her urine. Appreciate palliative care evaluation. We will hold off on scheduling definitive intervention for the stone until it is determined if she will improve Progress Note Narrative: Patient's nausea has not improved status post stent placement. Hematuria continues Objective Initial Vital Signs Temp Pulse Resp BP Pulse Ox 98.3 F 72 16 148/99 97 10/01/18 15:08 10/01/18 15:08 10/01/18 15:08 10/01/18 15:08 10/01/18 15:08 - Additional Exam Alvarado catheter with transparent hematuria with some small clots. Draining well - Labs 10/07/18 03:45 10/07/18 03:45 Diabetes panel 10/07/18 Range/Units 03:45 Sodium 141 (136-145) mEq/L Potassium 3.2 L (3.5-5.1) mEq/L Chloride 104 (98-107) mEq/L Carbon Dioxide 32 H (23-29) mEq/L BUN 14 (8-23) mg/dL Creatinine 0.72 (0.60-1.20) mg/dL Glucose 110 H (70-105) mg/dL Calcium 9.5 (8.6-10.3) mg/dL Calcium panel 10/07/18 Range/Units 03:45 Calcium 9.5 (8.6-10.3) mg/dL Phosphorus 2.5 L (2.7-4.5) mg/dL Pituitary panel 10/07/18 Range/Units 03:45 Sodium 141 (136-145) mEq/L Potassium 3.2 L (3.5-5.1) mEq/L Chloride 104 (98-107) mEq/L Carbon Dioxide 32 H (23-29) mEq/L BUN 14 (8-23) mg/dL Creatinine 0.72 (0.60-1.20) mg/dL Glucose 110 H (70-105) mg/dL Calcium 9.5 (8.6-10.3) mg/dL Adrenal panel 10/07/18 Range/Units 03:45 Sodium 141 (136-145) mEq/L Potassium 3.2 L (3.5-5.1) mEq/L Chloride 104 (98-107) mEq/L Carbon Dioxide 32 H (23-29) mEq/L BUN 14 (8-23) mg/dL Creatinine 0.72 (0.60-1.20) mg/dL Glucose 110 H (70-105) mg/dL Calcium 9.5 (8.6-10.3) mg/dL Consult Discharge Plan - Plan Referrals: Alessandro Vines DO [Primary Care Provider] - Holden Quevedo MD [Partnered Physician] -
[2018-10-07] MEDS ORDERED: E-Z-PAQUE (BARIUM SULF) SUSP 1 BOTTLE PO ONE (10:12)
[2018-10-07] MEDS: D5% in 0.45% NACL 1,000 ML IVC SCH (10:51)
[2018-10-07] MEDS: Morphine Sulfate 2 MG/ML SYRINGE IVP PRN (11:54)
[2018-10-07] MEDS: *HR* Rivaroxaban 10 MG TABLET PO SCH (17:52)
[2018-10-08] MEDS: Metoclopramide 10 MG/2 ML VIAL IVP SCH ×4 (00:23→17:31)
[2018-10-08] MEDS: Ondansetron 4 MG/2 ML VIAL IVP SCH ×3 (00:23→17:31)
[2018-10-08 04:16] LABS: Basophils % 0.1 %; Hemoglobin 8.8 g/dL (11.5-15.4); Immature Granulocytes % 0.4 % (0-4); Red Cell Distribution Width 14.8 % (11.5-14.5)
[2018-10-08 04:18] LABS: Eosinophils % 0.6 %; Hematocrit 27.2 % (35.3-44.9); Immature Platelets 10.2 % (1.1-6.1); Lymphocytes # 1.3 K/mcL (0.6-4.6); Lymphocytes % 17.7 %; Mean Corpuscular HGB Conc 32.4 g/dL (31.6-35.5); Mean Corpuscular Hemoglobin 26.5 pg (28.0-33.3); Mean Corpuscular Volume 81.9 fL (83.0-100.0); Mean Platelet Volume 11.5 fL (9.4-12.4); Monocytes # 0.3 K/mcL (0.0-1.3); Monocytes % 3.5 %; Neutrophils # 5.6 K/mcL (1.6-8.9); Platelet Count 77 K/mcL (140-400); Red Blood Count 3.32 M/mcL (3.82-4.97); Segmented Neutrophils % 77.7 %; White Blood Count 7.2 K/mcL (4.3-11.1)
[2018-10-08 04:30] LABS: BUN/Creatinine Ratio 19 (6-26); Blood Urea Nitrogen 12 mg/dL (8-23); Calcium 8.5 mg/dL (8.6-10.3); Carbon Dioxide 30 mEq/L (23-29); Chloride 103 mEq/L (98-107); Glucose 112 mg/dL (70-105); Magnesium 1.3 mg/dL (1.6-2.6); Osmolality,Calculated 289 (280-300); Phosphorous 3.6 mg/dL (2.7-4.5); Potassium 3.2 mEq/L (3.5-5.1); Sodium 139 mEq/L (136-145); eGFR For African Americans > 60 (> 60); eGFR For Non-African Americans > 60 (> 60)
[2018-10-08] MEDS: D5% in 0.45% NACL 1,000 ML IVC SCH ×2 (05:47→09:28)
[2018-10-08] MEDS: cefTRIAXone 1,000 MG in Water for inj. (sterile) 10 ML IVP SCH (09:03)
[2018-10-08] MEDS: Pantoprazole 40 MG VIAL IVP SCH (09:03)
[2018-10-08] MEDS: Carbidopa/Levodopa ER 50/200 TABLET PO SCH ×2 (09:04→17:31)
[2018-10-08] MEDS: amLODIPine 5 MG TABLET PO SCH (09:04)
--- NOTE | 2018-10-08 09:07 | Internal Med Progress Note ---
Hospitalist Progress Note - Encounter Date of Encounter: 10/08/18 Time of Encounter: 09:07 - Subjective Interval History: I have seen and evaluated the patient at bedside. Patient reports a headache. denies nausea, but has not been able to tolerate much of a diet. denies chest pain or shortness of breath. - Exam Vitals: Temp Pulse Resp BP Pulse Ox 98.9 F 88 15 137/79 92 10/08/18 07:01 10/08/18 07:01 10/08/18 07:01 10/08/18 07:01 10/08/18 07:01 Exam: Vitals: Reviewed General: Alert and oriented x4. In mild distress due to headache. Cardiovascular: RRR, normal S1 & S2, no rubs, murmurs or gallops. Lungs: CTA b/l, no wheezes or crackles. Abdomen: Obese, soft, non-tender, no rigidity. NABS in all 4 quadrants Extremities: No edema Neurological: No acute focal neurological abnormalities Rest of the physical exam is non contributory . - Assessment and Plan (1) Intractable nausea and vomiting Current Visit: Yes Status: Acute Assessment and Plan: Patient continues to improve. less dry heaving. patient s/p EGC and colonoscopy: unremarkable XR/XR esophagram/ barium swallow IMPRESSION: Multiple tertiary contractions within esophagus indicative of esophageal dysmotility. No evidence of a large obstructing esophageal mass. No significant hiatal hernia. Plan: - patient is already on a calcium channel lizzeth - continue PPIs 40mg/IV daily - on a clear liquid diet - Metoclopramide 10mg/IV Q6HRs yg - on Ondansetron 4mg/IV Q12HRs. - Patient is on agreement now for PEG tube placement for nutritional support. - called and discussed PEG tube placement with patient POA, she will talk to the patient and discuss risks and benefits. (2) Parkinsons disease Current Visit: Yes Status: Chronic Assessment and Plan: on her home dose of carbidopa/levodopa. (3) Depression Current Visit: Yes Status: Chronic Assessment and Plan: continue sertraline 150 mg by mouth daily. and buspirone 5mg/PO BID. (4) Hypertension Current Visit: No Status: Chronic Assessment and Plan: Blood pressure well controlled. Plan will continue current management - On amlodipine 10mg/PO daily - labetalol 5mg IV every 6 hours when necessary for systolic blood pressure more than 180. (5) Failure to thrive in adult Current Visit: Yes Status: Chronic (6) Kidney stone on right side Current Visit: Yes Status: Acute Assessment and Plan: Patient is status post cystoscopy. right retrograde pyelogram and JJ stent placement. gupta catheter was removed yesterday. patient still with cola color urine. Urology recommendations appreciated. (7) UTI (urinary tract infection) Current Visit: Yes Status: Acute Assessment and Plan: U/C: rainey-sensitive E.Coli. Blood culture: no growth to date will treat as a complicated UTI for 10-12 days Continue ceftriaxone 1gm/IV daily (8) History of DVT (deep vein thrombosis) Current Visit: Yes Status: Chronic Assessment and Plan: patient with a provoke DVT diagnosed about 3 months ago. Plan: Hold Rivaroxaban due to hematuria. (9) Protein calorie malnutrition Current Visit: Yes Status: Chronic (10) Hypomagnesemia Current Visit: Yes Status: Acute (11) Hypokalemia Current Visit: No Status: Resolved DVT Prophylaxis: patient on an oral anticoagulant held due to hematuria - Summary of Assessment and Plan Summary of Assessment and Plan: Patient to remain in the hospital for coordination of PEG tube placement. - Time Spent with Patient Total time spent is greater than 50% in coordination of care (as documented) at patient's floor/unit and/or counseling patient: Greater than 35 minutes (40) Plan of Care Discussed with: nurse Internal Medicine: Result - Labs CBC & Chem 7: 10/08/18 04:00 10/08/18 04:00 Labs: Short CBC 10/08/18 Range/Units 04:00 WBC 7.2 (4.3-11.1) K/mcL Hgb 8.8 L (11.5-15.4) g/dL Hct 27.2 L (35.3-44.9) % Plt Count 77 L (140-400) K/mcL Neutrophils # 5.6 (1.6-8.9) K/mcL BMP 10/08/18 04:00 Sodium 139 Potassium 3.2 L Chloride 103 Carbon Dioxide 30 H BUN 12 Creatinine 0.64 Glucose 112 H Calcium 8.5 L - ABG Interpretation ABG results: PT/INR, D-dimer PT 11.9 Seconds (9.4-12.1) 10/01/18 15:21 - Impressions Impressions Barium Swallow X-Ray 10/07/18 16:31 IMPRESSION: Multiple tertiary contractions within esophagus indicative of esophageal dysmotility. No evidence of a large obstructing esophageal mass. No significant hiatal hernia. D/ / 10/07/2018 12:30:06 Hugh Stover MD / sherrie Interpreting Provider: Hugh Stover MD Consult Discharge Plan - Plan Referrals: Alessandro Vines DO [Primary Care Provider] - Holden Quevedo MD [Partnered Physician] - (1) Intractable nausea and vomiting Qualifiers: Vomiting type: unspecified Qualified Code(s): R11.2 - Nausea with vomiting, unspecified (3) Depression Qualifiers: Depression Type: major depressive disorder Major depression recurrence: unspecified whether recurrent Major depression episode severity: unspecified (4) Hypertension Qualifiers: Hypertension type: essential hypertension Qualified Code(s): I10 - Essential (primary) hypertension (7) UTI (urinary tract infection) Qualifiers: Urinary tract infection type: site unspecified Hematuria presence: with hematuria Qualified Code(s): N39.0 - Urinary tract infection, site not specified; R31.9 - Hematuria, unspecified (9) Protein calorie malnutrition Qualifiers: Protein-calorie malnutrition severity: moderate Qualified Code(s): E44.0 - Moderate protein-calorie malnutrition
--- NOTE | 2018-10-08 09:08 | Urology Progress Note ---
Date of Encounter: 10/08/18 Time of Encounter: 09:06 - Assessment and Plan (1) Kidney stone on right side Current Visit: Yes Status: Acute Assessment and plan: hematuria remains and hemoglobin has drifted down. Xarelto is on the patients list and I recommend it is held if possible. normally we do not see this degree of hematuria with a ureteral stent. If continued issues may need to consider removal of the ureteral stent and/or replacement of the catheter. Progress Note Subjective: hematuria Narrative: still having some nausea. maybe a little better. voided urine remains brown Objective Initial Vital Signs Temp Pulse Resp BP Pulse Ox 98.3 F 72 16 148/99 97 10/01/18 15:08 10/01/18 15:08 10/01/18 15:08 10/01/18 15:08 10/01/18 15:08 - General physical appearance Present: chronically ill - Additional Exam no voided urine available to observe - Labs 10/08/18 04:00 10/08/18 04:00 Diabetes panel 10/08/18 Range/Units 04:00 Sodium 139 (136-145) mEq/L Potassium 3.2 L (3.5-5.1) mEq/L Chloride 103 (98-107) mEq/L Carbon Dioxide 30 H (23-29) mEq/L BUN 12 (8-23) mg/dL Creatinine 0.64 (0.60-1.20) mg/dL Glucose 112 H (70-105) mg/dL Calcium 8.5 L (8.6-10.3) mg/dL Calcium panel 10/08/18 Range/Units 04:00 Calcium 8.5 L (8.6-10.3) mg/dL Phosphorus 3.6 (2.7-4.5) mg/dL Pituitary panel 10/08/18 Range/Units 04:00 Sodium 139 (136-145) mEq/L Potassium 3.2 L (3.5-5.1) mEq/L Chloride 103 (98-107) mEq/L Carbon Dioxide 30 H (23-29) mEq/L BUN 12 (8-23) mg/dL Creatinine 0.64 (0.60-1.20) mg/dL Glucose 112 H (70-105) mg/dL Calcium 8.5 L (8.6-10.3) mg/dL Adrenal panel 10/08/18 Range/Units 04:00 Sodium 139 (136-145) mEq/L Potassium 3.2 L (3.5-5.1) mEq/L Chloride 103 (98-107) mEq/L Carbon Dioxide 30 H (23-29) mEq/L BUN 12 (8-23) mg/dL Creatinine 0.64 (0.60-1.20) mg/dL Glucose 112 H (70-105) mg/dL Calcium 8.5 L (8.6-10.3) mg/dL Consult Discharge Plan - Plan Referrals: Alessandro Vines DO [Primary Care Provider] - Holden Quevedo MD [Partnered Physician] -
[2018-10-08] MEDS: *HR* Rivaroxaban 10 MG TABLET PO SCH (17:16)
[2018-10-09] MEDS: Ondansetron 4 MG/2 ML VIAL IVP SCH ×4 (00:15→23:43)
[2018-10-09] MEDS: Metoclopramide 10 MG/2 ML VIAL IVP SCH ×5 (00:15→23:43)
[2018-10-09 06:56] LABS: Basophils % 0.2 %; Hemoglobin 8.9 g/dL (11.5-15.4); Immature Granulocytes % 0.5 % (0-4)
[2018-10-09 06:58] LABS: Eosinophils # 0.1 K/mcL (0.0-0.6); Eosinophils % 1.1 %; Hematocrit 27.5 % (35.3-44.9); Immature Platelets 11.5 % (1.1-6.1); Lymphocytes # 1.5 K/mcL (0.6-4.6); Lymphocytes % 23.8 %; Mean Corpuscular HGB Conc 32.4 g/dL (31.6-35.5); Mean Corpuscular Hemoglobin 26.4 pg (28.0-33.3); Mean Corpuscular Volume 81.6 fL (83.0-100.0); Mean Platelet Volume 10.7 fL (9.4-12.4); Monocytes # 0.3 K/mcL (0.0-1.3); Monocytes % 4.6 %; Neutrophils # 4.4 K/mcL (1.6-8.9); Red Blood Count 3.37 M/mcL (3.82-4.97); Red Cell Distribution Width 14.2 % (11.5-14.5); Segmented Neutrophils % 69.8 %; White Blood Count 6.3 K/mcL (4.3-11.1)
[2018-10-09 06:59] LABS: Platelet Count 87 K/mcL (140-400)
[2018-10-09 07:18] LABS: BUN/Creatinine Ratio 13 (6-26); Blood Urea Nitrogen 8 mg/dL (8-23); Calcium 8.5 mg/dL (8.6-10.3); Carbon Dioxide 30 mEq/L (23-29); Chloride 97 mEq/L (98-107); Glucose 101 mg/dL (70-105); Magnesium 1.5 mg/dL (1.6-2.6); Osmolality,Calculated 278 (280-300); Phosphorous 2.1 mg/dL (2.7-4.5); Potassium 3.2 mEq/L (3.5-5.1); Sodium 135 mEq/L (136-145); eGFR For African Americans > 60 (> 60); eGFR For Non-African Americans > 60 (> 60)
[2018-10-09] MEDS ORDERED: Potassium Phosphate 44 MEQ in 0.9 % Sodium Chloride 250 ML IVPB ONE (07:49)
[2018-10-09] MEDS: Carbidopa/Levodopa ER 50/200 TABLET PO SCH ×2 (07:59→16:50)
[2018-10-09] MEDS: amLODIPine 5 MG TABLET PO SCH (07:59)
[2018-10-09] MEDS: cefTRIAXone 1,000 MG in Water for inj. (sterile) 10 ML IVP SCH (07:59)
[2018-10-09] MEDS: Pantoprazole 40 MG VIAL IVP SCH (08:01)
--- NOTE | 2018-10-09 09:00 | Urology Progress Note ---
<Rubia Shaffer N - Last Filed: 10/09/18 08:57> Date of Encounter: 10/09/18 Time of Encounter: 08:15 - Assessment and Plan (1) Kidney stone on right side Current Visit: Yes Status: Acute Assessment and plan: Patient is a 78-year-old female who presents 6 days status post cystoscopy, right retrograde pyelogram and right ureteral stent placement. We discussed postoperative expectations with indwelling ureteral stent, and patient verbalized understanding. I discussed staged stone extraction with patient and her granddaughters. Patient is possibly receiving a PEG tube today, and pending her overall health status and outcome in the upcoming weeks, they will decide to proceed or hold on stone extraction. (2) UTI (urinary tract infection) Current Visit: Yes Status: Acute Assessment and plan: Patient is a 78-year-old female who presents with a pansensitive Escherichia coli urinary tract infection. Vital signs are stable and afebrile. Renal function is reassuring. Patient is receiving IV Rocephin. Urology recommends an additional 10-14 day course of sensitive oral antibiotics upon discharge. Qualifiers: Urinary tract infection type: site unspecified Hematuria presence: with hematuria Qualified Code(s): N39.0 - Urinary tract infection, site not specified; R31.9 - Hematuria, unspecified Progress Note Narrative: POD #6. Patient seen and examined sitting upright in bed in no apparent distress. Patient reports continued nausea and vomiting. Patient states flank pain and gross hematuria is improved, and she is voiding well without difficulty. Patient's granddaughters are bedside. Objective Initial Vital Signs Temp Pulse Resp BP Pulse Ox 98.3 F 72 16 148/99 97 10/01/18 15:08 10/01/18 15:08 10/01/18 15:08 10/01/18 15:08 10/01/18 15:08 - General physical appearance Present: no distress, no pain - Respiratory Present: normal expansion, normal respiratory effort - Abdomen Present: soft, non tender. Absent: distended - Integumentary Present: no rash, no abnormal pigmentation - Musculoskeletal Present: normal posture - Psychiatric Present: oriented to time, oriented to person, oriented to place, memory intact. Absent: speech is normal ([place]) - Labs 10/09/18 06:21 10/09/18 06:21 Diabetes panel 10/09/18 Range/Units 06:21 Sodium 135 L (136-145) mEq/L Potassium 3.2 L (3.5-5.1) mEq/L Chloride 97 L (98-107) mEq/L Carbon Dioxide 30 H (23-29) mEq/L BUN 8 (8-23) mg/dL Creatinine 0.60 (0.60-1.20) mg/dL Glucose 101 (70-105) mg/dL Calcium 8.5 L (8.6-10.3) mg/dL Calcium panel 10/09/18 Range/Units 06:21 Calcium 8.5 L (8.6-10.3) mg/dL Phosphorus 2.1 L (2.7-4.5) mg/dL Pituitary panel 10/09/18 Range/Units 06:21 Sodium 135 L (136-145) mEq/L Potassium 3.2 L (3.5-5.1) mEq/L Chloride 97 L (98-107) mEq/L Carbon Dioxide 30 H (23-29) mEq/L BUN 8 (8-23) mg/dL Creatinine 0.60 (0.60-1.20) mg/dL Glucose 101 (70-105) mg/dL Calcium 8.5 L (8.6-10.3) mg/dL Adrenal panel 10/09/18 Range/Units 06:21 Sodium 135 L (136-145) mEq/L Potassium 3.2 L (3.5-5.1) mEq/L Chloride 97 L (98-107) mEq/L Carbon Dioxide 30 H (23-29) mEq/L BUN 8 (8-23) mg/dL Creatinine 0.60 (0.60-1.20) mg/dL Glucose 101 (70-105) mg/dL Calcium 8.5 L (8.6-10.3) mg/dL Consult Discharge Plan - Plan Referrals: Alessandro Vines DO [Primary Care Provider] - Holden Quevedo MD [Partnered Physician] - <Holden Quevedo - Last Filed: 10/10/18 19:06> Date of Encounter: 10/10/18 - Assessment and Plan (1) Kidney stone on right side Current Visit: Yes Status: Acute Assessment and plan: agree with PA assessment and plan. She was not personally seen by on this date. Objective Initial Vital Signs Temp Pulse Resp BP Pulse Ox 98.3 F 72 16 148/99 97 10/01/18 15:08 10/01/18 15:08 10/01/18 15:08 10/01/18 15:08 10/01/18 15:08 - Labs 10/09/18 06:21 10/09/18 06:21
[2018-10-09] MEDS: Morphine Sulfate 2 MG/ML SYRINGE IVP PRN (09:37)
[2018-10-09] MEDS: D5% in 0.45% NACL 1,000 ML IVC SCH (10:52)
--- NOTE | 2018-10-09 11:24 | Internal Med Progress Note ---
Hospitalist Progress Note - Encounter Date of Encounter: 10/09/18 Time of Encounter: 11:19 - Subjective Interval History: I have seen and evaluated the patient at bedside. As per patient's POA the patient has tolerated some oral diet this morning without nausea, vomiting or regurgitation. Patient reports chronic lower back pain, denies chest pain or shortness of breath. - Exam Vitals: Temp Pulse Resp BP Pulse Ox 98.4 F 76 16 127/76 95 10/09/18 07:54 10/09/18 07:54 10/09/18 07:54 10/09/18 07:54 10/09/18 07:54 Exam: Vitals: Reviewed General: Alert and oriented x4. In mild distress due to nausea. Cardiovascular: RRR, normal S1 & S2, no rubs, murmurs or gallops. Lungs: CTA b/l, no wheezes or crackles. Abdomen: Obese, soft, non-tender, no rigidity. Extremities: No edema Neurological: No acute focal neurological abnormalities Rest of the physical exam is non contributory . - Assessment and Plan (1) Intractable nausea and vomiting Current Visit: Yes Status: Acute Assessment and Plan: Patient tolerated some oral, clear liquid diet today. without vomiting. patient s/p EGC and colonoscopy: unremarkable Plan: - I discussed with patient's POA at bedside benefits and risks for placement of a PEG tube. They want to pursue PEG tube placement for nutritional support as the patient is minimally toleration any diet. - GI has been called for evaluation of PEG tube placement. - PPIs 40mg/IV daily - on a clear liquid diet - Continue Metoclopramide 10mg/IV Q6HRs yg - on Ondansetron 4mg/IV Q12HRs. (2) Parkinsons disease Current Visit: Yes Status: Chronic Assessment and Plan: on Carbidopa/levodopa. (3) Depression Current Visit: Yes Status: Chronic Assessment and Plan: On sertraline 150 mg by mouth daily. and buspirone 5mg/PO BID. (4) Hypertension Current Visit: No Status: Chronic Assessment and Plan: Blood pressure well controlled. On amlodipine 10mg/PO daily - labetalol 5mg IV every 6 hours when necessary for systolic blood pressure more than 180. (5) Failure to thrive in adult Current Visit: Yes Status: Chronic (6) Kidney stone on right side Current Visit: Yes Status: Acute Assessment and Plan: Patient is status post cystoscopy. right retrograde pyelogram and JJ stent placement. Per nursing report patient continues to have cola color urine. Urology recommendations appreciated. (7) UTI (urinary tract infection) Current Visit: Yes Status: Acute Assessment and Plan: U/C: rainey-sensitive E.Coli. Blood culture: no growth to date Plan - On ceftriaxone 1gm/IV daily (8) History of DVT (deep vein thrombosis) Current Visit: Yes Status: Chronic Assessment and Plan: patient with a provoke DVT diagnosed about 3 months ago. Plan: Rivaroxaban held due to hematuria. (9) Protein calorie malnutrition Current Visit: Yes Status: Chronic (10) Hypomagnesemia Current Visit: Yes Status: Acute Assessment and Plan: electrolyte replaced (11) Hypokalemia Current Visit: No Status: Resolved Assessment and Plan: as above (12) Hypophosphatemia Current Visit: Yes Status: Acute Assessment and Plan: electrolyte replaced DVT Prophylaxis: No chemical DVT prophylaxis due to hematuria. No mechanical dvt prophylaxis due to DVT within the past 3 months. - Summary of Assessment and Plan Summary of Assessment and Plan: patient to remain in the hospital due to hematuria. and PEG tube placement. - Time Spent with Patient Total time spent is greater than 50% in coordination of care (as documented) at patient's floor/unit and/or counseling patient: Greater than 35 minutes (45) Plan of Care Discussed with: patient (the nurse, and patient's POA) Internal Medicine: Result - Labs CBC & Chem 7: 10/09/18 06:21 10/09/18 06:21 Labs: Short CBC 10/09/18 Range/Units 06:21 WBC 6.3 (4.3-11.1) K/mcL Hgb 8.9 L (11.5-15.4) g/dL Hct 27.5 L (35.3-44.9) % Plt Count 87 L (140-400) K/mcL Neutrophils # 4.4 (1.6-8.9) K/mcL BMP 10/09/18 06:21 Sodium 135 L Potassium 3.2 L Chloride 97 L Carbon Dioxide 30 H BUN 8 Creatinine 0.60 Glucose 101 Calcium 8.5 L - ABG Interpretation ABG results: PT/INR, D-dimer PT 11.9 Seconds (9.4-12.1) 10/01/18 15:21 - Impressions Impressions Videofluoroscopic Swallow 10/06/18 09:53 IMPRESSION: Limited exam due to severe nausea without penetration or aspiration observed. Please see separate speech pathology report for full discussion of findings and recommendations. D/ / 10/06/2018 15:55:52 Keny Hoffman MD / jc Interpreting Provider: Keny Hoffman MD Barium Swallow X-Ray 10/07/18 16:31 IMPRESSION: 1. Multiple tertiary contractions within esophagus indicative of esophageal dysmotility. 2. No evidence of large obstructing esophageal mass. 3. No significant hiatal hernia. D/ / 10/07/2018 12:30:06 Hugh Stover MD / sherrie Interpreting Provider: Hugh Stover MD Consult Discharge Plan - Plan Referrals: Alessandro Vines DO [Primary Care Provider] - Holden Quevedo MD [Partnered Physician] - (1) Intractable nausea and vomiting Qualifiers: Vomiting type: unspecified Qualified Code(s): R11.2 - Nausea with vomiting, unspecified (3) Depression Qualifiers: Depression Type: major depressive disorder Major depression recurrence: unspecified whether recurrent Major depression episode severity: unspecified (4) Hypertension Qualifiers: Hypertension type: essential hypertension Qualified Code(s): I10 - Essential (primary) hypertension (7) UTI (urinary tract infection) Qualifiers: Urinary tract infection type: site unspecified Hematuria presence: with hematuria Qualified Code(s): N39.0 - Urinary tract infection, site not specified; R31.9 - Hematuria, unspecified (9) Protein calorie malnutrition Qualifiers: Protein-calorie malnutrition severity: moderate Qualified Code(s): E44.0 - Moderate protein-calorie malnutrition
[2018-10-09] MEDS ORDERED: Thiamine (B-1) 100 MG, Folic Acid 1 MG, MVI, adult with vitamin K 10 ML in 0.9 % Sodi... IVPB ONE (13:00)
--- NOTE | 2018-10-09 13:54 | Event Note ---
Date of Encounter: 10/09/18 Time of Encounter: 10:30 Discussed with patient and granddaughter, MIMIPrema this am. Over the weekend, patient had changed her mind and decided on a PEG tube. Granddaughter at bedside states that this am, patient seemed confused. I spoke with pt, who is alert and oriented to person and place, and can tell me she is here because of the persistent vomiting. I discussed with her that she cannot survive long without nutrition, and she has lost over 30 lbs since May. Discussed pros/cons of PEG. Patient was able to repeat this information back to me. She did state that she wanted to proceed with the feeding tube. POA in agreement. POA asked about d/c plan. Told her I was not sure that patient would have a skilled need, and may end up private pay. Discussed that I am unsure with a PEG if hospice would reenroll or not - once she is discharged, SUYAPA could contact [facility] and have them re-evaluate. She verbalized understanding.
--- NOTE | 2018-10-09 20:43 | Anesthesia Evaluation PreOp ---
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, parkinson's, depression), Other (dysarthria, parkinson's, depression) Other Medical History: GERD, Other (Thrombocytopenia, Hypomagnasemia, Hypophosphotemia) Anesthesia History: No Prior Anesthetic Complications, Past Anesthesia (EGD) : No Alcohol Use: none Drug use: none Medications and Allergies Amlodipine Besylate 10 mg PO DAILY 04/06/17 [History] Atorvastatin [Lipitor] 40 mg PO HS 04/06/17 [History] Carbidopa/Levodopa ER 50/200 [Sinemet ER 50-200 Tab] 1 tab PO BID 04/06/17 [History] Sertraline [Zoloft] 100 mg PO DAILY 04/06/17 [History] Bethanechol [Urecholine] 25 mg PO BID 04/18/18 [History] Gabapentin [Neurontin] 300 mg PO BID 04/18/18 [History] Buspirone HCl [Buspar] 5 mg PO BID 06/24/18 [History] Lansoprazole [Prevacid] 30 mg PO DAILY 06/24/18 [History] Rivaroxaban [Xarelto] 15 mg PO BID #60 tablet 06/26/18 [Rx] Ondansetron [Zofran ODT] 8 mg SL Q4HR 10/01/18 [History] Oxybutynin [Ditropan] 5 mg PO BID 10/01/18 [History] Promethazine [Phenergan] 25 mg RC Q6H 10/01/18 [History] Tramadol HCl [Ultram] 50 mg PO Q4H PRN 10/01/18 [History] Sertraline [Zoloft] 50 mg PO DAILY 10/02/18 [History] Sucralfate [Carafate] 1 gm PO DAILY 10/02/18 [History] Allergy/AdvReac Type Severity Reaction Status Date / Time Sulfa (Sulfonamide Allergy Hives Verified 10/02/18 23:40 Antibiotics) - Meds/Allergy Pre-op Review Medications Reviewed: Yes Allergies Reviewed: Yes Beta Blockers on Current Med List: No Anesthesia Results - Labs 10/09/18 06:21 10/09/18 06:21 - Imaging EKG: report reviewed (Sinus arrhythmia Incomplete right bundle branch block Electronically Signed On 10-03-2018 13:59:47 EDT by Johnathon Hartman) Anesthesia Exam Vital Signs/O2 Sat, Most Current Temp Pulse Resp BP Pulse Ox 98.2 F 70 15 101/63 96 10/09/18 18:54 10/09/18 18:54 10/09/18 18:54 10/09/18 19:36 10/09/18 18:54 NPO (# of Hours): > 8 hrs Pain Scale: 0 Pain Scale Used: Numeric (1 - 10) - HEENT Pupil (Motor): Pupils equal, EOMI Mallampati: II Teeth: Edentulous Oral Opening: Greater than 3 - [employer]OR OF [employer] LOC: Oriented [employer]OR [employer] Motor: Normal RUE, Normal LUE, Normal RLE, Normal LLE, Normal Face DIRECTOR [employer] Sensory: Normal: RUE, LUE, RLE, LLE, Face - Cardiac Rhythm: Regular Murmur: None JVD: No Carotid Bruit: No - Pulmonary Breath Sounds: bilateral Clear Respiratory Effort: Symmetrical Anesthesia Assess/Plan ASA Score: 4 Level of consciousness: Cooperative Anesthetic Plan: MAC Autologous Blood: Yes Monitoring Plan: Standard Monitors Recovery Plan: Other
[2018-10-10] MEDS: Metoclopramide 10 MG/2 ML VIAL IVP SCH ×4 (05:55→23:41)
[2018-10-10] MEDS: D5% in 0.45% NACL 1,000 ML IVC SCH (07:00)
--- NOTE | 2018-10-10 08:36 | Urology Progress Note ---
<Rubia Shaffer N - Last Filed: 10/10/18 08:34> Date of Encounter: 10/10/18 Time of Encounter: 08:20 - Assessment and Plan (1) Kidney stone on right side Current Visit: Yes Status: Acute Assessment and plan: Patient is a 78-year-old female who presents 7 days status post cystoscopy, right retrograde pyelogram and right ureteral stent placement. Patient is planning PEG tube placement later this afternoon, as she continues with intractable nausea and vomiting. Patient is aware that she will require a staged stone extraction procedure when her overall condition improves. Patient is also aware the indwelling ureteral stent may remain in place for up to 6 months. We will continue to follow patient and arrange for outpatient follow-up as well. (2) UTI (urinary tract infection) Current Visit: Yes Status: Acute Assessment and plan: Patient is a 78-year-old female who presents with a pansensitive Escherichia col i urinary tract infection. Patient has been placed on IV Rocephin, and vital signs are stable and afebrile. White blood cell count and renal function remain reassuring. Urology recommends an additional 10 days of oral culture sensitive antibiotics upon discharge. Qualifiers: Urinary tract infection type: site unspecified Hematuria presence: with hematuria Qualified Code(s): N39.0 - Urinary tract infection, site not specified; R31.9 - Hematuria, unspecified Progress Note Subjective: no new complaints Narrative: POD #7. Patient seen and examined lying in bed in no apparent distress. Patient has been placed nothing by mouth, and she is anticipating PEG tube placement this afternoon. Patient admits to continued nausea, but she denies an y flank pain, fever, chills gross hematuria. Objective Initial Vital Signs Temp Pulse Resp BP Pulse Ox 98.3 F 72 16 148/99 97 10/01/18 15:08 10/01/18 15:08 10/01/18 15:08 10/01/18 15:08 10/01/18 15:08 - General physical appearance Present: no distress, no pain - Respiratory Present: normal expansion, normal respiratory effort - Abdomen Present: soft, non tender. Absent: distended - Integumentary Present: no rash, no abnormal pigmentation - Musculoskeletal Present: normal posture - Psychiatric Present: oriented to time, oriented to person, oriented to place, speech is nor mal, memory intact - Labs 10/09/18 06:21 10/09/18 06:21 Consult Discharge Plan - Plan Referrals: Alessandro Vines DO [Primary Care Provider] - Holden Quevedo MD [Partnered Physician] - <Holden Quevedo - Last Filed: 10/10/18 19:03> Date of Encounter: 10/10/18 - Assessment and Plan (1) Kidney stone on right side Current Visit: Yes Status: Acute Assessment and plan: agree with PA assessment and plan. She was not personally seen by MD on this date. Objective Initial Vital Signs Temp Pulse Resp BP Pulse Ox 98.3 F 72 16 148/99 97 10/01/18 15:08 10/01/18 15:08 10/01/18 15:08 10/01/18 15:08 10/01/18 15:08 - Labs 10/09/18 06:21 10/09/18 06:21
[2018-10-10] MEDS: Ondansetron 4 MG/2 ML VIAL IVP SCH ×3 (08:49→23:41)
[2018-10-10] MEDS: amLODIPine 5 MG TABLET PO SCH (08:51)
[2018-10-10] MEDS: Carbidopa/Levodopa ER 50/200 TABLET PO SCH ×2 (08:51→16:52)
[2018-10-10] MEDS: cefTRIAXone 1,000 MG in Water for inj. (sterile) 10 ML IVP SCH (08:52)
[2018-10-10] MEDS: Pantoprazole 40 MG VIAL IVP SCH (08:55)
[2018-10-10] MEDS ORDERED: Propofol 500 MG/50 ML INFUS..BTL ONE (14:54)
[2018-10-10] MEDS ORDERED: *HR* PHENYLEPHRINE 1,000 MCG/10 ML SYRINGE IVP ONE (15:05)
--- NOTE | 2018-10-10 21:20 | Internal Med Progress Note ---
Hospitalist Progress Note - Encounter Date of Encounter: 10/10/18 Time of Encounter: 09:30 - Subjective Interval History: Ms Hensley reports persistent nausea. She does reports at the [facility] and attributes her orbital nd frontal ecchymosis to the fall GEN: Denies fever, chills or malaise HEENT: Denies headache blurriness, or dysphagia RESP: Denies SOB or cough CV: Denies chest pain or palpitations GI: admits to Nausea, denies vomiting, diarrhea or constipation Reviewed current in hospital medications with modifications see orders Reviewed Routine labs - Exam Vitals: Temp Pulse Resp BP Pulse Ox 98.4 F 73 15 100/63 93 10/10/18 19:21 10/10/18 19:21 10/10/18 19:21 10/10/18 19:21 10/10/18 19:21 Exam: GEN: NAD, A&O x 3, Pleasant and conversant SKIN: [place] warm acyanotic not jaundice, however multiple ecchymosis noted inferior to the lower margins of the right orbit, right frontal aspect of her skull and neck HEART: RRR, no murmurs LUNGS: CTA no wheeze or crackles, overall non labored ABDOMEN; Soft, non tender or distended, BS x 4 normactive EXT: No LE edema, Pedal pulses 1+, radial pulses 2+ PSYCH: Mood and affect is appropriate - Assessment and Plan (1) Failure to thrive in adult Current Visit: Yes Status: Chronic Assessment and Plan: Nutrition consult. Discussion about PEG tube (2) Intractable nausea and vomiting Current Visit: Yes Status: Acute Assessment and Plan: Complaining of persistent nausea EGD and colonoscopy: unremarkable Prior progress notes. Patient family want to pursue PEG tube placement for nutritional support as the patient is minimally toleration any diet. - GI has been called for evaluation of PEG tube placement. - PPIs 40mg/IV daily - on a clear liquid diet - Continue Metoclopramide 10mg/IV Q6HRs yg - on Ondansetron 4mg/IV Q12HRs. (3) Hypokalemia Current Visit: No Status: Resolved Assessment and Plan: Likely secondary from her poor oral intake potassium is 3.2 today. Supplement Intravenously (4) Hypertension Current Visit: No Status: Chronic Assessment and Plan: Normotensive although lower for age (5) Parkinsons disease Current Visit: Yes Status: Chronic Assessment and Plan: on Carbidopa/levodopa. (6) Depression Current Visit: Yes Status: Chronic Assessment and Plan: On sertraline 150 mg by mouth daily. and buspirone 5mg/PO BID. (7) Kidney stone on right side Current Visit: Yes Status: Acute Assessment and Plan: Patient is status post cystoscopy. right retrograde pyelogram and JJ stent placement. Per nursing report patient continues to have cola color urine. Urology recommendations appreciated. (8) UTI (urinary tract infection) Current Visit: Yes Status: Acute Assessment and Plan: U/C: rainey-sensitive E.Coli. Blood culture: no growth to date Plan - On ceftriaxone 1gm/IV daily, had 5 days will discontinue (9) History of DVT (deep vein thrombosis) Current Visit: Yes Status: Chronic (10) Protein calorie malnutrition Current Visit: Yes Status: Chronic (11) Hypomagnesemia Current Visit: Yes Status: Acute Assessment and Plan: electrolyte replaced IV (12) Hypophosphatemia Current Visit: Yes Status: Acute Assessment and Plan: Evidence of poor nutritional status and suspected to improve his nutrition improved DVT Prophylaxis: On xarelto - Time Spent with Patient Total time spent is greater than 50% in coordination of care (as documented) at patient's floor/unit and/or counseling patient: Internal Medicine: Result - Labs CBC & Chem 7: 10/09/18 06:21 10/09/18 06:21 - ABG Interpretation ABG results: PT/INR, D-dimer PT 11.9 Seconds (9.4-12.1) 10/01/18 15:21 Consult Discharge Plan - Plan Referrals: Alessandro Vines DO [Primary Care Provider] - Holden Quevedo MD [Partnered Physician] - (2) Intractable nausea and vomiting Qualifiers: Vomiting type: unspecified Qualified Code(s): R11.2 - Nausea with vomiting, unspecified (4) Hypertension Qualifiers: Hypertension type: essential hypertension Qualified Code(s): I10 - Essential (primary) hypertension (6) Depression Qualifiers: Depression Type: major depressive disorder Major depression recurrence: unspecified whether recurrent Major depression episode severity: unspecified (8) UTI (urinary tract infection) Qualifiers: Urinary tract infection type: site unspecified Hematuria presence: with hematuria Qualified Code(s): N39.0 - Urinary tract infection, site not specified; R31.9 - Hematuria, unspecified (10) Protein calorie malnutrition Qualifiers: Protein-calorie malnutrition severity: moderate Qualified Code(s): E44.0 - Moderate protein-calorie malnutrition
[2018-10-11] MEDS: Metoclopramide 10 MG/2 ML VIAL IVP SCH ×2 (05:49→11:12)
[2018-10-11] MEDS: D5% in 0.45% NACL 1,000 ML IVC SCH (05:49)
[2018-10-11] MEDS: Ondansetron 4 MG/2 ML VIAL IVP SCH ×2 (08:18→17:01)
[2018-10-11] MEDS: Carbidopa/Levodopa ER 50/200 TABLET PO SCH ×2 (08:18→17:01)
[2018-10-11] MEDS: amLODIPine 5 MG TABLET PO SCH (08:18)
[2018-10-11] MEDS: Pantoprazole 40 MG VIAL IVP SCH (08:18)
[2018-10-11 09:44] LABS: Basophils % 0.2 %; Eosinophils # 0.1 K/mcL (0.0-0.6); Eosinophils % 2.1 %; Hematocrit 25.1 % (35.3-44.9); Hemoglobin 8.4 g/dL (11.5-15.4); Immature Granulocytes % 0.9 % (0-4); Lymphocytes # 1.5 K/mcL (0.6-4.6); Lymphocytes % 24.8 %; Mean Corpuscular HGB Conc 33.5 g/dL (31.6-35.5); Mean Corpuscular Hemoglobin 26.9 pg (28.0-33.3); Mean Corpuscular Volume 80.4 fL (83.0-100.0); Mean Platelet Volume 10.4 fL (9.4-12.4); Monocytes # 0.5 K/mcL (0.0-1.3); Monocytes % 8.4 %; Neutrophils # 3.7 K/mcL (1.6-8.9); Platelet Count 130 K/mcL (140-400); Red Blood Count 3.12 M/mcL (3.82-4.97); Red Cell Distribution Width 14.5 % (11.5-14.5); Segmented Neutrophils % 63.6 %; White Blood Count 5.9 K/mcL (4.3-11.1)
[2018-10-11 10:20] LABS: BUN/Creatinine Ratio 8 (6-26); Blood Urea Nitrogen 5 mg/dL (8-23); Calcium 8.3 mg/dL (8.6-10.3); Carbon Dioxide 28 mEq/L (23-29); Chloride 103 mEq/L (98-107); Glucose 92 mg/dL (70-105); Magnesium 2.1 mg/dL (1.6-2.6); Osmolality,Calculated 279 (280-300); Potassium 2.9 mEq/L (3.5-5.1); Sodium 136 mEq/L (136-145); eGFR For African Americans > 60 (> 60); eGFR For Non-African Americans > 60 (> 60)
--- NOTE | 2018-10-11 10:44 | Event Note ---
Date of Encounter: 10/11/18 Time of Encounter: 10:40 Patient awake and alert. Discussed with her that PEG unable to be placed,and likely surgeon will be seeing her eventually to discuss. Spoke with granddaughter Candace (POPrema) as well. Patient has no complaints other than her weakness this am. Palliative will be following patient from a distance.
[2018-10-11] MEDS: Morphine Sulfate 2 MG/ML SYRINGE IVP PRN (11:16)
--- NOTE | 2018-10-11 12:55 | AcuteCare Surgery Consult Note ---
<Sonya Sierra A - Last Filed: 10/11/18 12:48> Date of Encounter: 10/11/18 Time of Encounter: 12:00 Assessment and Plan (1) Intractable nausea and vomiting Current Visit: Yes Status: Acute Little to no improvement noted with Reglan, PPI therapy, Antiemetic and Carafate Etiology unclear Recommend gastric emptying study as well as SBFT for further investigation Consider dobhoff placement for feeding pending further work-up Surgery will continue to follow for recommendations (2) Failure to thrive in adult Current Visit: Yes Status: Chronic Little to no improvement noted with Reglan, PPI therapy, Antiemetic and Carafate Etiology unclear Recommend gastric emptying study as well as SBFT for further investigation Consider dobhoff placement for feeding pending further work-up Surgery will continue to follow for recommendations (3) Protein calorie malnutrition Current Visit: Yes Status: Chronic Consider dobhoff placement for feeding pending further work-up (4) Parkinsons disease Current Visit: Yes Status: Chronic (5) UTI (urinary tract infection) Current Visit: No Status: Resolved Management per medicine service (6) Kidney stone on right side Current Visit: Yes Status: Acute s/p cystoscopy, right retrograde pyelogram and JJ stent placement Urology following History of Present Illness Consult date: 10/11/18 Reason for consult: other (Nausea/Vomiting; Failure to Thrive) Requesting physician: Patricia Sharp History of present illness: Ms. Hensley is a 78 year old female with a past medical history significant for HTN, HLD, CVA, Depression/Anxiety, Dysphagia, DVT, PFO closure, Sleep apnea, GERD, Parkinsons Disease and unexplained N/V with weight loss. The patient is currently enrolled in hospice with a diagnosis of CVA and Parkinsons Disease. She is alert and oriented and is able to answer my questions appropriately during my evaluation. She has a history of nausea and vomiting for the past several months and her symptoms have increased over the past few weeks. She has had a reported weight loss of 30 pounds since May. Her family reports that she has difficulty with keeping solids and liquids down. Denies any hematemesis of coffee ground emesis. Gastroenterology was initially consulted and have completed an EGD and Flexible sigmoidoscopy. EGD revealed severe reflux esophagitis as well as gastritis. Flexible sigmoidoscopy revealed rectal inflammation and external hemorrhoids. The patient has had an attempted peg tube placement per Dr. Auguste. The procedure was unsuccessful due to the stomach being completely subcostal. The patient is s/p a barium swallow which was limited due to the patient having severe nausea. No penetration of aspiration was observed. The patient has been treated with PPI therapy, antiemetics and carafate with little to no relief in her symptoms. We have been asked to see and evaluate the patient for further recommedations. The patient has also been treated for a kidney stone and UTI during this admission. She is s/p cystoscopy, right retrograde pyelogram and JJ stent placement with urology. She is currently on IV antibiotics for treatment of UTI. Past Med Surg Social Fam HX - Past Medical History Source: old records reviewed Medical history: coronary artery disease, CVA (hemorrhagic), DVT, GERD, hyperlipidemia, hypertension Additional medical history: Parkinson's Disease, PFO closure Psychiatric history: anxiety, depression - Past Surgical History Surgical History: cholecystectomy Additional surgical history: Tonsillectomy, PFO closure, Right hand surgery, Isamar filter placement - Social History Smoking Status: Never smoker Smokeless Tobacco Status: No Alcohol use: none Drug use: none Current living situation: With Family (Hospice) - Family History Mother Hx Family Cardiac Disorders: Yes Father Hx Family Cardiac Disorders: Yes Medications and Allergies Amlodipine Besylate 10 mg PO DAILY 04/06/17 [History] Atorvastatin [Lipitor] 40 mg PO HS 04/06/17 [History] Carbidopa/Levodopa ER 50/200 [Sinemet ER 50-200 Tab] 1 tab PO BID 04/06/17 [History] Sertraline [Zoloft] 100 mg PO DAILY 04/06/17 [History] Bethanechol [Urecholine] 25 mg PO BID 04/18/18 [History] Gabapentin [Neurontin] 300 mg PO BID 04/18/18 [History] Buspirone HCl [Buspar] 5 mg PO BID 06/24/18 [History] Lansoprazole [Prevacid] 30 mg PO DAILY 06/24/18 [History] Rivaroxaban [Xarelto] 15 mg PO BID #60 tablet 06/26/18 [Rx] Ondansetron [Zofran ODT] 8 mg SL Q4HR 10/01/18 [History] Oxybutynin [Ditropan] 5 mg PO BID 10/01/18 [History] Promethazine [Phenergan] 25 mg RC Q6H 10/01/18 [History] Tramadol HCl [Ultram] 50 mg PO Q4H PRN 10/01/18 [History] Sertraline [Zoloft] 50 mg PO DAILY 10/02/18 [History] Sucralfate [Carafate] 1 gm PO DAILY 10/02/18 [History] Allergy/AdvReac Type Severity Reaction Status Date / Time Sulfa (Sulfonamide Allergy Hives Verified 10/02/18 23:40 Antibiotics) Review of Systems All systems PM: reviewed and no additional remarkable complaints except as stated (in the HPI) All systems PM: The remainder of the systems were reviewed and are negative General Surgery Exam Initial Vital Signs Temp Pulse Resp BP Pulse Ox 98.3 F 72 16 148/99 97 10/01/18 15:08 10/01/18 15:08 10/01/18 15:08 10/01/18 15:08 10/01/18 15:08 - General physical appearance well developed, no distress, no pain, chronically ill - Eyes PERRL, normal ocular movement - ENT dry mucosa, atraumatic, normocephalic - Neck trachea midline - Respiratory normal respiratory effort, clear to auscultation, other (diminished bibasilar bases) - Cardiovascular Cardiovascular exam: Present: RRR - Abdomen Abdomen general surgery: Present: bowel sounds present, soft, non tender - Neurologic Present: CN 2-12 grossly intact - Musculoskeletal Present: other (physical deconditioning noted) - Psychiatric Psychiatric general surgery: Present: appropriate, oriented to person, oriented to place, oriented to time Exam Initial Vital Signs Temp Pulse Resp BP Pulse Ox 98.3 F 72 16 148/99 97 10/01/18 15:08 10/01/18 15:08 10/01/18 15:08 10/01/18 15:08 10/01/18 15:08 Results - Labs 10/11/18 09:32 10/11/18 09:32 Abnormal lab results RBC 3.12 M/mcL (3.82-4.97) L 10/11/18 09:32 Hgb 8.4 g/dL (11.5-15.4) L 10/11/18 09:32 Hct 25.1 % (35.3-44.9) L 10/11/18 09:32 MCV 80.4 fL (83.0-100.0) L 10/11/18 09:32 MCH 26.9 pg (28.0-33.3) L 10/11/18 09:32 RDW 14.8 % (11.5-14.5) H 10/08/18 04:00 Plt Count 130 K/mcL (140-400) L 10/11/18 09:32 Immature Plt Fraction 11.5 % (1.1-6.1) H 10/09/18 06:21 Sodium 135 mEq/L (136-145) L 10/09/18 06:21 Potassium 2.9 mEq/L (3.5-5.1) L 10/11/18 09:32 Chloride 97 mEq/L (98-107) L 10/09/18 06:21 Carbon Dioxide 30 mEq/L (23-29) H 10/09/18 06:21 BUN 5 mg/dL (8-23) L 10/11/18 09:32 Glucose 112 mg/dL (70-105) H 10/08/18 04:00 POC Glucose 100 mg/dL (70-99) H 10/08/18 17:02 Calculated Osmolality 279 (280-300) L 10/11/18 09:32 Calcium 8.3 mg/dL (8.6-10.3) L 10/11/18 09:32 Phosphorus 2.6 mg/dL (2.7-4.5) L 10/11/18 09:32 Magnesium 1.5 mg/dL (1.6-2.6) L 10/09/18 06:21 ALT 3 Units/L (7-52) L 10/01/18 15:21 Urine Clarity Cloudy (Clear) A 10/01/18 15:43 Urine Ketones 15 mg/dL (Negative) H 10/01/18 15:43 Urine Blood Large (Negative) H 10/01/18 15:43 Urine Bilirubin Moderate (Negative) H 10/01/18 15:43 Ur Leukocyte Esterase Moderate (Negative) H 10/01/18 15:43 Urine Microscopic RBC 3-5 per hpf (0-3) H 10/01/18 15:43 Urine Microscopic WBC 5-15 per hpf (0-3) H 10/01/18 15:43 Ur Squamous Epith Cells Moderate per lpf (None-Few) H 10/01/18 15:43 Urine Bacteria Many per hpf (None-Few) H 10/01/18 15:43 Ur Culture Indicated? YES (NO) A 10/01/18 15:43 Diabetes panel 10/11/18 Range/Units 09:32 Sodium 136 (136-145) mEq/L Potassium 2.9 L (3.5-5.1) mEq/L Chloride 103 (98-107) mEq/L Carbon Dioxide 28 (23-29) mEq/L BUN 5 L (8-23) mg/dL Creatinine 0.60 (0.60-1.20) mg/dL Glucose 92 (70-105) mg/dL Calcium 8.3 L (8.6-10.3) mg/dL Calcium panel 10/11/18 10/11/18 Range/Units 09:32 09:32 Calcium 8.3 L (8.6-10.3) mg/dL Phosphorus 2.6 L (2.7-4.5) mg/dL Pituitary panel 10/11/18 Range/Units 09:32 Sodium 136 (136-145) mEq/L Potassium 2.9 L (3.5-5.1) mEq/L Chloride 103 (98-107) mEq/L Carbon Dioxide 28 (23-29) mEq/L BUN 5 L (8-23) mg/dL Creatinine 0.60 (0.60-1.20) mg/dL Glucose 92 (70-105) mg/dL Calcium 8.3 L (8.6-10.3) mg/dL Adrenal panel 10/11/18 Range/Units 09:32 Sodium 136 (136-145) mEq/L Potassium 2.9 L (3.5-5.1) mEq/L Chloride 103 (98-107) mEq/L Carbon Dioxide 28 (23-29) mEq/L BUN 5 L (8-23) mg/dL Creatinine 0.60 (0.60-1.20) mg/dL Glucose 92 (70-105) mg/dL Calcium 8.3 L (8.6-10.3) mg/dL All other labs normal. - Imaging Additional studies: Abdomen/Pelvis CT 10/01/18 15:06 IMPRESSION: 4 mm renal calculus at the right ureteropelvic junction without hydronephrosis. This calculus was previously seen at the lower pole of the right kidney. Moderate stool burden in the rectosigmoid colon with a 3 cm region of collapsed rectum. While this may be secondary to normal peristalsis, consider correlation with colonoscopy to rule out a focally constricting lesion. D/ / Baldomero Hernández / Baldomero Hernández Interpreting Provider: Baldomero Hernández Retrograde Pyelogram 10/04/18 00:00 IMPRESSION: Intraprocedural fluoroscopic spot images as above. See separate procedure report for more information. D/ / Alphonse May MD / Alphonse May MD Interpreting Provider: Alphonse May MD Videofluoroscopic Swallow 10/06/18 09:53 IMPRESSION: Limited exam due to severe nausea without penetration or aspiration observed. Please see separate speech pathology report for full discussion of findings and recommendations. D/ / 10/06/2018 15:55:52 Keny Hoffman MD / jc Interpreting Provider: Keny Hoffman MD Barium Swallow X-Ray 10/07/18 16:31 IMPRESSION: 1. Multiple tertiary contractions within esophagus indicative of esophageal dysmotility. 2. No evidence of large obstructing esophageal mass. 3. No significant hiatal hernia. D/ / 10/07/2018 12:30:06 Hugh Stover MD / sherrie Interpreting Provider: [facility] Stover MD Consult Discharge Plan - Plan Referrals: Alessandro Vines DO [Primary Care Provider] - Holden Quevedo MD [Partnered Physician] - - Attending Attestation For this encounter, I have reviewed the FEATHERER or PA documentation, treatment plan, and medical decision making; and I have had face to face time with this patient. <EdnaToMitchell J - Last Filed: 10/11/18 19:14> Date of Encounter: 10/11/18 Assessment and Plan (1) Intractable nausea and vomiting Current Visit: Yes Status: Acute Qualifiers: Vomiting type: unspecified Qualified Code(s): R11.2 - Nausea with vomiting, unspecified (2) UTI (urinary tract infection) Current Visit: No Status: Resolved Qualifiers: Urinary tract infection type: site unspecified Hematuria presence: with hematuria Qualified Code(s): N39.0 - Urinary tract infection, site not specified; R31.9 - Hematuria, unspecified (3) Parkinsons disease Current Visit: Yes Status: Chronic (4) Failure to thrive in adult Current Visit: Yes Status: Chronic (5) Kidney stone on right side Current Visit: Yes Status: Acute (6) Protein calorie malnutrition Current Visit: Yes Status: Chronic Qualifiers: Protein-calorie malnutrition severity: moderate Qualified Code(s): E44.0 - Moderate protein-calorie malnutrition Review of Systems All systems PM: The remainder of the systems were reviewed and are negative General Surgery Exam Initial Vital Signs Temp Pulse Resp BP Pulse Ox 98.3 F 72 16 148/99 97 10/01/18 15:08 10/01/18 15:08 10/01/18 15:08 10/01/18 15:08 10/01/18 15:08 Exam Initial Vital Signs Temp Pulse Resp BP Pulse Ox 98.3 F 72 16 148/99 97 10/01/18 15:08 10/01/18 15:08 10/01/18 15:08 10/01/18 15:08 10/01/18 15:08 Results - Labs 10/11/18 09:32 10/11/18 09:32 Abnormal lab results RBC 3.12 M/mcL (3.82-4.97) L 10/11/18 09:32 Hgb 8.4 g/dL (11.5-15.4) L 10/11/18 09:32 Hct 25.1 % (35.3-44.9) L 10/11/18 09:32 MCV 80.4 fL (83.0-100.0) L 10/11/18 09:32 MCH 26.9 pg (28.0-33.3) L 10/11/18 09:32 RDW 14.8 % (11.5-14.5) H 10/08/18 04:00 Plt Count 130 K/mcL (140-400) L 10/11/18 09:32 Immature Plt Fraction 11.5 % (1.1-6.1) H 10/09/18 06:21 Sodium 135 mEq/L (136-145) L 10/09/18 06:21 Potassium 2.9 mEq/L (3.5-5.1) L 10/11/18 09:32 Chloride 97 mEq/L (98-107) L 10/09/18 06:21 Carbon Dioxide 30 mEq/L (23-29) H 10/09/18 06:21 BUN 5 mg/dL (8-23) L 10/11/18 09:32 Glucose 112 mg/dL (70-105) H 10/08/18 04:00 POC Glucose 100 mg/dL (70-99) H 10/08/18 17:02 Calculated Osmolality 279 (280-300) L 10/11/18 09:32 Calcium 8.3 mg/dL (8.6-10.3) L 10/11/18 09:32 Phosphorus 2.6 mg/dL (2.7-4.5) L 10/11/18 09:32 Magnesium 1.5 mg/dL (1.6-2.6) L 10/09/18 06:21 ALT 3 Units/L (7-52) L 10/01/18 15:21 Urine Clarity Cloudy (Clear) A 10/01/18 15:43 Urine Ketones 15 mg/dL (Negative) H 10/01/18 15:43 Urine Blood Large (Negative) H 10/01/18 15:43 Urine Bilirubin Moderate (Negative) H 10/01/18 15:43 Ur Leukocyte Esterase Moderate (Negative) H 10/01/18 15:43 Urine Microscopic RBC 3-5 per hpf (0-3) H 10/01/18 15:43 Urine Microscopic WBC 5-15 per hpf (0-3) H 10/01/18 15:43 Ur Squamous Epith Cells Moderate per lpf (None-Few) H 10/01/18 15:43 Urine Bacteria Many per hpf (None-Few) H 10/01/18 15:43 Ur Culture Indicated? YES (NO) A 10/01/18 15:43 Diabetes panel 10/11/18 Range/Units 09:32 Sodium 136 (136-145) mEq/L Potassium 2.9 L (3.5-5.1) mEq/L Chloride 103 (98-107) mEq/L Carbon Dioxide 28 (23-29) mEq/L BUN 5 L (8-23) mg/dL Creatinine 0.60 (0.60-1.20) mg/dL Glucose 92 (70-105) mg/dL Calcium 8.3 L (8.6-10.3) mg/dL Calcium panel 10/11/18 10/11/18 Range/Units 09:32 09:32 Calcium 8.3 L (8.6-10.3) mg/dL Phosphorus 2.6 L (2.7-4.5) mg/dL Pituitary panel 10/11/18 Range/Units 09:32 Sodium 136 (136-145) mEq/L Potassium 2.9 L (3.5-5.1) mEq/L Chloride 103 (98-107) mEq/L Carbon Dioxide 28 (23-29) mEq/L BUN 5 L (8-23) mg/dL Creatinine 0.60 (0.60-1.20) mg/dL Glucose 92 (70-105) mg/dL Calcium 8.3 L (8.6-10.3) mg/dL Adrenal panel 10/11/18 Range/Units 09:32 Sodium 136 (136-145) mEq/L Potassium 2.9 L (3.5-5.1) mEq/L Chloride 103 (98-107) mEq/L Carbon Dioxide 28 (23-29) mEq/L BUN 5 L (8-23) mg/dL Creatinine 0.60 (0.60-1.20) mg/dL Glucose 92 (70-105) mg/dL Calcium 8.3 L (8.6-10.3) mg/dL All other labs normal. - Attending Attestation patient seen and examined. i have discussed the case in detail with the FEATHERER. I have reviewed all pertinent notes, imaging, and labs. I have also discussed the case in detail with the hospitalist. I agree with the above assessment and plan and wish to add the following... After a very long and extensive conversation, first with the granddaughter and second with the hospitalist, several things need to happen prior to placing a feeding tube. 1.) Need to clearly define who makes decisions for the patient when she is unable to make them as there is conflict as to who does make those decisions 2.) clear end goals of care need to be defined as well as the role expected for placing a feeding tube will play. The patient has underlying comorbidities, also has dementia so placing a gastrostomy tube or even performing a gastropexy or a hiatal hernia repair with gastropexy can be physiologically overwhelming for this patient. 3.) clear discussion as to the surgical options and the risks and expected benefits of it. General surgery will be available for any further discussions or family m dejah.
[2018-10-11] MEDS ORDERED: Potassium Phosphate 44 MEQ in 0.9 % Sodium Chloride 250 ML IVPB ONE (13:20)
--- NOTE | 2018-10-11 13:32 | Internal Med Progress Note ---
Hospitalist Progress Note - Encounter Date of Encounter: 10/11/18 Time of Encounter: 13:28 - Subjective Interval History: The recovery room rn was not able to place the PEG tube today status post upper endoscopy because the patient's stomach was completely subcostal the recommended surgical intervention. Discussed with patient's POA granddaughter by name Coco Torres who can reach at [phone]. Discuss at length the treatment plan she maintains that she would rather Ms. Hensley goes hospice however she strongly feels that the patient does not want hospice. Discussed with the patient and updated her now discussion with the POA she seems to indicate that she wants the PEG tube. Also discussed with the dietitian who requested starting patient on total parenteral nutrition to which the patient has high risk for complication. It appears the patient modified barium swallow was limited due to persistent nausea she currently denies dysphagia although she does appear to be severely malnourished and likely have diminished swallowing mechanism, malnutrition. She is currently being evaluated by the general surgery team. - Exam Vitals: Temp Pulse Resp BP Pulse Ox 98.6 F 70 15 99/57 94 10/11/18 11:42 10/11/18 11:42 10/11/18 11:42 10/11/18 11:42 10/11/18 11:42 Exam: GEN: Cachectic looking NAD, A&O x 3, minimally conversant today, and landon kuhn named melinda at her bedside SKIN: [place] warm acyanotic not jaundice, however multiple ecchymosis noted inferior to the lower margins of the right orbit, right frontal aspect of her skull and neck HEART: RRR, no murmurs LUNGS: Diminished no wheeze or crackles, overall non labored ABDOMEN; Soft, non tender or distended, BS x 4 normactive EXT: No LE edema, Pedal pulses 1+, radial pulses 2+ PSYCH: Mood depressed and affect flat - Assessment and Plan (1) Failure to thrive in adult Current Visit: Yes Status: Chronic Assessment and Plan: Initial attempt for PEG placement today was unsuccessful. She has currently been evaluated by the general surgery team. Discussed with POA and granddaughter Coco Torres she can be reached at [phone]. She does admit that the patient should go hospice but she does not feel that patient wants to be a hospice candidate discussed with patient and she does confirm that she still does not want to be full hospice. Await genera surgery intervention for PEG if possible. Discussed with dietitian TPN is not considered a solution to problem at this point the risk and complication does not have weighed benefits. Her a modified swallow was limited due to patient's nausea, however given her profound cachexia is quite likely that her swallowing mechanism is not grossly intact. Options could be temporary NG tube to help improve her nutritional status and then transition to oral liquid feeds with ensure she will as she c ontinues palliative care. Persistent nausea and vomiting could be related to have subcostal stomach, poor peristalsis from being pretty much non ambulatory. On the interim we will continue D5 normal saline potassium solution intravenously and intravenously replace had associated electrical abnormalities hypo-kalemia hypophosphatemia (2) Protein calorie malnutrition Current Visit: Yes Status: Chronic Assessment and Plan: PEG tube placement today was unsuccessful. See plan as above (3) Intractable nausea and vomiting Current Visit: Yes Status: Acute Assessment and Plan: Since being nothing by mouth she has had no more complaint of nausea. Her nausea is secondary to lack of peristalsis EGD and colonoscopy: unremarkable Prior progress notes. Patient family want to pursue PEG tube placement for nutritional support as the patient is minimally toleration any diet. - GI has been called for evaluation of PEG tube placement. - PPIs 40mg/IV daily - on a clear liquid diet - Continue Metoclopramide 10mg/IV Q6HRs yg - on Ondansetron 4mg/IV Q12HRs. (4) Hypokalemia Current Visit: No Status: Resolved Assessment and Plan: Likely secondary from her poor oral intake potassium is 2.9 today. Supplement Intravenously (5) Hypertension Current Visit: No Status: Chronic Assessment and Plan: Normotensive although lower for age, we will hold amlodipine (6) Parkinsons disease Current Visit: Yes Status: Chronic Assessment and Plan: on Carbidopa/levodopa. (7) Depression Current Visit: Yes Status: Chronic Assessment and Plan: On sertraline 150 mg by mouth daily. and buspirone 5mg/PO BID. (8) Kidney stone on right side Current Visit: Yes Status: Acute Assessment and Plan: Patient is status post cystoscopy. right retrograde pyelogram and JJ stent placement. (9) UTI (urinary tract infection) Current Visit: Yes Status: Acute Assessment and Plan: U/C: rainey-sensitive E.Coli. Blood culture: no growth to date Plan - On ceftriaxone 1gm/IV daily, had 5 days was discontinue (10) History of DVT (deep vein thrombosis) Current Visit: Yes Status: Chronic Assessment and Plan: patient with a provoke DVT diagnosed about 3 months ago. Plan: Rivaroxaban held due to hematuria. (11) Hypomagnesemia Current Visit: Yes Status: Acute Assessment and Plan: electrolyte replaced IV mg 2.1 (12) Hypophosphatemia Current Visit: Yes Status: Acute Assessment and Plan: Evidence of poor nutritional status and suspected to improve his nutrition imp roved, will supplement intravenously DVT Prophylaxis: On xarelto - Time Spent with Patient Total time spent is greater than 50% in coordination of care (as documented) at patient's floor/unit and/or counseling patient: Plan of Care Discussed with: testing consultant Internal Medicine: Result - Labs CBC & Chem 7: 10/11/18 09:32 10/11/18 09:32 Labs: Short CBC 10/11/18 Range/Units 09:32 WBC 5.9 (4.3-11.1) K/mcL Hgb 8.4 L (11.5-15.4) g/dL Hct 25.1 L (35.3-44.9) % Plt Count 130 L (140-400) K/mcL Neutrophils # 3.7 (1.6-8.9) K/mcL BMP 10/11/18 09:32 Sodium 136 Potassium 2.9 L Chloride 103 Carbon Dioxide 28 BUN 5 L Creatinine 0.60 Glucose 92 Calcium 8.3 L - ABG Interpretation ABG results: PT/INR, D-dimer PT 11.9 Seconds (9.4-12.1) 10/01/18 15:21 Consult Discharge Plan - Plan Referrals: Alessandro Vines DO [Primary Care Provider] - Holden Quevedo MD [Partnered Physician] - (2) Protein calorie malnutrition Qualifiers: Protein-calorie malnutrition severity: moderate Qualified Code(s): E44.0 - Moderate protein-calorie malnutrition (3) Intractable nausea and vomiting Qualifiers: Vomiting type: unspecified Qualified Code(s): R11.2 - Nausea with vomiting, unspecified (5) Hypertension Qualifiers: Hypertension type: essential hypertension Qualified Code(s): I10 - Essential (primary) hypertension (7) Depression Qualifiers: Depression Type: major depressive disorder Major depression recurrence: unspecified whether recurrent Major depression episode severity: unspecified (9) UTI (urinary tract infection) Qualifiers: Urinary tract infection type: site unspecified Hematuria presence: with hematuria Qualified Code(s): N39.0 - Urinary tract infection, site not specified; R31.9 - Hematuria, unspecified
[2018-10-11] MEDS ORDERED: Nystatin Cream 15 GM TUBE TP SCH (15:00)
[2018-10-11] MEDS: Nystatin Ointment 15 GM TUBE TP SCH ×2 (17:09→20:23)
[2018-10-12] MEDS: Ondansetron 4 MG/2 ML VIAL IVP SCH ×2 (03:29→13:08)
[2018-10-12 06:34] LABS: Basophils % 0.2 %; Eosinophils # 0.1 K/mcL (0.0-0.6); Eosinophils % 1.8 %; Hematocrit 25.9 % (35.3-44.9); Hemoglobin 8.4 g/dL (11.5-15.4); Immature Granulocytes % 0.8 % (0-4); Lymphocytes # 1.7 K/mcL (0.6-4.6); Lymphocytes % 33.6 %; Mean Corpuscular HGB Conc 32.4 g/dL (31.6-35.5); Mean Corpuscular Volume 80.2 fL (83.0-100.0); Mean Platelet Volume 9.8 fL (9.4-12.4); Monocytes # 0.5 K/mcL (0.0-1.3); Monocytes % 9.5 %; Neutrophils # 2.7 K/mcL (1.6-8.9); Platelet Count 137 K/mcL (140-400); Red Blood Count 3.23 M/mcL (3.82-4.97); Red Cell Distribution Width 14.5 % (11.5-14.5); Segmented Neutrophils % 54.1 %
[2018-10-12 06:52] LABS: BUN/Creatinine Ratio 8 (6-26); Blood Urea Nitrogen 4 mg/dL (8-23); Calcium 8.5 mg/dL (8.6-10.3); Carbon Dioxide 28 mEq/L (23-29); Chloride 102 mEq/L (98-107); Glucose 111 mg/dL (70-105); Magnesium 1.8 mg/dL (1.6-2.6); Osmolality,Calculated 280 (280-300); Potassium 3.4 mEq/L (3.5-5.1); Sodium 136 mEq/L (136-145); eGFR For African Americans > 60 (> 60); eGFR For Non-African Americans > 60 (> 60)
--- NOTE | 2018-10-12 10:39 | Internal Med Progress Note ---
Hospitalist Progress Note - Encounter Date of Encounter: 10/12/18 Time of Encounter: 09:45 - Subjective Interval History: Goals of care discussion was made with the patient's POA Coco Torres at the bedside today. She was followed by the surgical team and had successful placement of the PEG GEN: Denies fever, chills or malaise HEENT: Denies headache blurriness, or dysphagia RESP: Denies SOB or cough CV: Denies chest pain or palpitations GI: Denies Nausea, vomiting, diarrhea or constipation Reviewed current in hospital medications with modifications see orders Reviewed Routine labs - Exam Vitals: Temp Pulse Resp BP Pulse Ox 97.9 F 65 15 100/62 97 10/12/18 07:32 10/12/18 07:32 10/12/18 07:32 10/12/18 07:32 10/12/18 07:32 Exam: GEN: Cachectic looking NAD, A&O x 3, appears more awake and conversant today, gr anddaughter and POA at the bedside SKIN: [place] warm acyanotic not jaundice, however multiple ecchymosis noted inferior to the lower margins of the right orbit, right frontal aspect of her skull and neck HEART: RRR, no murmurs LUNGS: Diminished no wheeze or crackles, overall non labored ABDOMEN; Soft, non tender or distended, BS x 4 normactive EXT: No LE edema, Pedal pulses 1+, radial pulses 2+ PSYCH: Mood depressed and affect flat - Assessment and Plan (1) Failure to thrive in adult Current Visit: Yes Status: Chronic Assessment and Plan: Initial attempt for PEG placement today was unsuccessful. Repeat attempted by the surgical team was a successful today, was okayed by surgery will initiate nutrition, and a very slow rate so patient can tolerate tube feeds plan per Dietitian . Discussed with POA and granddaughter Coco Torres she can be reached at [phone]. She does admit that the patient should go hospice but she does not feel that patient wants to be a hospice candidate discussed with patient and she does confirm that she still does not want to be full hospice. (2) Protein calorie malnutrition Current Visit: Yes Status: Chronic Assessment and Plan: PEG tube placement today was successful. See plan as above (3) Intractable nausea and vomiting Current Visit: Yes Status: Acute Assessment and Plan: Since being nothing by mouth she has had no more complaint of nausea. We will see Tolerates Tube Feed Will Likely Initiate Reglan EGD and colonoscopy: unremarkable Prior progress notes. Patient family want to pursue PEG tube placement for nutritional support as the patient is minimally toleration any diet. - GI has been called for evaluation of PEG tube placement. - PPIs 40mg/IV daily - on a clear liquid diet - Continue Metoclopramide 10mg/IV Q6HRs yg - on Ondansetron 4mg/IV Q12HRs. (4) Hypokalemia Current Visit: Yes Status: Resolved Assessment and Plan: Likely secondary from her poor oral intake potassium is 3.4 today with Supplement Intravenously. Anticipatory improve as her nutrition improves (5) Hypertension Current Visit: Yes Status: Chronic Assessment and Plan: Normotensive although lower for age, we will hold amlodipine (6) Parkinsons disease Current Visit: Yes Status: Chronic Assessment and Plan: on Carbidopa/levodopa resume via PEG (7) Depression Current Visit: Yes Status: Chronic Assessment and Plan: On sertraline 150 mg by mouth daily. and buspirone 5mg/PO BID. would add mirtazapine for weight gain (8) Kidney stone on right side Current Visit: Yes Status: Acute Assessment and Plan: Patient is status post cystoscopy. right retrograde pyelogram and JJ stent placement. (9) UTI (urinary tract infection) Current Visit: Yes Status: Acute Assessment and Plan: U/C: rainey-sensitive E.Coli. Blood culture: no growth to date Plan - On ceftriaxone 1gm/IV daily, had 5 days was discontinue (10) History of DVT (deep vein thrombosis) Current Visit: Yes Status: Chronic Assessment and Plan: patient with a provoke DVT diagnosed about 3 months ago. Plan: Rivaroxaban held due to hematuria. However, hemoglobin has been stable at 8.4 we will reassess need for anticoagulation given that she is practically bedridden and high risk for DVT (11) Hypomagnesemia Current Visit: Yes Status: Acute Assessment and Plan: electrolyte replaced IV mg 1.8 (12) Hypophosphatemia Current Visit: Yes Status: Acute Assessment and Plan: Evidence of poor nutritional status and suspected to improve his nutrition improved, anticipates to improve DVT Prophylaxis: SCDs for now we will evaluate restarting xarelto - Time Spent with Patient Total time spent is greater than 50% in coordination of care (as documented) at patient's floor/unit and/or counseling patient: Internal Medicine: Result - Labs CBC & Chem 7: 10/12/18 06:14 10/12/18 06:14 Labs: Short CBC 10/12/18 Range/Units 06:14 WBC 5.0 (4.3-11.1) K/mcL Hgb 8.4 L (11.5-15.4) g/dL Hct 25.9 L (35.3-44.9) % Plt Count 137 L (140-400) K/mcL Neutrophils # 2.7 (1.6-8.9) K/mcL BMP 10/12/18 06:14 Sodium 136 Potassium 3.4 L Chloride 102 Carbon Dioxide 28 BUN 4 L Creatinine 0.52 L Glucose 111 H Calcium 8.5 L - ABG Interpretation ABG results: PT/INR, D-dimer PT 11.9 Seconds (9.4-12.1) 10/01/18 15:21 Consult Discharge Plan - Plan Referrals: Alessandro Vines DO [Primary Care Provider] - Holden Quevedo MD [Partnered Physician] - __ (2) Protein calorie malnutrition Qualifiers: Protein-calorie malnutrition severity: moderate Qualified Code(s): E44.0 - Moderate protein-calorie malnutrition (3) Intractable nausea and vomiting Qualifiers: Vomiting type: unspecified Qualified Code(s): R11.2 - Nausea with vomiting, unspecified (5) Hypertension Qualifiers: Hypertension type: essential hypertension Qualified Code(s): I10 - Essential (primary) hypertension (7) Depression Qualifiers: Depression Type: major depressive disorder Major depression recurrence: unspecified whether recurrent Major depression episode severity: unspecified (9) UTI (urinary tract infection) Qualifiers: Urinary tract infection type: site unspecified Hematuria presence: with hematuria Qualified Code(s): N39.0 - Urinary tract infection, site not specified; R31.9 - Hematuria, unspecified
--- NOTE | 2018-10-12 11:25 | Palliative Progress Note ---
Date of Encounter: 10/12/18 Time of Encounter: 11:00 - Assessment and plan (1) Intractable nausea and vomiting Current Visit: Yes Status: Acute Assessment and plan: She does not have nausea at this time. Only has when taking po. Qualifiers: Vomiting type: unspecified Qualified Code(s): R11.2 - Nausea with vomiting, unspecified (2) Generalized pain Current Visit: Yes Status: Acute Assessment and plan: Has low dose Morphine if needed, but has not utilized in 24 [address]. Once PEG in place, can transition to med per tube. (3) Goals of care, counseling/discussion Current Visit: Yes Status: Acute Assessment and plan: Patient awake and alert and granddaughter Candace at bedside. Palliative team has discussed case with Dr. Levin. He has done thorough evaluation of patient case and spoke with them regarding PEG insertion. Patient still desires to proceed with this. We will follow along closely, hopefully she will tolerate feedings, which will be titrated slowly. Ultimately will need ECF placement. (4) Kidney stone on right side Current Visit: Yes Status: Acute (5) Protein calorie malnutrition Current Visit: Yes Status: Chronic Assessment and plan: For PEG placement today per Dr. Levin Qualifiers: Protein-calorie malnutrition severity: moderate Qualified Code(s): E44.0 - Moderate protein-calorie malnutrition - Time Spent With Patient Total time spent is greater than 50% in coordination of care (as documented) at patient's floor/unit and/or counseling patient: - Subjective Interval history: Patient awake and alert. Granddaughter at bedside. We have discussed patient's situation with Dr. Levin, who has already seen and evaluated the patient. Patient and her Granddaughter Candace,SUYAPA are aware of the risks of procedure and are still in agreement to proceed. She will be going down for PEG attempt again today. - Constitutional Vitals: Abnormal lab results RBC 3.23 M/mcL (3.82-4.97) L 10/12/18 06:14 Hgb 8.4 g/dL (11.5-15.4) L 10/12/18 06:14 Hct 25.9 % (35.3-44.9) L 10/12/18 06:14 MCV 80.2 fL (83.0-100.0) L 10/12/18 06:14 MCH 26.0 pg (28.0-33.3) L 10/12/18 06:14 RDW 14.8 % (11.5-14.5) H 10/08/18 04:00 Plt Count 137 K/mcL (140-400) L 10/12/18 06:14 Immature Plt Fraction 11.5 % (1.1-6.1) H 10/09/18 06:21 Sodium 135 mEq/L (136-145) L 10/09/18 06:21 Potassium 3.4 mEq/L (3.5-5.1) L 10/12/18 06:14 Chloride 97 mEq/L (98-107) L 10/09/18 06:21 Carbon Dioxide 30 mEq/L (23-29) H 10/09/18 06:21 BUN 4 mg/dL (8-23) L 10/12/18 06:14 Creatinine 0.52 mg/dL (0.60-1.20) L 10/12/18 06:14 Glucose 111 mg/dL (70-105) H 10/12/18 06:14 POC Glucose 105 mg/dL (70-99) H 10/12/18 00:10 Calculated Osmolality 279 (280-300) L 10/11/18 09:32 Calcium 8.5 mg/dL (8.6-10.3) L 10/12/18 06:14 Phosphorus 2.6 mg/dL (2.7-4.5) L 10/11/18 09:32 Magnesium 1.5 mg/dL (1.6-2.6) L 10/09/18 06:21 ALT 3 Units/L (7-52) L 10/01/18 15:21 Urine Clarity Cloudy (Clear) A 10/01/18 15:43 Urine Ketones 15 mg/dL (Negative) H 10/01/18 15:43 Urine Blood Large (Negative) H 10/01/18 15:43 Urine Bilirubin Moderate (Negative) H 10/01/18 15:43 Ur Leukocyte Esterase Moderate (Negative) H 10/01/18 15:43 Urine Microscopic RBC 3-5 per hpf (0-3) H 10/01/18 15:43 Urine Microscopic WBC 5-15 per hpf (0-3) H 10/01/18 15:43 Ur Squamous Epith Cells Moderate per lpf (None-Few) H 10/01/18 15:43 Urine Bacteria Many per hpf (None-Few) H 10/01/18 15:43 Ur Culture Indicated? YES (NO) A 10/01/18 15:43 General appearance: Present: no acute distress - Respiratory Respiratory exam: Present: CTAB - Cardiovascular Cardiovascular exam: Present: +S1, +S2 - GI/Abdominal GI/Abdominal exam: Present: normal bowel sounds, soft - Extremities Exam Extremities exam: Present: normal capillary refill, normal inspection - Neurological Exam Neurological exam: Present: alert, oriented X3, strengths equal and symetr throughout - Skin Skin exam: Present: dry, pallor, warm Palliative Quality Palliative Quality: Screen for Code Status: Yes, Screen for Goals of Care: Yes, Screen for Pain: Yes, If Pain Regimen Started, Initiate Bowel Regimen: Yes, Screen for Nausea/Vomitting: Yes Code Status: 10/01/18 17:53 Resuscitation Status: Active [RES] Routine Comment: Resuscitation Status: [id number] - Labs CBC & Chem 7: 10/12/18 06:14 10/12/18 06:14 Labs: Laboratory Results - last 24 hr 10/10/18 10/10/18 10/11/18 17:05 23:50 05:12 WBC RBC Hgb Hct MCV MCH MCHC RDW Plt Count MPV Immature Gran % Seg Neutrophils % Lymphocytes % Monocytes % Eosinophils % Basophils % Neutrophils # Lymphocytes # Monocytes # Eosinophils # Basophils # Sodium Potassium Chloride Carbon Dioxide BUN Creatinine Est GFR ( Amer) Est GFR (Non-Af Amer) BUN/Creatinine Ratio Glucose POC Glucose 71 92 91 Calculated Osmolality Calcium Magnesium 10/11/18 10/11/18 10/12/18 11:50 17:06 00:10 WBC RBC Hgb Hct MCV MCH MCHC RDW Plt Count MPV Immature Gran % Seg Neutrophils % Lymphocytes % Monocytes % Eosinophils % Basophils % Neutrophils # Lymphocytes # Monocytes # Eosinophils # Basophils # Sodium Potassium Chloride Carbon Dioxide BUN Creatinine Est GFR ( Amer) Est GFR (Non-Af Amer) BUN/Creatinine Ratio Glucose POC Glucose 97 86 105 H Calculated Osmolality Calcium Magnesium 10/12/18 10/12/18 06:14 06:14 WBC 5.0 RBC 3.23 L Hgb 8.4 L Hct 25.9 L MCV 80.2 L MCH 26.0 L MCHC 32.4 RDW 14.5 Plt Count 137 L MPV 9.8 Immature Gran % 0.8 Seg Neutrophils % 54.1 Lymphocytes % 33.6 Monocytes % 9.5 Eosinophils % 1.8 Basophils % 0.2 Neutrophils # 2.7 Lymphocytes # 1.7 Monocytes # 0.5 Eosinophils # 0.1 Basophils # 0.0 Sodium 136 Potassium 3.4 L Chloride 102 Carbon Dioxide 28 BUN 4 L Creatinine 0.52 L Est GFR ( Amer) > 60 Est GFR (Non-Af Amer) > 60 BUN/Creatinine Ratio 8 Glucose 111 H POC Glucose Calculated Osmolality 280 Calcium 8.5 L Magnesium 1.8 - ABG Interpretation ABG results: PT/INR, D-dimer PT 11.9 Seconds (9.4-12.1) 10/01/18 15:21 Consult Discharge Plan - Plan Referrals: Alessandro Vines DO [Primary Care Provider] - Holden Quevedo MD [Partnered Physician] -
--- NOTE | 2018-10-12 11:30 | AcuteCareSurgery Progress Note ---
Date of Encounter: 10/12/18 Time of Encounter: 11:20 Subjective Narrative: I personally evaluated the patient on 2 occasions today I completely reviewed the medical record and had a one-on-one meeting with palliative medicine for 15 minutes and a family meeting for 20 minutes. We discussed the risks and benefits of proceeding with PEG tube placement. I understand the limitations from the previous attempt and I personally reviewed the CAT scan and upper GI and I think that PEG tube can be technically performed. This may or may not alleviate her symptoms. I believe that her nausea and vomiting is central secondary to multiple strokes and infarcts area we will treat her with scopolamine patch as well as PEG tube with nutrition and hydration. The family understands this approach may fail. We will proceed with PEG tube placement if technically possible Kris Levin MD FACS Objective Vital Signs - Last 8 Hours Temp Pulse Resp BP Pulse Ox 10/12/18 10:25 98.3 F 59 15 102/65 99 10/12/18 07:32 97.9 F 65 15 100/62 97 10/12/18 05:07 97.9 F 60 15 99/61 95 Intake and Output 10/11/18 10/12/18 10/12/18 23:59 07:59 15:59 Intake Total 300 / 1300 Balance 300 / 1300 Intake: IV Fluids 300 / 1300 Potassium Chloride 10 mEq/100mL 300 / 300 10 meq In 100 ml @ 100 mls/hr IVPB Q1H [facility] Rx#:[id number] Other: Meal npo npo # Urine Diapers 1 1 1 Weight 53.8 kg Blood Glucose* 86 114 106 Patient Weight 10/12/18 23:59 Weight 53.8 kg - Labs 10/12/18 06:14 10/12/18 06:14 Diabetes panel 10/12/18 Range/Units 06:14 Sodium 136 (136-145) mEq/L Potassium 3.4 L (3.5-5.1) mEq/L Chloride 102 (98-107) mEq/L Carbon Dioxide 28 (23-29) mEq/L BUN 4 L (8-23) mg/dL Creatinine 0.52 L (0.60-1.20) mg/dL Glucose 111 H (70-105) mg/dL Calcium 8.5 L (8.6-10.3) mg/dL Calcium panel 10/12/18 Range/Units 06:14 Calcium 8.5 L (8.6-10.3) mg/dL Pituitary panel 10/12/18 Range/Units 06:14 Sodium 136 (136-145) mEq/L Potassium 3.4 L (3.5-5.1) mEq/L Chloride 102 (98-107) mEq/L Carbon Dioxide 28 (23-29) mEq/L BUN 4 L (8-23) mg/dL Creatinine 0.52 L (0.60-1.20) mg/dL Glucose 111 H (70-105) mg/dL Calcium 8.5 L (8.6-10.3) mg/dL Adrenal panel 10/12/18 Range/Units 06:14 Sodium 136 (136-145) mEq/L Potassium 3.4 L (3.5-5.1) mEq/L Chloride 102 (98-107) mEq/L Carbon Dioxide 28 (23-29) mEq/L BUN 4 L (8-23) mg/dL Creatinine 0.52 L (0.60-1.20) mg/dL Glucose 111 H (70-105) mg/dL Calcium 8.5 L (8.6-10.3) mg/dL Consult Discharge Plan - Plan Referrals: Alessandro Vines DO [Primary Care Provider] - Holden Quevedo MD [Partnered Physician] -
[2018-10-12] MEDS ORDERED: *HR* Midazolam HCl 5 MG/5 ML VIAL IVP ONE ×2 (11:32→11:38)
[2018-10-12] MEDS ORDERED: Tetracaine/Benzocaine/Butamben 1 SPRAY AEROSOL MM ONE (11:32)
[2018-10-12] MEDS ORDERED: *HR* FentaNYL (PF) 100 MCG/2 ML VIAL IVP ONE (11:32)
--- NOTE | 2018-10-12 11:35 | Pre-Sedation Evaluation ---
Pre-sedation evaluation - Pre-sedation checklist Date of procedure: 10/04/18 Procedure: EGD PEG Recent Vitals: Last Vital Signs Temp 98.3 F 10/12/18 10:25 Pulse 59 10/12/18 10:25 Resp 15 10/12/18 10:25 BP 102/65 10/12/18 10:25 Pulse Ox 99 10/12/18 10:25 H&P (including ROS) documented in medical record: Yes Previous reaction to sedatives/anesthetics: No Dietary Status: NPO after Midnight Airway Assessment: Patient can open mouth completely, TMJ function normal Dentition: dentures removed Possible difficult airway: No ASA Classification *see protocol: CLASS III-Severe systemic disease Cardiac Registry (Cardio Only) - Clincal Frailty Scale Clinical Frailty Scale: Severely Frail
[2018-10-12] MEDS ORDERED: *HR* FentaNYL (PF) 100 MCG/2 ML VIAL ONE (11:38)
[2018-10-12] MEDS ORDERED: 0.9 % Sodium Chloride 1,000 ML IVC SCH (11:45)
[2018-10-12] MEDS: Carbidopa/Levodopa ER 50/200 TABLET PO SCH (13:07)
[2018-10-12] MEDS: Nystatin Ointment 15 GM TUBE TP SCH ×3 (13:08→22:33)
[2018-10-12] MEDS: Scopolamine Patch 1.5 MG PATCH.TD72 TD SCH (13:18)
[2018-10-12] MEDS: Pantoprazole 40 MG VIAL IVP SCH (13:19)
[2018-10-12] MEDS ORDERED: Docusate Oral Soln 100 MG/10 ML UDC GTUBE PRN (14:01)
[2018-10-12] MEDS ORDERED: traMADol 50 MG TABLET GTUBE PRN (14:04)
[2018-10-12] MEDS: Carbidopa/Levodopa 25/100 TABLET GTUBE SCH ×2 (21:13→22:04)
[2018-10-12] MEDS: Mirtazapine 15 MG TABLET PO SCH ×2 (21:13→22:03)
[2018-10-12] MEDS: D5% in 0.45% NACL 1,000 ML IVC SCH (22:32)
[2018-10-13 05:45] LABS: Basophils % 0.5 %; Eosinophils # 0.1 K/mcL (0.0-0.6); Eosinophils % 2.4 %; Hematocrit 28.7 % (35.3-44.9); Hemoglobin 9.1 g/dL (11.5-15.4); Immature Granulocytes % 0.9 % (0-4); Lymphocytes % 35.1 %; Mean Corpuscular HGB Conc 31.7 g/dL (31.6-35.5); Mean Corpuscular Hemoglobin 26.1 pg (28.0-33.3); Mean Corpuscular Volume 82.5 fL (83.0-100.0); Mean Platelet Volume 10.3 fL (9.4-12.4); Monocytes # 0.6 K/mcL (0.0-1.3); Monocytes % 9.9 %; Platelet Count 136 K/mcL (140-400); Red Blood Count 3.48 M/mcL (3.82-4.97); Red Cell Distribution Width 14.4 % (11.5-14.5); Segmented Neutrophils % 51.2 %; White Blood Count 5.8 K/mcL (4.3-11.1)
[2018-10-13 06:05] LABS: BUN/Creatinine Ratio 7 (6-26); Blood Urea Nitrogen 3 mg/dL (8-23); Calcium 8.8 mg/dL (8.6-10.3); Carbon Dioxide 27 mEq/L (23-29); Chloride 106 mEq/L (98-107); Glucose 78 mg/dL (70-105); Magnesium 1.6 mg/dL (1.6-2.6); Osmolality,Calculated 279 (280-300); Phosphorous 2.7 mg/dL (2.7-4.5); Potassium 3.2 mEq/L (3.5-5.1); Sodium 137 mEq/L (136-145); eGFR For African Americans > 60 (> 60); eGFR For Non-African Americans > 60 (> 60)
[2018-10-13] MEDS ORDERED: Potassium Chloride Elixir 20 MEQ/15 ML UDC PO ONE (07:54)
--- NOTE | 2018-10-13 08:42 | Acute Care Surgery Event Note ---
Date of Encounter: 10/13/18 Time of Encounter: 08:41 Okay to use peg tube and begin feedings. TF initiation and titration per nutrition. Surgery will sign off at this time. Please call or reconsult if any further questions or needs arise.
[2018-10-13] MEDS: Carbidopa/Levodopa 25/100 TABLET GTUBE SCH ×2 (09:17→22:08)
[2018-10-13] MEDS: Nystatin Ointment 15 GM TUBE TP SCH ×2 (09:27→17:50)
--- NOTE | 2018-10-13 12:51 | Event Note ---
Date of Encounter: 10/13/18 Time of Encounter: 12:00 Patient awake and alert, niece at bedside. PEG in place - appears feedings will begin this afternoon. She is in good spirits and hopeful to tolerate feedings. POA granddaughter aware. Will f/u with patient Tuesday
--- NOTE | 2018-10-13 14:46 | Internal Med Progress Note ---
Hospitalist Progress Note - Encounter Date of Encounter: 10/13/18 Time of Encounter: 09:50 - Subjective Interval History: Per staff patient had 1 large loose BM. Ms. Hensley is not complaining of any abdominal pain. She appears to be in good spirits this morning. And she will be started on tube feeds today GEN: Denies fever, chills or malaise HEENT: Denies headache blurriness, or dysphagia RESP: Denies SOB or cough CV: Denies chest pain or palpitations GI: Denies Nausea, vomiting, diarrhea or constipation Reviewed current in hospital medications with modifications see orders Reviewed Routine labs - Exam Vitals: Temp Pulse Resp BP Pulse Ox 97.6 F 66 18 94/58 94 10/13/18 12:02 10/13/18 12:10/13/18 12:10/13/18 12:10/13/18 12:02 Exam: GEN: Cachectic looking NAD, A&O x 3, appears more awake and conversant and joyful SKIN: [place] warm acyanotic not jaundice, however multiple ecchymosis noted inferior to the lower margins of the right orbit, right frontal aspect of her skull and neck is receding HEART: RRR, no murmurs LUNGS: Diminished no wheeze or crackles, overall non labored ABDOMEN; Soft, non tender or distended, BS x 4 normactive. PEG tube noted EXT: No LE edema, Pedal pulses 1+, radial pulses 2+ PSYCH: Mood joyful and affect appropriate - Assessment and Plan (1) Failure to thrive in adult Current Visit: Yes Status: Chronic Assessment and Plan: Resume to feed discuss with dietitian the goal will be to start at 10 ml/h we will clinically correlate Initial attempt for PEG placement today was unsuccessful. Repeat attempted by the surgical team was a successful today, was okayed by surgery will initiate nutrition, and a very slow rate so patient can tolerate tube feeds plan per Dietitian . Discussed with POA and granddaughter Coco Torres she can be reached at [phone]. She does admit that the patient should go hospice but she does not feel that patient wants to be a hospice candidate discussed with patient and she does confirm that she still does not want to be full hospice. (2) Protein calorie malnutrition Current Visit: Yes Status: Chronic Assessment and Plan: PEG tube placement today was successful. See plan as above. We will watch closely she is high risk for refeeding syndrome (3) Intractable nausea and vomiting Current Visit: Yes Status: Acute Assessment and Plan: We will monitor closely now since restarting tube feed, was resolved, we will wait to initiate Reglan Since being nothing by mouth she has had no more complaint of nausea. EGD and colonoscopy: unremarkable (4) Hypokalemia Current Visit: Yes Status: Resolved Assessment and Plan: Likely secondary from her poor oral intake potassium is 3.2 today with Supplement via PEG. Anticipatory improve as her nutrition improves (5) Hypertension Current Visit: Yes Status: Chronic Assessment and Plan: Normotensive although lower for age, we will hold amlodipine, may initiate as soon as her nutrition improves (6) Parkinsons disease Current Visit: Yes Status: Chronic Assessment and Plan: on Carbidopa/levodopa resume via PEG, however given use of reglan which has been associated with parkinsonian syndrome (7) Depression Current Visit: Yes Status: Chronic Assessment and Plan: decrease sertraline from 150 mg to 100 mg by mouth daily. and buspirone 5mg/PO BID. mirtazapine for weight gain (8) Kidney stone on right side Current Visit: Yes Status: Acute Assessment and Plan: Patient is status post cystoscopy. right retrograde pyelogram and JJ stent placement. (9) UTI (urinary tract infection) Current Visit: Yes Status: Acute Assessment and Plan: U/C: rainey-sensitive E.Coli. Blood culture: no growth to date Plan - On ceftriaxone 1gm/IV daily, had 5 days was discontinue (10) History of DVT (deep vein thrombosis) Current Visit: Yes Status: Chronic Assessment and Plan: patient with a provoke DVT diagnosed about 3 months ago. Rivaroxaban held due to hematuria. However, hemoglobin has been stable at 8.4 we will reassess need for anticoagulation given that she is practically bedridden and high risk for DVT will restart (11) Hypomagnesemia Current Visit: Yes Status: Acute Assessment and Plan: mg 1.6, anticipate improvement with tube feed (12) Hypophosphatemia Current Visit: Yes Status: Acute Assessment and Plan: Evidence of poor nutritional status and suspected to improve his nutrition improved, anticipates to improve, started on tube feed, high risk for re- feeding syndrome - Time Spent with Patient Total time spent is greater than 50% in coordination of care (as documented) at patient's floor/unit and/or counseling patient: Internal Medicine: Result - Labs CBC & Chem 7: 10/13/18 05:28 10/13/18 05:28 Labs: Short CBC 10/13/18 Range/Units 05:28 WBC 5.8 (4.3-11.1) K/mcL Hgb 9.1 L (11.5-15.4) g/dL Hct 28.7 L (35.3-44.9) % Plt Count 136 L (140-400) K/mcL Neutrophils # 3.0 (1.6-8.9) K/mcL BMP 10/13/18 05:28 Sodium 137 Potassium 3.2 L Chloride 106 Carbon Dioxide 27 BUN 3 L Creatinine 0.45 L Glucose 78 Calcium 8.8 - ABG Interpretation ABG results: PT/INR, D-dimer PT 11.9 Seconds (9.4-12.1) 10/01/18 15:21 Consult Discharge Plan - Plan Referrals: Alessandro Vines DO [Primary Care Provider] - Holden Quevedo MD [Partnered Physician] - (2) Protein calorie malnutrition Qualifiers: Protein-calorie malnutrition severity: moderate Qualified Code(s): E44.0 - Moderate protein-calorie malnutrition (3) Intractable nausea and vomiting Qualifiers: Vomiting type: unspecified Qualified Code(s): R11.2 - Nausea with vomiting, unspecified (5) Hypertension Qualifiers: Hypertension type: essential hypertension Qualified Code(s): I10 - Essential (primary) hypertension (7) Depression Qualifiers: Depression Type: major depressive disorder Major depression recurrence: unspecified whether recurrent Major depression episode severity: unspecified (9) UTI (urinary tract infection) Qualifiers: Urinary tract infection type: site unspecified Hematuria presence: with hematuria Qualified Code(s): N39.0 - Urinary tract infection, site not specified; R31.9 - Hematuria, unspecified
[2018-10-13] MEDS: *HR* Rivaroxaban 10 MG TABLET GTUBE SCH (17:52)
[2018-10-13] MEDS: Mirtazapine 15 MG TABLET GTUBE SCH (22:07)
[2018-10-14] MEDS: Nystatin Ointment 15 GM TUBE TP SCH ×3 (03:26→16:11)
[2018-10-14] MEDS: D5% in 0.45% NACL 1,000 ML IVC SCH (06:22)
[2018-10-14 09:19] LABS: Basophils % 0.5 %; Eosinophils # 0.2 K/mcL (0.0-0.6); Eosinophils % 2.3 %; Hematocrit 25.8 % (35.3-44.9); Hemoglobin 8.4 g/dL (11.5-15.4); Immature Granulocytes % 0.8 % (0-4); Lymphocytes # 1.6 K/mcL (0.6-4.6); Lymphocytes % 25.3 %; Mean Corpuscular HGB Conc 32.6 g/dL (31.6-35.5); Mean Corpuscular Hemoglobin 26.5 pg (28.0-33.3); Mean Corpuscular Volume 81.4 fL (83.0-100.0); Mean Platelet Volume 10.2 fL (9.4-12.4); Monocytes # 0.5 K/mcL (0.0-1.3); Monocytes % 7.5 %; Neutrophils # 4.1 K/mcL (1.6-8.9); Platelet Count 202 K/mcL (140-400); Red Blood Count 3.17 M/mcL (3.82-4.97); Red Cell Distribution Width 14.6 % (11.5-14.5); Segmented Neutrophils % 63.6 %; White Blood Count 6.4 K/mcL (4.3-11.1)
[2018-10-14 09:35] LABS: BUN/Creatinine Ratio 4 (6-26); Blood Urea Nitrogen 2 mg/dL (8-23); Calcium 8.8 mg/dL (8.6-10.3); Carbon Dioxide 27 mEq/L (23-29); Chloride 106 mEq/L (98-107); Glucose 80 mg/dL (70-105); Magnesium 1.5 mg/dL (1.6-2.6); Osmolality,Calculated 283 (280-300); Potassium 3.5 mEq/L (3.5-5.1); Sodium 139 mEq/L (136-145); eGFR For African Americans > 60 (> 60); eGFR For Non-African Americans > 60 (> 60)
[2018-10-14] MEDS: Carbidopa/Levodopa 25/100 TABLET GTUBE SCH ×2 (10:18→21:47)
--- NOTE | 2018-10-14 11:49 | Internal Med Progress Note ---
Hospitalist Progress Note - Encounter Date of Encounter: 10/14/18 Time of Encounter: 11:46 - Subjective Interval History: Ms Hensley is noted to have lost her voice. According to the granddaughter and POA Ms. Coco Torres this is her typical presentation when she has a stroke. Last known well was yesterday. Nursing staff this morning stated that patient was soft-spoken. Patient is able to communicate by head nod yes or no to short answer questions GEN: Denies fever, chills or malaise HEENT: admit to headache but denies blurriness, or dysphagia RESP: Denies SOB or cough CV: Denies chest pain or palpitations GI: Denies Nausea, vomiting, diarrhea or constipation Reviewed current in hospital medications with modifications see orders Reviewed Routine labs - Exam Vitals: Temp Pulse Resp BP Pulse Ox 98.4 F 64 17 99/67 94 10/14/18 11:02 10/14/18 11:02 10/14/18 11:02 10/14/18 11:02 10/14/18 11:02 Exam: GEN: Emaciated female, NAD, A&O x 3, POA and granddaughter at the bedside HEENT: No facial asymmetry, visualized portion of the oral mucosa revealed extremely dry mucosa with whitish exudates SKIN: [place] warm acyanotic not jaundice HEART: RRR, no murmurs LUNGS: CTA no wheeze or crackles, overall non labored ABDOMEN; Soft, non tender or distended, BS x 4 normactive EXT: No LE edema, Pedal pulses 1+, radial pulses 2+ PSYCH: Mood and affect is appropriate Neuro: Cranial exam was limited but unremarkable, unable to fully assess cranial nerve VII, IX, X and XII. with regard to muscle strength testing also limited due to prior stroke and neurological deficits. Otherwise no facial asymmetry patient does appear to have motor aphasia - Assessment and Plan (1) Motor aphasia Current Visit: Yes Status: Acute Assessment and Plan: Patient's granddaughter and POA stated that when patient had prior strokes, her only presenting symptoms is motor aphasia, neuro exam was limited due to prior neurological deficits from prior strokes, oral exam does reveal extremely dry or al mucosa, initial attempts to moisten patient's oral mucosa with oral care did not improve her ability to vocalize. Laryngitis is a possibility however would obtain CT of the neck and soft tissue as well as CT of the head giving the aforementioned symptoms of patient's typical presentation of stroke (2) Failure to thrive in adult Current Visit: Yes Status: Chronic Assessment and Plan: Resume to feed discuss with dietitian the goal will be to start at 10 ml/h we will clinically correlate Initial attempt for PEG placement today was unsuccessful. Repeat attempted by the surgical team was a successful today, was okayed by surgery will initiate nutrition, and a very slow rate so patient can tolerate tube feeds plan per Dietitian . Discussed with POA and granddaughter Coco Torres she can be reached at [phone]. She does admit that the patient should go hospice but she does not feel that patient wants to be a hospice candidate discussed with patient and she does confirm that she still does not want to be full hospice. (3) Protein calorie malnutrition Current Visit: Yes Status: Chronic Assessment and Plan: PEG tube placement today was successful. See plan as above. We will watch c losely she is high risk for refeeding syndrome (4) Intractable nausea and vomiting Current Visit: Yes Status: Acute Assessment and Plan: We will monitor closely now since restarting tube feed, was resolved, we will wait to initiate Reglan Since being nothing by mouth she has had no more complaint of nausea. EGD and colonoscopy: unremarkable (5) Hypokalemia Current Visit: Yes Status: Resolved Assessment and Plan: Likely secondary from her poor oral intake potassium is 3.2 today with Supplement via PEG. Anticipatory improve as her nutrition improves, it finally resolved potassium is 3.5 (6) Hypertension Current Visit: Yes Status: Chronic Assessment and Plan: Normotensivealthough lower for age, we will hold amlodipine, may initiate as soon as her nutrition improves (7) Parkinsons disease Current Visit: Yes Status: Chronic Assessment and Plan: on Carbidopa/levodopa resume via PEG, however given use of reglan which has been associated with parkinsonian syndrome (8) Depression Current Visit: Yes Status: Chronic Assessment and Plan: decrease sertraline from 150 mg to 100 mg by mouth daily. and buspirone 5mg/PO BID. mirtazapine for weight gain (9) Kidney stone on right side Current Visit: Yes Status: Acute Assessment and Plan: Patient is status post cystoscopy. right retrograde pyelogram and JJ stent placement. (10) UTI (urinary tract infection) Current Visit: Yes Status: Acute Assessment and Plan: U/C: rainey-sensitive E.Coli. Blood culture: no growth to date Plan - On ceftriaxone 1gm/IV daily, had 5 days was discontinue (11) History of DVT (deep vein thrombosis) Current Visit: Yes Status: Chronic Assessment and Plan: patient with a provoke DVT diagnosed about 3 months ago. Rivaroxaban held due to hematuria. However, hemoglobin has been stable at 8.4 we will reassess need for anticoagulation given that she is practically bedridden and high risk for DVT will restart (12) Hypomagnesemia Current Visit: Yes Status: Acute Assessment and Plan: mg 1.6, anticipate improvement with tube feed (13) Hypophosphatemia Current Visit: Yes Status: Acute Assessment and Plan: Evidence of poor nutritional status and suspected to improve his nutrition improved, anticipates to improve, started on tube feed, high risk for re- feeding syndrome - Time Spent with Patient Total time spent is greater than 50% in coordination of care (as documented) at patient's floor/unit and/or counseling patient: Plan of Care Discussed with: family Internal Medicine: Result - Labs CBC & Chem 7: 10/14/18 08:42 10/14/18 08:42 Labs: Short CBC 10/14/18 Range/Units 08:42 WBC 6.4 (4.3-11.1) K/mcL Hgb 8.4 L (11.5-15.4) g/dL Hct 25.8 L (35.3-44.9) % Plt Count 202 (140-400) K/mcL Neutrophils # 4.1 (1.6-8.9) K/mcL BMP 10/14/18 08:42 Sodium 139 Potassium 3.5 Chloride 106 Carbon Dioxide 27 BUN 2 L Creatinine 0.52 L Glucose 80 Calcium 8.8 - ABG Interpretation ABG results: PT/INR, D-dimer PT 11.9 Seconds (9.4-12.1) 10/01/18 15:21 Consult Discharge Plan - Plan Referrals: Alessandro Vines DO [Primary Care Provider] - Holden Quevedo MD [Partnered Physician] - (3) Protein calorie malnutrition Qualifiers: Protein-calorie malnutrition severity: moderate Qualified Code(s): E44.0 - Moderate protein-calorie malnutrition (4) Intractable nausea and vomiting Qualifiers: Vomiting type: unspecified Qualified Code(s): R11.2 - Nausea with vomiting, unspecified (6) Hypertension Qualifiers: Hypertension type: essential hypertension Qualified Code(s): I10 - Essential (primary) hypertension (8) Depression Qualifiers: Depression Type: major depressive disorder Major depression recurrence: unspecified whether recurrent Major depression episode severity: unspecified (10) UTI (urinary tract infection) Qualifiers: Urinary tract infection type: site unspecified Hematuria presence: with hematuria Qualified Code(s): N39.0 - Urinary tract infection, site not specified; R31.9 - Hematuria, unspecified
[2018-10-14] MEDS: *HR* Rivaroxaban 10 MG TABLET GTUBE SCH (18:38)
[2018-10-14] MEDS: Mirtazapine 15 MG TABLET GTUBE SCH (21:46)
[2018-10-15] MEDS: *HR* OxyCODONE Oral Soln 5 MG/5 ML UD.LIQ GTUBE PRN ×3 (02:19→16:40)
[2018-10-15] MEDS: D5% in 0.45% NACL 1,000 ML IVC SCH ×2 (03:38→03:42)
[2018-10-15] MEDS: Nystatin Ointment 15 GM TUBE TP SCH ×4 (08:42→21:18)
[2018-10-15] MEDS: Carbidopa/Levodopa 25/100 TABLET GTUBE SCH ×2 (08:42→21:17)
[2018-10-15 12:01] LABS: Basophils % 0.3 %; Eosinophils # 0.1 K/mcL (0.0-0.6); Eosinophils % 1.9 %; Hematocrit 23.8 % (35.3-44.9); Hemoglobin 7.8 g/dL (11.5-15.4); Immature Granulocytes % 0.7 % (0-4); Lymphocytes # 2.4 K/mcL (0.6-4.6); Lymphocytes % 35.7 %; Mean Corpuscular HGB Conc 32.8 g/dL (31.6-35.5); Mean Corpuscular Hemoglobin 26.6 pg (28.0-33.3); Mean Corpuscular Volume 81.2 fL (83.0-100.0); Mean Platelet Volume 9.6 fL (9.4-12.4); Monocytes # 0.5 K/mcL (0.0-1.3); Monocytes % 7.9 %; Neutrophils # 3.6 K/mcL (1.6-8.9); Platelet Count 202 K/mcL (140-400); Red Blood Count 2.93 M/mcL (3.82-4.97); Red Cell Distribution Width 14.9 % (11.5-14.5); Segmented Neutrophils % 53.5 %; White Blood Count 6.8 K/mcL (4.3-11.1)
[2018-10-15 12:20] LABS: BUN/Creatinine Ratio 8 (6-26); Blood Urea Nitrogen 4 mg/dL (8-23); Calcium 8.1 mg/dL (8.6-10.3); Carbon Dioxide 28 mEq/L (23-29); Chloride 106 mEq/L (98-107); Glucose 99 mg/dL (70-105); Magnesium 1.9 mg/dL (1.6-2.6); Osmolality,Calculated 283 (280-300); Phosphorous 3.5 mg/dL (2.7-4.5); Potassium 3.3 mEq/L (3.5-5.1); Sodium 138 mEq/L (136-145); eGFR For African Americans > 60 (> 60); eGFR For Non-African Americans > 60 (> 60)
[2018-10-15] MEDS: Scopolamine Patch 1.5 MG PATCH.TD72 TD SCH (13:24)
--- NOTE | 2018-10-15 15:40 | Internal Med Progress Note ---
Hospitalist Progress Note - Encounter Date of Encounter: 10/15/18 Time of Encounter: 13:38 - Subjective Interval History: Ms Hensley tube feed has been titrated to 30ml per hour, she was strongly encouraged to continue to use the oral care supplies at her bedside to moisten her oral mucosa GEN: Denies fever, chills or malaise HEENT: Denies headache blurriness, or dysphagia RESP: Denies SOB or cough CV: Denies chest pain or palpitations GI: Denies Nausea, vomiting, diarrhea or constipation Reviewed current in hospital medications with modifications see orders Reviewed Routine labs - Exam Vitals: Temp Pulse Resp BP Pulse Ox 98.5 F 65 14 99/61 95 10/15/18 12:26 10/15/18 12:26 10/15/18 12:26 10/15/18 12:26 10/15/18 12:26 Exam: GEN: Emaciated female, NAD, A&O x 3, SKIN: [place] warm acyanotic not jaundice HEART: RRR, no murmurs LUNGS: Slightly diminished but CTA no wheeze or crackles, overall non labored ABDOMEN; Soft, non tender or distended, BS x 4 normactive EXT: No LE edema, Pedal pulses 1+, radial pulses 2+ PSYCH: Mood and affect is appropriate - Assessment and Plan (1) Microcytic anemia Current Visit: Yes Status: Acute Assessment and Plan: Hemoglobin has been up and down no documentation of any bleed. Workup initiated. Hemoglobin 7.8, will hold xarelto for now pending workup. (2) Motor aphasia Current Visit: Yes Status: Acute Assessment and Plan: CT head and CT neck without contrast were both unremarkable for any acute abnormality. Suspect dry mucosa membranes, laryngitis lower on differential today she has no sore throat, mild improvement with moistening of oral mucosa with the oral care supplies. Patient's granddaughter and POA stated that when patient had prior strokes, her only presenting symptoms is motor aphasia, neuro exam was limited due to prior neurological deficits from prior strokes, oral exam does reveal extremely dry oral mucosa, initial attempts to moisten patient's oral mucosa with oral care did not improve her ability to vocalize. Laryngitis is a possibility however would obtain CT of the neck and soft tissue as well as CT of the head giving the aforementioned symptoms of patient's typical presentation of stroke (3) Failure to thrive in adult Current Visit: Yes Status: Chronic Assessment and Plan: On tube feeds at 30 miles per hour Initial attempt for PEG placement today was unsuccessful. Repeat attempted by the surgical team was a successful today, was okayed by surgery will initiate nutrition, and a very slow rate so patient can tolerate tube feeds plan per Dietitian . Discussed with POA and granddaughter Coco Torres she can be reached at [phone]. She does admit that the patient should go hospice but she does not feel that patient wants to be a hospice candidate discussed with patient and she does confirm that she still does not want to be full hospice. (4) Protein calorie malnutrition Current Visit: Yes Status: Chronic Assessment and Plan: PEG tube placement today was successful. See plan as above. We will watch closely she is high risk for refeeding syndrome, tube feed has been titrated up from 10 ML's per hour to 30 ml per hour, continue to monitor residuals (5) Intractable nausea and vomiting Current Visit: Yes Status: Acute Assessment and Plan: We will monitor closely now since restarting tube feed, was resolved, we will wait to initiate Reglan Since being nothing by mouth she has had no more complaint of nausea. EGD and colonoscopy: unremarkable (6) Hypokalemia Current Visit: Yes Status: Resolved Assessment and Plan: Likely secondary from her poor oral intake potassium is 3.2 today with Supplement via PEG. Anticipatory improve as her nutrition improves, k 3.3 today (7) Hypertension Current Visit: Yes Status: Chronic Assessment and Plan: Normotensivealthough lower for age, we will hold amlodipine, may initiate as soon as her nutrition improves (8) Parkinsons disease Current Visit: Yes Status: Chronic Assessment and Plan: on Carbidopa/levodopa resume via PEG, however in the setting of reglan which has been associated with parkinsonian syndrome (9) Depression Current Visit: Yes Status: Chronic Assessment and Plan: decrease sertraline from 150 mg to 100 mg by mouth daily. and buspirone 5mg/PO BID. mirtazapine for weight gain (10) Kidney stone on right side Current Visit: Yes Status: Acute Assessment and Plan: Patient is status post cystoscopy. right retrograde pyelogram and JJ stent pl acement. (11) UTI (urinary tract infection) Current Visit: Yes Status: Acute Assessment and Plan: U/C: rainey-sensitive E.Coli. Blood culture: no growth to date Plan - On ceftriaxone 1gm/IV daily, had 5 days was discontinue (12) History of DVT (deep vein thrombosis) Current Visit: Yes Status: Chronic Assessment and Plan: patient with a provoke DVT diagnosed about 3 months ago. Rivaroxaban held due to hematuria. However, hemoglobin has been stable at 8.4 we will reassess need for anticoagulation given that she is practically bedridden and high risk for DVT was restarted but hgb dropped so will hold for now pending lab workup (13) Hypomagnesemia Current Visit: Yes Status: Acute Assessment and Plan: mg 1.9 resolved (14) Hypophosphatemia Current Visit: Yes Status: Acute Assessment and Plan: Evidence of poor nutritional status and suspected to improve his nutrition improved, anticipates to improve, started on tube feed, high risk for re- feeding syndrome, phosphorus gradually trended up to 0.7, 3.2, 3.5 continue monitor - Time Spent with Patient Total time spent is greater than 50% in coordination of care (as documented) at patient's floor/unit and/or counseling patient: Internal Medicine: Result - Labs CBC & Chem 7: 10/15/18 11:51 10/15/18 11:51 Labs: Short CBC 10/15/18 Range/Units 11:51 WBC 6.8 (4.3-11.1) K/mcL Hgb 7.8 L (11.5-15.4) g/dL Hct 23.8 L (35.3-44.9) % Plt Count 202 (140-400) K/mcL Neutrophils # 3.6 (1.6-8.9) K/mcL BMP 10/15/18 11:51 Sodium 138 Potassium 3.3 L Chloride 106 Carbon Dioxide 28 BUN 4 L Creatinine 0.53 L Glucose 99 Calcium 8.1 L - ABG Interpretation ABG results: PT/INR, D-dimer PT 11.9 Seconds (9.4-12.1) 10/01/18 15:21 - Impressions Impressions Soft Tissue Neck CT 10/14/18 11:51 IMPRESSION: 1. No acute abnormality of the neck soft tissues within the limitations of a noncontrast study. 2. Chronic left mastoid disease. 3. Small left pleural effusion. D/ / 10/14/2018 13:28:42 Justin Morales MD / [place] [facility] Interpreting Provider: Justin Morales MD Consult Discharge Plan - Plan Referrals: Alessandro Vines DO [Primary Care Provider] - Holden Quevedo MD [Partnered Physician] - (4) Protein calorie malnutrition Qualifiers: Protein-calorie malnutrition severity: moderate Qualified Code(s): E44.0 - Moderate protein-calorie malnutrition (5) Intractable nausea and vomiting Qualifiers: Vomiting type: unspecified Qualified Code(s): R11.2 - Nausea with vomiting, unspecified (7) Hypertension Qualifiers: Hypertension type: essential hypertension Qualified Code(s): I10 - Essential (primary) hypertension (9) Depression Qualifiers: Depression Type: major depressive disorder Major depression recurrence: unspecified whether recurrent Major depression episode severity: unspecified (11) UTI (urinary tract infection) Qualifiers: Urinary tract infection type: site unspecified Hematuria presence: with hematuria Qualified Code(s): N39.0 - Urinary tract infection, site not specified; R31.9 - Hematuria, unspecified
[2018-10-15] MEDS: Mirtazapine 15 MG TABLET GTUBE SCH (21:17)
[2018-10-16 04:28] LABS: Basophils % 0.1 %; Eosinophils # 0.1 K/mcL (0.0-0.6); Hematocrit 24.5 % (35.3-44.9); Hemoglobin 7.7 g/dL (11.5-15.4); Immature Granulocytes % 0.7 % (0-4); Lymphocytes # 1.9 K/mcL (0.6-4.6); Mean Corpuscular HGB Conc 31.4 g/dL (31.6-35.5); Mean Corpuscular Hemoglobin 25.9 pg (28.0-33.3); Mean Corpuscular Volume 82.5 fL (83.0-100.0); Monocytes # 0.5 K/mcL (0.0-1.3); Monocytes % 6.3 %; Neutrophils # 4.8 K/mcL (1.6-8.9); Platelet Count 223 K/mcL (140-400); Red Blood Count 2.97 M/mcL (3.82-4.97); Segmented Neutrophils % 65.9 %; White Blood Count 7.3 K/mcL (4.3-11.1)
[2018-10-16 04:45] LABS: BUN/Creatinine Ratio 11 (6-26); Blood Urea Nitrogen 6 mg/dL (8-23); Calcium 8.1 mg/dL (8.6-10.3); Carbon Dioxide 27 mEq/L (23-29); Chloride 104 mEq/L (98-107); Glucose 104 mg/dL (70-105); Magnesium 1.6 mg/dL (1.6-2.6); Osmolality,Calculated 280 (280-300); Potassium 3.5 mEq/L (3.5-5.1); Sodium 136 mEq/L (136-145); eGFR For African Americans > 60 (> 60); eGFR For Non-African Americans > 60 (> 60)
[2018-10-16 04:46] LABS: % Iron Saturation 8 % (15-50); Iron 10 mcg/dL (50-170); Transferrin 90 mg/dL (203-362)
[2018-10-16 05:05] LABS: Ferritin 258 ng/mL (10-120)
[2018-10-16 05:08] LABS: Folate 3.5 ng/mL (3.0-16.0)
--- NOTE | 2018-10-16 10:13 | Event Note ---
<Rubia Shaffer - Last Filed: 10/16/18 10:10> Date of Encounter: 10/16/18 Time of Encounter: 10:10 Patient presents status post cystoscopy, right retrograde pyelogram and JJ stent placement from 10/04/2018 for a 4 mm right renal pelvis stone. Renal function remains stable and reassuring. We previously discussed at length with patient and her medical POA, granddaughter Levi Torres, about potential risks and benefits of stone extraction. Patient was previously scheduled this week for stone extraction. Given the patient's overall morbidity and new diagnosis of failure to thrive, patient will need to be evaluated in the urology clinic within one to two weeks of discharge to plan stone extraction versus stent exchange and/or removal with Dr. Quevedo. Urology will sign off, but we are always available as needed. <Danny Retana - Last Filed: 10/16/18 15:34> Date of Encounter: 10/16/18 I briefly went by and saw the patient and spoke to the patient. She had no further questions. Agree with plan as written by Rubia Shaffer
[2018-10-16] MEDS: Nystatin Ointment 15 GM TUBE TP SCH ×2 (10:24→16:45)
[2018-10-16] MEDS: Carbidopa/Levodopa 25/100 TABLET GTUBE SCH (10:24)
[2018-10-16] MEDS: D5% in 0.45% NACL 1,000 ML IVC SCH ×2 (12:34→13:38)
--- NOTE | 2018-10-16 12:46 | Event Note ---
Date of Encounter: 10/16/18 Time of Encounter: 11:00 Patient awake and alert. Flat affect. Able to answer yes/no questions, speech difficult to understand. No family present. Appears she is tolerating tube feeding well. Event this weekend where she was unable to speak, appears this has resolved. 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 Palliative care will follow at a distance.
--- NOTE | 2018-10-16 14:54 | Discharge Summary ---
- NOTES TO OUTPATIENT PROVIDER Notes to Outpatient Provider: Post hospital discharge for failure to thrive severe malnutrition. She would need outpatient urology follow-up and repeat CBC in 1 week Orders not resulted at time of discharge: Pending orders 10/15/18 15:51 Stool guiac [Occult Blood,Stool] [BF] Routine Date of Encounter: 10/16/18 Time of Encounter: 14:52 - Discharge Diagnosis (1) Failure to thrive in adult Priority: Primary Status: Chronic Assessment and Plan: On tube feeds at 50 miles per hour appears to be tolerating. Will dc back to snf with palliative Initial attempt for PEG placement today was unsuccessful. Repeat attempted by the surgical team was a successful today, was okayed by surgery will initiate nutrition, and a very slow rate so patient can tolerate tube feeds plan per Dietitian . Discussed with POA and granddaughter Coco Torres she can be reached at [phone]. She does admit that the patient should go hospice but she does not feel that patient wants to be a hospice candidate discussed with patient and she does confirm that she still does not want to be full hospice. (2) Protein calorie malnutrition Priority: Primary Status: Chronic Assessment and Plan: PEG tube placement today was successful. See plan as above. We will watch closely she is high risk for refeeding syndrome, tube feed has been titrated up slowly now at 50ml/hr continue to monitor residuals, 50 ml free sterile water q4h as tolerated Qualifiers: Protein-calorie malnutrition severity: moderate Qualified Code(s): E44.0 - Moderate protein-calorie malnutrition (3) Microcytic anemia Priority: Secondary Status: Acute Assessment and Plan: Hemoglobin has been up and down no documentation of any bleed. Workup initiated. Hemoglobin 7.8-707 at dc stable, will hold xarelto for now pending workup workup revealed anemia of chronic disease stool guaiac was negative Will resume Xarelto upon discharge given that she is high risk for thromboembolism (4) Motor aphasia Priority: Secondary Status: Acute Assessment and Plan: CT head and CT neck without contrast were both unremarkable for any acute abnormality. Suspect dry mucosa membranes, laryngitis lower on differential t april she has no sore throat, mild improvement with moistening of oral mucosa with the oral care supplies. Patient's granddaughter and POA stated that when patient had prior strokes, her only presenting symptoms is motor aphasia, neuro exam was limited due to prior neurological deficits from prior strokes, oral exam does reveal extremely dry oral mucosa, initial attempts to moisten patient's oral mucosa with oral care did not improve her ability to vocalize. Laryngitis is a possibility however would obtain CT of the neck and soft tissue as well as CT of the head giving the aforementioned symptoms of patient's typical presentation of stroke (5) Intractable nausea and vomiting Priority: Secondary Status: Acute Assessment and Plan: We will monitor closely now since restarting tube feed, was resolved, we will wait to initiate Reglan Since being nothing by mouth she has had no more complaint of nausea. EGD and colonoscopy: unremarkable Qualifiers: Vomiting type: unspecified Qualified Code(s): R11.2 - Nausea with vomiting, unspecified (6) Hypokalemia Priority: Secondary Status: Resolved Assessment and Plan: Likely secondary from her poor oral Supplement via PEG. resolved (7) Hypertension Priority: Secondary Status: Chronic Assessment and Plan: Normotensive although lower for age, resume amlodipine Qualifiers: Hypertension type: essential hypertension Qualified Code(s): I10 - Essential (primary) hypertension (8) Parkinsons disease Priority: Secondary Status: Chronic Assessment and Plan: on Carbidopa/levodopa resume via PEG, however in the setting of reglan which has been associated with parkinsonian syndrome (9) Depression Priority: Secondary Status: Chronic Assessment and Plan: sertraline, buspirone and mirtazapine for weight gain Qualifiers: Depression Type: major depressive disorder Major depression recurrence: unspecified whether recurrent Major depression episode severity: unspecified Qualified Code(s): F32.9 - Major depressive disorder, single episode, unspecified (10) Kidney stone on right side Priority: Secondary Status: Acute Assessment and Plan: Patient is status post cystoscopy. right retrograde pyelogram and JJ stent placement. urology out patient visit in 2 weeks (11) UTI (urinary tract infection) Priority: Secondary Status: Acute Assessment and Plan: U/C: rainey-sensitive E.Coli. Blood culture: no growth to date Plan - On ceftriaxone 1gm/IV daily, had 5 days was discontinue Qualifiers: Urinary tract infection type: site unspecified Hematuria presence: with hematuria Qualified Code(s): N39.0 - Urinary tract infection, site not specified; R31.9 - Hematuria, unspecified (12) History of DVT (deep vein thrombosis) Priority: Secondary Status: Chronic Assessment and Plan: patient with a provoke DVT diagnosed about 3 months ago. Rivaroxaban held due to hematuria. Do not anticipate patient to be ambulatory, she seems bedridden as such high risk for thromboembolism, we will restart her xarelto. Hgb stable at 7.7 (13) Hypomagnesemia Priority: Secondary Status: Acute Assessment and Plan: mg 1.9 resolved (14) Hypophosphatemia Priority: Secondary Status: Acute Assessment and Plan: Evidence of poor nutritional status and suspected to improve his nutrition improved, anticipates to improve, started on tube feed, high risk for re- feeding syndrome, phosphorus gradually trended up to 0.7, 3.2, 3.5 continue monitor Hospital course: Ms. Hensley is a 78 year old female hospitalized for nausea and vomiting noted to be severely malnourished. There were deliberations regarding goals of care and treatment plan which further delayed and prolonged her hospitalization. Patient finally got the PEG placed and was started on tube feeds but due to her prolonged days of not eating with concern for refeeding syndrome her tube feed was gradually titrated up. She is currently at 50 mL an hour as well as 50 ML's of free water every 4 hours. Patient appears to be tolerating tube feed. Given her history of parkinsonian syndrome versus Parkinson disease will be hesitant in reinitiating metoclopramide. Discharge discussed with: patient, family, nurse, social work, case management, content management consultant - Time Spent with Patient Total time spent providing and/or coordinating discharge services: 45 mins Specific discharge activities: Please make sure to follow up with urology within 2 weeks, and a primary care provider within one week - Discharge Medications Prescriptions: New Buspirone HCl [Buspar] 5 mg GTUBE BID #60 tablet Atorvastatin [Lipitor] 40 mg GTUBE HS #30 tablet Nystatin Ointment [Mycostatin Ointment] 1 appl TP TID #30 tube OxyCODONE Oral Soln [OxyCODONE ORAL SOLN] 5 mg GTUBE Q6H PRN 7 Days #28 ud.liq PRN Reason: Pain Lansoprazole [Prevacid] 30 mg GTUBE QAM #30 capsule. Mirtazapine [Remeron] 30 mg GTUBE HS #30 tablet Carbidopa/Levodopa 25/100 [Sinemet 25/100] 1 tab GTUBE BID #60 tablet Bethanechol [Urecholine] 25 mg GTUBE BID #60 tablet Rivaroxaban [Xarelto] 20 mg GTUBE QDPC #30 tablet Sertraline [Zoloft] 100 mg GTUBE DAILY #30 tablet Changed Gabapentin [Neurontin] 300 mg GTUBE BID #60 capsule Ondansetron [Zofran ODT] 8 mg SL Q6-8H PRN #30 tab.rapdis PRN Reason: Nausea And Vomiting Discontinued Carbidopa/Levodopa ER 50/200 [Sinemet ER 50-200 Tab] 1 tab PO BID Sertraline [Zoloft] 100 mg PO DAILY Atorvastatin [Lipitor] 40 mg PO HS Amlodipine Besylate 10 mg PO DAILY Bethanechol [Urecholine] 25 mg PO BID Buspirone HCl [Buspar] 5 mg PO BID Lansoprazole [Prevacid] 30 mg PO DAILY Rivaroxaban [Xarelto] 15 mg PO BID #60 tablet Oxybutynin [Ditropan] 5 mg PO BID Promethazine [Phenergan] 25 mg RC Q6H Tramadol HCl [Ultram] 50 mg PO Q4H PRN PRN Reason: Pain Sertraline [Zoloft] 50 mg PO DAILY Sucralfate [Carafate] 1 gm PO DAILY Home Medications: Atorvastatin [Lipitor] 40 mg GTUBE HS #30 tablet 10/16/18 [Rx] Bethanechol [Urecholine] 25 mg GTUBE BID #60 tablet 10/16/18 [Rx] Buspirone HCl [Buspar] 5 mg GTUBE BID #60 tablet 10/16/18 [Rx] Carbidopa/Levodopa 25/100 [Sinemet 25/100] 1 tab GTUBE BID #60 tablet 10/16/18 [Rx] Gabapentin [Neurontin] 300 mg GTUBE BID #60 capsule 10/16/18 [Rx] Lansoprazole [Prevacid] 30 mg GTUBE QAM #30 capsule. 10/16/18 [Rx] Mirtazapine [Remeron] 30 mg GTUBE HS #30 tablet 10/16/18 [Rx] Nystatin Ointment [Mycostatin Ointment] 1 appl TP TID #30 tube 10/16/18 [Rx] Ondansetron [Zofran ODT] 8 mg SL Q6-8H PRN #30 tab.rapdis 10/16/18 [Rx] OxyCODONE Oral Soln [OxyCODONE ORAL SOLN] 5 mg GTUBE Q6H PRN 7 Days #28 ud.liq 10/16/18 [Rx] Rivaroxaban [Xarelto] 20 mg GTUBE QDPC #30 tablet 10/16/18 [Rx] Sertraline [Zoloft] 100 mg GTUBE DAILY #30 tablet 10/16/18 [Rx] Allergies/Adverse Reactions: Allergy/AdvReac Type Severity Reaction Status Date / Time Sulfa (Sulfonamide Allergy Hives Verified 10/02/18 23:40 Antibiotics) Date of admission: 10/03/18 15:03 Primary care physician: Anthony Vines DO Consults: 10/01/18 16:16 Consult to Urology [CONS] Stat Consulting Provider: Urology [place] Reason for Consult: 4mm stone with UTI Call Completed: No 10/01/18 18:01 Consult to Gastroenterology [CONS] Routine Consulting Provider: Gastroenterology Alexus Reason for Consult: Colonoscopy with biopsy Call Completed: No 10/01/18 18:15 Consult to Nutrition [CONS] Routine Comment: Consulting Provider: NUTRITION Reason for Dietary Consult: MST Score Consult to Radio Television Technical Director [CONS] Routine Reason for SW Consult: from [facility] on hospice 10/06/18 08:34 Consult to Palliative Care [CONS] Routine Comment: Consulting Provider: Palliative Care [place] Reason for Consult: failure to thrive. discuss fpc goal with family Call Completed: No 10/09/18 09:02 Consult to Physical Therapy [CONS] Routine Comment: Evaluate, develop and implement POC Reason for Consult: deconditioning, family reports more weak than patients baseline Does patient have active BEDREST order?: No Is patient medically & hemodynamically stable?: Yes Patient assessed for mobility or mobilized this visit?: No 10/09/18 09:03 Consult to Occupational Therapy [CONS] Routine Comment: Evaluate, develop and implement POC Reason for Consult: deconditioning, family reports more weak than patients baseline Does patient have active BEDREST order?: No Is patient medically & hemodynamically stable?: Yes Patient assessed for mobility or mobilized this visit?: No 10/11/18 10:18 Consult to Surgery [CONS] Routine Consulting Provider: Acute Care Surgery Reason for Consult: PEG placement per family request Time Notified: 10:19 Call Completed: Yes 10/13/18 12:05 consult to custom grinder [Consult to Nutrition] [CONS] Routine Comment: Consulting Provider: NUTRITION Reason for Dietary Consult: Tube Feed Start & Manage Discharging clinician: Patricia Sharp Anticipated date of discharge: 10/16/18 - Constitutional Vitals: Temp Pulse Resp BP Pulse Ox 99.5 F 71 14 99/63 96 10/16/18 12:44 10/16/18 12:44 10/16/18 12:44 10/16/18 12:44 10/16/18 12:44 General appearance: Present: A&O X 3, no acute distress Exam: GEN: Emaciated female NAD, A&O x 3, Pleasant and conversant SKIN: [place] warm acyanotic not jaundice HEART: RRR, no murmurs LUNGS: CTA no wheeze or crackles, overall non labored ABDOMEN; Soft, non tender or distended, BS x 4 normactive, PEG tube intact EXT: No LE edema, Pedal pulses 1+, radial pulses 2+ PSYCH: Mood and affect is appropriate - Patient Status Disposition: Hospice - Home Condition: Fair Functional capacity at discharge: bed bound Overall status at discharge: patient is progressing back to baseline - Discharge Instructions Follow Up With: Alessandro Vines DO [Primary Care Provider] - Holden Quevedo MD [Partnered Physician] - - Diet and Activity Activity: resume usual activities as tolerated Diet: other (Please keep tube feed at 50ml /hr plus 50ml of sterile free water q 4 h)
--- NOTE | 2018-10-16 15:38 | Physician Discharge Referral ---
Home Health/Hosp Referral Info Transfer to: Hospice Provider in Charge Post Discharge: Roof Truss Detailer - Diagnosis (1) Failure to thrive in adult Priority: Primary Status: Chronic (2) Protein calorie malnutrition Priority: Primary Status: Chronic (3) Microcytic anemia Priority: Secondary Status: Acute (4) Motor aphasia Priority: Secondary Status: Acute (5) Intractable nausea and vomiting Priority: Secondary Status: Acute (6) Hypokalemia Priority: Secondary Status: Resolved (7) Hypertension Priority: Secondary Status: Chronic (8) Parkinsons disease Priority: Secondary Status: Chronic (9) Depression Priority: Secondary Status: Chronic (10) Kidney stone on right side Priority: Secondary Status: Acute (11) UTI (urinary tract infection) Priority: Secondary Status: Acute (12) History of DVT (deep vein thrombosis) Priority: Secondary Status: Chronic (13) Hypomagnesemia Priority: Secondary Status: Acute (14) Hypophosphatemia Priority: Secondary Status: Acute - Respiratory Orders Smoking Cessation: Smoking cessation has been advised. For more information, call the [place] Tobacco Quit Line at 4-897-GTFS-NOW. - Diet/Nutrition Diet/Nutrition: List: On tube feed at 50ml/hr plus 50ml q 4 h of sterile free water - Activity Activity Orders: Up ad ron - Services Needed Following services are medically necessary services: Nursing, Home Health Aide, Physical Therapy, Occupational Therapy, Speech Therapy - Transfer Medications Prescriptions: Buspirone HCl [Buspar] 5 mg GTUBE BID #60 tablet Atorvastatin [Lipitor] 40 mg GTUBE HS #30 tablet Nystatin Ointment [Mycostatin Ointment] 1 appl TP TID #30 tube Gabapentin [Neurontin] 300 mg GTUBE BID #60 capsule OxyCODONE Oral Soln [OxyCODONE ORAL SOLN] 5 mg GTUBE Q6H PRN 7 Days #28 ud.liq PRN Reason: Pain Lansoprazole [Prevacid] 30 mg GTUBE QAM #30 capsule. Mirtazapine [Remeron] 30 mg GTUBE HS #30 tablet Carbidopa/Levodopa 25/100 [Sinemet 25/100] 1 tab GTUBE BID #60 tablet Bethanechol [Urecholine] 25 mg GTUBE BID #60 tablet Rivaroxaban [Xarelto] 20 mg GTUBE QDPC #30 tablet Ondansetron [Zofran ODT] 8 mg SL Q6-8H PRN #30 tab.rapdis PRN Reason: Nausea And Vomiting Sertraline [Zoloft] 100 mg GTUBE DAILY #30 tablet Home Medications: Atorvastatin [Lipitor] 40 mg GTUBE HS #30 tablet 10/16/18 [Rx] Bethanechol [Urecholine] 25 mg GTUBE BID #60 tablet 10/16/18 [Rx] Buspirone HCl [Buspar] 5 mg GTUBE BID #60 tablet 10/16/18 [Rx] Carbidopa/Levodopa 25/100 [Sinemet 25/100] 1 tab GTUBE BID #60 tablet 10/16/18 [Rx] Gabapentin [Neurontin] 300 mg GTUBE BID #60 capsule 10/16/18 [Rx] Lansoprazole [Prevacid] 30 mg GTUBE QAM #30 capsule.dr 10/16/18 [Rx] Mirtazapine [Remeron] 30 mg GTUBE HS #30 tablet 10/16/18 [Rx] Nystatin Ointment [Mycostatin Ointment] 1 appl TP TID #30 tube 10/16/18 [Rx] Ondansetron [Zofran ODT] 8 mg SL Q6-8H PRN #30 tab.rapdis 10/16/18 [Rx] OxyCODONE Oral Soln [OxyCODONE ORAL SOLN] 5 mg GTUBE Q6H PRN 7 Days #28 ud.liq 10/16/18 [Rx] Rivaroxaban [Xarelto] 20 mg GTUBE QDPC #30 tablet 10/16/18 [Rx] Sertraline [Zoloft] 100 mg GTUBE DAILY #30 tablet 10/16/18 [Rx] Allergies/Adverse Reactions: Allergy/AdvReac Type Severity Reaction Status Date / Time Sulfa (Sulfonamide Allergy Hives Verified 10/02/18 23:40 Antibiotics) Certification: Further, I certify that my clinical findings support that this patient is homebound (i.e. absences from home require considerable and taxing effort and are for medical reasons or taoism services or infrequently or short duration when for other reasons) because: Homebound Reason: Leaving home requires considerable and taxing effort due to condition Attestation: My signature below is to certify that this patient is under my care and that I, or nurse practitioner, or a physician's assistant women's soccer coach working with me, has a [id number] encounter with this patient.
[2018-10-16 15:48] VITALS: BP 89/52
== END 2018-10-16 19:07 | DRG 988 ==
LOC: EMEROOARM 14:54 → 3ANU 14:54 → SUATTDRO 16:38 → 3ANU 17:46 → SUATTDRO 10-03 15:03
PROVIDERS: ADMIT Student in an Organized Health Care Education/Training Program; ATTEND Pharmacist
PROC: ENDOEBX (2018-10-03 13:40)

== ENCOUNTER 2020-08-21 14:37 | Inpatient (IN) ==
[2020-08-21] MEDS ORDERED: Isovue-370 500 ML BOTTLE IVP ONE (15:27)
[2020-08-21 15:49] LABS: Hematocrit 43.5 % (35.3-44.9); Hemoglobin 13.8 g/dL (11.5-15.4); Mean Corpuscular HGB Conc 31.7 g/dL (31.6-35.5); Mean Corpuscular Hemoglobin 27.8 pg (28.0-33.3); Mean Corpuscular Volume 87.5 fL (83.0-100.0); Mean Platelet Volume 10.3 fL (9.4-12.4); Platelet Count 228 K/mcL (140-400); Red Blood Count 4.97 M/mcL (3.82-4.97); White Blood Count 11.4 K/mcL (4.3-11.1)
[2020-08-21 17:02] LABS: BUN/Creatinine Ratio 26 (6-26); Blood Urea Nitrogen 20 mg/dL (8-23); Calcium 9.9 mg/dL (8.6-10.3); Carbon Dioxide 27 mEq/L (23-29); Chloride 106 mEq/L (98-107); Glucose 107 mg/dL (70-105); Osmolality,Calculated 293 (280-300); Potassium 4.5 mEq/L (3.5-5.1); Sodium 140 mEq/L (136-145); Troponin I < 0.03 ng/mL (< 0.04); eGFR For African Americans > 60 (> 60); eGFR For Non-African Americans > 60 (> 60)
[2020-08-21 17:29] LABS: Bilirubin,Urine Negative (Negative); Blood,Urine Negative (Negative); Clarity,Urine Clear (Clear); Color,Urine Colorless (Yellow); Glucose,Urine (UA) Normal (Normal); Ketones,Urine Negative (Negative); Leukocyte Esterase,Urine Trace (Negative); Mucus,Urine Few per lpf (None-Few); Nitrite,Urine Negative (Negative); Protein,Urine Negative (Neg-Trace); RBC,Urine 0-3 per hpf (0-3); Squamous Epithelial Cell,Urine Few per hpf (None-Few); Urobilinogen,Urine Normal (Normal)
[2020-08-21] MEDS ORDERED: Perflutren Lipid Microsphere 1.3 ML in 0.9 % Sodium Chloride 8.7 ML IVP PRN (19:50)
[2020-08-21] MEDS ORDERED: Carbidopa/Levodopa 25/100 TABLET PO SCH (21:00)
[2020-08-21] MEDS: Gabapentin 300 MG CAPSULE PO SCH (22:08)
[2020-08-21] MEDS: *HR* Rivaroxaban 10 MG TABLET PO SCH (22:10)
[2020-08-22] MEDS: Nystatin POWDER 30 GM BOTTLE TP SCH ×4 (01:01→20:15)
[2020-08-22 03:23] LABS: INR 2.2; Prothrombin Time 25.2 Seconds (9.4-12.1)
[2020-08-22 03:38] LABS: Alanine Aminotransferase 4 Units/L (7-52); Albumin 4.3 g/dL (3.5-5.7); Albumin/Globulin Ratio 1.8 (1.1-2.2); Alkaline Phosphatase 93 Units/L (34-104); Aspartate Amino Transferase 19 Units/L (13-39); BUN/Creatinine Ratio 23 (6-26); Bilirubin,Total 0.7 mg/dL (0.3-1.0); Blood Urea Nitrogen 15 mg/dL (8-23); Calcium 9.8 mg/dL (8.6-10.3); Carbon Dioxide 26 mEq/L (23-29); Chloride 106 mEq/L (98-107); Chol/HDL Ratio 2.3 (0-4.9); Cholesterol 138 mg/dL (< 200); Globulin 2.4 g/dL (2.4-3.5); Glucose 109 mg/dL (70-105); HDL Cholesterol 60 mg/dL (40-59); LDL Cholesterol,Calculated 60 mg/dL (< 100); Osmolality,Calculated 289 (280-300); Potassium 3.9 mEq/L (3.5-5.1); Sodium 139 mEq/L (136-145); Total Protein 6.7 g/dL (6.4-8.9); Triglycerides 89 mg/dL (< 150); eGFR For African Americans > 60 (> 60); eGFR For Non-African Americans > 60 (> 60)
[2020-08-22 03:39] LABS: Troponin I < 0.03 ng/mL (< 0.04)
[2020-08-22 05:17] LABS: Estimated Average Glucose 117 mg/dl; Hemoglobin A1C 5.7 %
[2020-08-22] MEDS ORDERED: amLODIPine 5 MG TABLET PO SCH (09:00)
[2020-08-22] MEDS ORDERED: Gabapentin 300 MG CAPSULE PO SCH (09:00)
[2020-08-22] MEDS ORDERED: NON-FORMULARY MEDICATION 1 EACH EACH (Rivaroxaban [Xarelto] 20 MG Tablet) PO SCH (09:00)
[2020-08-22] MEDS: tiZANidine 4 MG TABLET PO SCH ×2 (09:05→20:09)
[2020-08-22] MEDS: lisinopriL 10 MG TABLET PO SCH (09:05)
[2020-08-22] MEDS: Carbidopa/Levodopa 25/100 TABLET PO SCH ×3 (09:05→20:10)
[2020-08-22] MEDS: Gabapentin 300 MG CAPSULE PO SCH ×2 (09:05→20:09)
[2020-08-22] MEDS: Aspirin 81 MG TAB.CHEW PO SCH (09:05)
[2020-08-22] MEDS: Mirtazapine 15 MG TABLET PO SCH (09:05)
[2020-08-22] MEDS ORDERED: 0.9 % Sodium Chloride 250 ML ONE (11:41)
[2020-08-22] MEDS: *HR* Rivaroxaban 10 MG TABLET PO SCH (17:18)
[2020-08-22] MEDS ORDERED: NON-FORMULARY MEDICATION 1 EACH EACH (Atorvastatin Calcium 80 MG Tablet) PO SCH (21:00)
[2020-08-23] MEDS: Gabapentin 300 MG CAPSULE PO SCH ×2 (08:14→20:47)
[2020-08-23] MEDS: tiZANidine 4 MG TABLET PO SCH ×2 (08:15→20:47)
[2020-08-23] MEDS: Aspirin 81 MG TAB.CHEW PO SCH (08:15)
[2020-08-23] MEDS: lisinopriL 10 MG TABLET PO SCH (08:15)
[2020-08-23] MEDS: Carbidopa/Levodopa 25/100 TABLET PO SCH ×3 (08:16→20:48)
[2020-08-23] MEDS: Mirtazapine 15 MG TABLET PO SCH (08:16)
[2020-08-23] MEDS: Nystatin POWDER 30 GM BOTTLE TP SCH ×3 (08:17→22:22)
[2020-08-23] MEDS: cefTRIAXone 1,000 MG in Water for inj. (sterile) 10 ML IVP SCH (10:50)
[2020-08-23] MEDS: *HR* Rivaroxaban 10 MG TABLET PO SCH (18:44)
[2020-08-23 18:49] LABS: Folate > 22.3 ng/mL (3.0-16.0); Vitamin B12 385 pg/mL (250-1100)
[2020-08-24] MEDS: Gabapentin 300 MG CAPSULE PO SCH ×2 (08:22→21:04)
[2020-08-24] MEDS: Carbidopa/Levodopa 25/100 TABLET PO SCH ×3 (08:22→21:04)
[2020-08-24] MEDS: Aspirin 81 MG TAB.CHEW PO SCH (08:22)
[2020-08-24] MEDS: Mirtazapine 15 MG TABLET PO SCH (08:22)
[2020-08-24] MEDS: lisinopriL 10 MG TABLET PO SCH (08:23)
[2020-08-24] MEDS: Cyanocobalamin (B-12) 1,000 MCG/ML VIAL SQ SCH (08:24)
[2020-08-24] MEDS: tiZANidine 4 MG TABLET PO SCH ×2 (08:24→21:04)
[2020-08-24] MEDS: Nystatin POWDER 30 GM BOTTLE TP SCH ×3 (08:25→21:05)
[2020-08-24] MEDS: cefTRIAXone 1,000 MG in Water for inj. (sterile) 10 ML IVP SCH (08:25)
[2020-08-24] MEDS ORDERED: *HR* OxyCODONE/APAP 5/325 TABLET PO PRN (14:42)
[2020-08-24] MEDS: *HR* Rivaroxaban 10 MG TABLET PO SCH (17:52)
[2020-08-24] MEDS ORDERED: Acetaminophen 325 MG TABLET PO PRN (21:27)
[2020-08-25] MEDS: Cyanocobalamin (B-12) 1,000 MCG/ML VIAL SQ SCH (08:24)
[2020-08-25] MEDS: cefTRIAXone 1,000 MG in Water for inj. (sterile) 10 ML IVP SCH (08:24)
[2020-08-25] MEDS: Carbidopa/Levodopa 25/100 TABLET PO SCH (08:25)
[2020-08-25] MEDS: Gabapentin 300 MG CAPSULE PO SCH (08:25)
[2020-08-25] MEDS: tiZANidine 4 MG TABLET PO SCH (08:25)
[2020-08-25] MEDS: Aspirin 81 MG TAB.CHEW PO SCH (08:26)
[2020-08-25] MEDS: Mirtazapine 15 MG TABLET PO SCH (08:26)
[2020-08-25] MEDS: lisinopriL 10 MG TABLET PO SCH (08:26)
[2020-08-25] MEDS: Nystatin POWDER 30 GM BOTTLE TP SCH (08:33)
[2020-08-25 11:23] VITALS: BP 113/75
== END 2020-08-25 15:35 | DRG 69 ==
LOC: 3NENU 14:37 → EMEROOARM 14:37 → 3NENU 19:40 → SUATTDRO 08-22 13:15
PROVIDERS: ADMIT Pharmacist; ATTEND Internal Medicine

== ENCOUNTER 2021-09-10 08:33 | Inpatient (IN) ==
[2021-09-10 09:06] LABS: Basophils % 0.3 %; Eosinophils % 0.1 %; Hematocrit 41.5 % (35.3-44.9); Hemoglobin 13.5 g/dL (11.5-15.4); Immature Granulocytes % 0.5 % (0-4); Lymphocytes # 2.2 K/mcL (0.6-4.6); Lymphocytes % 16.1 %; Mean Corpuscular HGB Conc 32.5 g/dL (31.6-35.5); Mean Corpuscular Hemoglobin 29.8 pg (28.0-33.3); Mean Corpuscular Volume 91.6 fL (83.0-100.0); Mean Platelet Volume 10.5 fL (9.4-12.4); Monocytes # 0.5 K/mcL (0.0-1.3); Monocytes % 3.9 %; Neutrophils # 10.8 K/mcL (1.6-8.9); Platelet Count 197 K/mcL (140-400); Red Blood Count 4.53 M/mcL (3.82-4.97); Red Cell Distribution Width 13.3 % (11.5-14.5); Segmented Neutrophils % 79.1 %; White Blood Count 13.7 K/mcL (4.3-11.1)
[2021-09-10 09:18] LABS: INR 2.2; Prothrombin Time 24.1 Seconds (9.4-12.1)
[2021-09-10 09:20] LABS: Activated Partial Thrombo Time 39.4 Seconds (26.0-36.0)
[2021-09-10 09:25] LABS: Alanine Aminotransferase 11 Units/L (7-52); Albumin 4.6 g/dL (3.5-5.7); Albumin/Globulin Ratio 1.8 (1.1-2.2); Alkaline Phosphatase 78 Units/L (34-104); Aspartate Amino Transferase 21 Units/L (13-39); BUN/Creatinine Ratio 27 (6-26); Bilirubin,Total 0.7 mg/dL (0.3-1.0); Blood Urea Nitrogen 22 mg/dL (8-23); Calcium 10.6 mg/dL (8.6-10.3); Carbon Dioxide 29 mEq/L (23-29); Chloride 106 mEq/L (98-107); Globulin 2.6 g/dL (2.4-3.5); Glucose 139 mg/dL (70-105); Osmolality,Calculated 302 (280-300); Potassium 4.1 mEq/L (3.5-5.1); Sodium 143 mEq/L (136-145); Total Protein 7.2 g/dL (6.4-8.9); eGFR For African Americans > 60 (> 60); eGFR For Non-African Americans > 60 (> 60)
[2021-09-10] MEDS ORDERED: *HR* FentaNYL (PF) 100 MCG/2 ML VIAL IVP ONE (09:30)
[2021-09-10 09:53] LABS: Bacteria,Urine Moderate per hpf (None-Few); Bilirubin,Urine Negative (Negative); Blood,Urine Negative (Negative); Clarity,Urine Clear (Clear); Color,Urine Light-Yellow (Yellow); Glucose,Urine (UA) Normal (Normal); Ketones,Urine Negative (Negative); Leukocyte Esterase,Urine Small (Negative); Mucus,Urine Few per lpf (None-Few); Nitrite,Urine Negative (Negative); Protein,Urine Negative (Neg-Trace); RBC,Urine 0-3 per hpf (0-3); Specific Gravity,Urine 1.018 (1.010-1.025); Squamous Epithelial Cell,Urine Few per hpf (None-Few); Urobilinogen,Urine Normal (Normal)
[2021-09-10] MEDS ORDERED: Naloxone 0.4 MG/ML INJ IVP PRN (10:17)
[2021-09-10] MEDS ORDERED: *HR* HYDROcodone/Acet 5/325 mg TABLET PO PRN (10:17)
[2021-09-10] MEDS ORDERED: Ondansetron 4 MG/2 ML VIAL IVP PRN (10:17)
[2021-09-10] MEDS ORDERED: *HR* OxyCODONE Immed Rel 5 MG TABLET PO PRN (10:17)
[2021-09-10] MEDS ORDERED: D5% in Water 1,000 ML IVC PRN (10:21)
[2021-09-10] MEDS ORDERED: Dextrose Gel 15 GM/37.5 ML TUBE PO PRN ×2 (10:21)
[2021-09-10] MEDS ORDERED: *HR* Dextrose 50 % in Water (Syg) 50 ML SYRINGE IVP PRN (10:21)
[2021-09-10] MEDS: cefTRIAXone 1,000 MG in 0.9 % Sodium Chloride 10 ML IVP SCH (11:01)
[2021-09-10 12:32] LABS: Estimated Average Glucose 108 mg/dl; Hemoglobin A1C 5.4 %
[2021-09-10] MEDS: Insulin LISPRO 300 UNITS/3 ML VIAL SUBQ SCH ×2 (15:48→21:39)
[2021-09-10] MEDS: Carbidopa/Levodopa 25/100 TABLET PO SCH ×2 (16:42→21:39)
[2021-09-10] MEDS: Acetaminophen 325 MG TABLET PO PRN (16:44)
[2021-09-11] MEDS: Insulin LISPRO 300 UNITS/3 ML VIAL SUBQ SCH ×3 (00:24→12:37)
[2021-09-11 04:27] LABS: Basophils % 0.3 %; Eosinophils # 0.1 K/mcL (0.0-0.6); Eosinophils % 0.9 %; Hematocrit 39.8 % (35.3-44.9); Hemoglobin 13.1 g/dL (11.5-15.4); Immature Granulocytes % 0.4 % (0-4); Lymphocytes # 2.4 K/mcL (0.6-4.6); Lymphocytes % 20.5 %; Mean Corpuscular HGB Conc 32.9 g/dL (31.6-35.5); Mean Corpuscular Hemoglobin 29.9 pg (28.0-33.3); Mean Corpuscular Volume 90.9 fL (83.0-100.0); Mean Platelet Volume 10.4 fL (9.4-12.4); Monocytes # 0.7 K/mcL (0.0-1.3); Monocytes % 6.2 %; Neutrophils # 8.4 K/mcL (1.6-8.9); Platelet Count 162 K/mcL (140-400); Red Blood Count 4.38 M/mcL (3.82-4.97); Red Cell Distribution Width 13.3 % (11.5-14.5); Segmented Neutrophils % 71.7 %; White Blood Count 11.7 K/mcL (4.3-11.1)
[2021-09-11 04:46] LABS: BUN/Creatinine Ratio 22 (6-26); Blood Urea Nitrogen 17 mg/dL (8-23); Carbon Dioxide 28 mEq/L (23-29); Chloride 102 mEq/L (98-107); Glucose 126 mg/dL (70-105); Osmolality,Calculated 291 (280-300); Potassium 3.8 mEq/L (3.5-5.1); Sodium 139 mEq/L (136-145); eGFR For African Americans > 60 (> 60); eGFR For Non-African Americans > 60 (> 60)
[2021-09-11] MEDS: Acetaminophen 325 MG TABLET PO PRN (06:08)
[2021-09-11] MEDS: Carbidopa/Levodopa 25/100 TABLET PO SCH ×2 (07:45→20:59)
[2021-09-11] MEDS ORDERED: amLODIPine 5 MG TABLET PO SCH (09:00)
[2021-09-11] MEDS ORDERED: Aspirin Enteric Coated 81 MG Tablet PO SCH (09:00)
[2021-09-11] MEDS ORDERED: ACETAMINOPHEN 325 MG PO SCH (09:00)
[2021-09-11] MEDS ORDERED: Gabapentin 400 MG CAPSULE PO SCH (09:00)
[2021-09-11] MEDS ORDERED: TOTAL JOINT MIXTURE (100ML) INTRAART ONE (10:30)
[2021-09-11] MEDS ORDERED: Povidone-Iodine 45 ML, Sodium Chloride IRRigation 1,000 ML IR ONE (10:30)
[2021-09-11] MEDS: cefTRIAXone 1,000 MG in 0.9 % Sodium Chloride 10 ML IVP SCH (11:00)
[2021-09-11] MEDS ORDERED: Ipratropium Neb 0.5 MG NEBULIZER IH PRN (13:52)
[2021-09-11] MEDS ORDERED: Acetaminophen IV 1,000 MG/100 ML BAG IVPB PRN (13:52)
[2021-09-11] MEDS ORDERED: Albuterol 2.5 MG/3 ML NEBULIZER IH PRN (13:52)
[2021-09-11] MEDS ORDERED: *HR* OxyCODONE/APAP 5/325 TABLET PO PRN (13:52)
[2021-09-11] MEDS ORDERED: Ondansetron 4 MG/2 ML VIAL IVP PRN ×3 (13:52→17:10)
[2021-09-11] MEDS ORDERED: *HR* Meperidine 25 MG/ML SYRINGE IVP PRN (13:52)
[2021-09-11] MEDS ORDERED: *HR* Labetalol 20 MG/4 ML SYRINGE IVP PRN (13:52)
[2021-09-11] MEDS ORDERED: flumazeniL 0.5 MG/5 ML VIAL IVP PRN (13:52)
[2021-09-11] MEDS ORDERED: *HR* HYDROmorphone PF 0.5 MG/0.5 ML SYRINGE IVP PRN (13:52)
[2021-09-11] MEDS ORDERED: Vancomycin 1,000 MG VIAL ONE (13:54)
[2021-09-11] MEDS ORDERED: *HR* FentaNYL (PF) 100 MCG/2 ML VIAL ONE (13:54)
[2021-09-11] MEDS ORDERED: *HR* Succinylcholine 200 MG/10 ML VIAL IVP ONE (14:05)
[2021-09-11] MEDS ORDERED: *HR* Propofol 200 MG/20 ML VIAL IVP ONE (14:05)
[2021-09-11] MEDS ORDERED: *HR* Rocuronium Bromide 50 MG/5 ML VIAL ONE (14:05)
[2021-09-11] MEDS ORDERED: Lidocaine -MPF 2% 5 ML VIAL ONE (14:05)
[2021-09-11] MEDS ORDERED: Tranexamic Acid 1,000 MG/10 ML VIAL ONE (14:29)
[2021-09-11] MEDS ORDERED: Sugammadex Sodium 200 MG/2 ML VIAL IV ONE (14:57)
[2021-09-11] MEDS ORDERED: Dextrose Gel 15 GM/37.5 ML TUBE PO PRN ×2 (17:10)
[2021-09-11] MEDS ORDERED: MOM Conc 10 ML UD.LIQ PO PRN (17:10)
[2021-09-11] MEDS ORDERED: Naloxone 0.4 MG/ML INJ IVP PRN ×2 (17:10)
[2021-09-11] MEDS ORDERED: D5% in Water 1,000 ML IVC PRN (17:10)
[2021-09-11] MEDS ORDERED: Ringers Solution, Lactated 1,000 ML IVC SCH (17:10)
[2021-09-11] MEDS ORDERED: *HR* OxyCODONE Immed Rel 5 MG TABLET PO PRN (17:10)
[2021-09-11] MEDS ORDERED: *HR* HYDROcodone/Acet 5/325 mg TABLET PO PRN (17:10)
[2021-09-11] MEDS ORDERED: Sennosides 8.6 MG TABLET PO PRN (17:10)
[2021-09-11] MEDS ORDERED: *HR* Dextrose 50 % in Water (Syg) 50 ML SYRINGE IVP PRN (17:10)
[2021-09-11] MEDS ORDERED: *HR* Promethazine 25 MG/ML VIAL IM PRN (17:10)
[2021-09-11] MEDS ORDERED: Insulin LISPRO 300 UNITS/3 ML VIAL SUBQ SCH (18:00)
[2021-09-11] MEDS: Ascorbic Acid 500 MG TABLET PO SCH (18:29)
[2021-09-11] MEDS: Ketorolac 30 MG/ML VIAL IVP SCH (18:30)
[2021-09-11] MEDS: CeFAZolin 2 GM/120 ML BAG IVPB SCH (18:45)
[2021-09-11] MEDS: Gabapentin 400 MG CAPSULE PO SCH (20:59)
[2021-09-11] MEDS: Mirtazapine 15 MG TABLET PO SCH (20:59)
[2021-09-11] MEDS: *HR* OxyCODONE Immed Rel 5 MG TABLET PO PRN (21:00)
[2021-09-11] MEDS ORDERED: Mirtazapine 15 MG TABLET PO SCH (21:00)
[2021-09-12] MEDS: CeFAZolin 2 GM/120 ML BAG IVPB SCH (00:11)
[2021-09-12] MEDS: Ketorolac 30 MG/ML VIAL IVP SCH ×5 (00:12→23:24)
[2021-09-12 05:15] LABS: Basophils % 0.1 %; Hematocrit 32.6 % (35.3-44.9); Hemoglobin 10.6 g/dL (11.5-15.4); Immature Granulocytes % 0.5 % (0-4); Lymphocytes # 1.6 K/mcL (0.6-4.6); Lymphocytes % 14.6 %; Mean Corpuscular HGB Conc 32.5 g/dL (31.6-35.5); Mean Corpuscular Hemoglobin 29.7 pg (28.0-33.3); Mean Corpuscular Volume 91.3 fL (83.0-100.0); Mean Platelet Volume 10.9 fL (9.4-12.4); Monocytes # 0.7 K/mcL (0.0-1.3); Neutrophils # 8.7 K/mcL (1.6-8.9); Platelet Count 143 K/mcL (140-400); Red Blood Count 3.57 M/mcL (3.82-4.97); Red Cell Distribution Width 13.2 % (11.5-14.5); Segmented Neutrophils % 78.8 %; White Blood Count 11.1 K/mcL (4.3-11.1)
[2021-09-12 05:28] LABS: BUN/Creatinine Ratio 25 (6-26); Blood Urea Nitrogen 21 mg/dL (8-23); Calcium 8.7 mg/dL (8.6-10.3); Carbon Dioxide 27 mEq/L (23-29); Chloride 105 mEq/L (98-107); Glucose 135 mg/dL (70-105); Osmolality,Calculated 293 (280-300); Potassium 4.1 mEq/L (3.5-5.1); Sodium 139 mEq/L (136-145); eGFR For African Americans > 60 (> 60); eGFR For Non-African Americans > 60 (> 60)
[2021-09-12] MEDS: Carbidopa/Levodopa 25/100 TABLET PO SCH ×3 (10:17→21:16)
[2021-09-12] MEDS: amLODIPine 5 MG TABLET PO SCH (10:18)
[2021-09-12] MEDS: cefTRIAXone 1,000 MG in 0.9 % Sodium Chloride Mini Bag 100 ML IVPB SCH (10:18)
[2021-09-12] MEDS: Multivit/Ca/Min/Fe/FA 1 TAB TABLET PO SCH (10:18)
[2021-09-12] MEDS: Gabapentin 400 MG CAPSULE PO SCH ×2 (10:32→22:00)
[2021-09-12] MEDS: Ascorbic Acid 500 MG TABLET PO SCH ×2 (10:32→15:07)
[2021-09-12] MEDS: Aspirin Enteric Coated 81 MG Tablet PO SCH ×2 (15:07→21:15)
[2021-09-12] MEDS: Mirtazapine 15 MG TABLET PO SCH (21:16)
[2021-09-12] MEDS: *HR* OxyCODONE Immed Rel 5 MG TABLET PO PRN (21:16)
[2021-09-13 03:27] LABS: Basophils % 0.2 %; Eosinophils # 0.2 K/mcL (0.0-0.6); Eosinophils % 1.5 %; Hematocrit 29.5 % (35.3-44.9); Hemoglobin 9.3 g/dL (11.5-15.4); Immature Granulocytes % 0.4 % (0-4); Lymphocytes # 3.8 K/mcL (0.6-4.6); Lymphocytes % 29.6 %; Mean Corpuscular HGB Conc 31.5 g/dL (31.6-35.5); Mean Corpuscular Hemoglobin 29.5 pg (28.0-33.3); Mean Corpuscular Volume 93.7 fL (83.0-100.0); Mean Platelet Volume 11.4 fL (9.4-12.4); Monocytes # 0.8 K/mcL (0.0-1.3); Monocytes % 5.9 %; Platelet Count 146 K/mcL (140-400); Red Blood Count 3.15 M/mcL (3.82-4.97); Red Cell Distribution Width 13.5 % (11.5-14.5); Segmented Neutrophils % 62.4 %; White Blood Count 12.7 K/mcL (4.3-11.1)
[2021-09-13 03:50] LABS: Calcium 9.3 mg/dL (8.6-10.3); Potassium 3.9 mEq/L (3.5-5.1)
[2021-09-13] MEDS: Ketorolac 30 MG/ML VIAL IVP SCH ×3 (05:54→17:19)
[2021-09-13] MEDS: amLODIPine 5 MG TABLET PO SCH (08:38)
[2021-09-13] MEDS: Aspirin Enteric Coated 81 MG Tablet PO SCH ×2 (08:39→20:38)
[2021-09-13] MEDS: Ascorbic Acid 500 MG TABLET PO SCH ×2 (08:41→17:18)
[2021-09-13] MEDS: Multivit/Ca/Min/Fe/FA 1 TAB TABLET PO SCH (08:41)
[2021-09-13] MEDS: Carbidopa/Levodopa 25/100 TABLET PO SCH ×2 (08:41→17:18)
[2021-09-13] MEDS: Gabapentin 400 MG CAPSULE PO SCH ×2 (08:42→20:38)
[2021-09-13] MEDS: cefTRIAXone 1,000 MG in 0.9 % Sodium Chloride Mini Bag 100 ML IVPB SCH (08:42)
[2021-09-13] MEDS: Nystatin POWDER 30 GM BOTTLE TP SCH ×2 (18:26→20:40)
[2021-09-13] MEDS: Mirtazapine 15 MG TABLET PO SCH (20:38)
[2021-09-14] MEDS: Carbidopa/Levodopa 25/100 TABLET PO SCH ×4 (00:18→21:01)
[2021-09-14] MEDS: Ketorolac 30 MG/ML VIAL IVP SCH ×5 (00:20→23:36)
[2021-09-14 07:17] LABS: Basophils % 0.3 %; Eosinophils # 0.2 K/mcL (0.0-0.6); Eosinophils % 2.3 %; Hematocrit 28.4 % (35.3-44.9); Hemoglobin 8.9 g/dL (11.5-15.4); Immature Granulocytes % 0.6 % (0-4); Lymphocytes # 3.8 K/mcL (0.6-4.6); Lymphocytes % 42.5 %; Mean Corpuscular HGB Conc 31.3 g/dL (31.6-35.5); Mean Corpuscular Hemoglobin 29.7 pg (28.0-33.3); Mean Corpuscular Volume 94.7 fL (83.0-100.0); Mean Platelet Volume 10.8 fL (9.4-12.4); Monocytes # 0.6 K/mcL (0.0-1.3); Neutrophils # 4.3 K/mcL (1.6-8.9); Platelet Count 147 K/mcL (140-400); Red Cell Distribution Width 13.7 % (11.5-14.5); Segmented Neutrophils % 47.3 %
[2021-09-14 07:28] LABS: BUN/Creatinine Ratio 45 (6-26); Blood Urea Nitrogen 35 mg/dL (8-23); Calcium 9.4 mg/dL (8.6-10.3); Carbon Dioxide 31 mEq/L (23-29); Chloride 107 mEq/L (98-107); Glucose 94 mg/dL (70-105); Osmolality,Calculated 300 (280-300); Potassium 4.3 mEq/L (3.5-5.1); Sodium 141 mEq/L (136-145); eGFR For African Americans > 60 (> 60); eGFR For Non-African Americans > 60 (> 60)
[2021-09-14] MEDS: Aspirin Enteric Coated 81 MG Tablet PO SCH ×2 (09:49→21:00)
[2021-09-14] MEDS: Multivit/Ca/Min/Fe/FA 1 TAB TABLET PO SCH (09:49)
[2021-09-14] MEDS: amLODIPine 5 MG TABLET PO SCH (09:50)
[2021-09-14] MEDS: Ascorbic Acid 500 MG TABLET PO SCH ×2 (09:55→17:11)
[2021-09-14] MEDS: Gabapentin 400 MG CAPSULE PO SCH ×2 (09:55→21:00)
[2021-09-14] MEDS: *HR* OxyCODONE Immed Rel 5 MG TABLET PO PRN ×2 (09:56→17:14)
[2021-09-14] MEDS: cefTRIAXone 1,000 MG in 0.9 % Sodium Chloride Mini Bag 100 ML IVPB SCH (10:02)
[2021-09-14] MEDS: Mirtazapine 15 MG TABLET PO SCH (21:01)
[2021-09-14] MEDS: Nystatin POWDER 30 GM BOTTLE TP SCH ×2 (21:02→21:51)
[2021-09-15] MEDS: Ketorolac 30 MG/ML VIAL IVP SCH ×3 (05:37→18:00)
[2021-09-15 06:56] LABS: Basophils % 0.3 %; Eosinophils # 0.2 K/mcL (0.0-0.6); Eosinophils % 1.6 %; Hematocrit 28.7 % (35.3-44.9); Hemoglobin 8.9 g/dL (11.5-15.4); Immature Granulocytes % 0.5 % (0-4); Lymphocytes # 2.6 K/mcL (0.6-4.6); Lymphocytes % 26.2 %; Mean Corpuscular Hemoglobin 29.3 pg (28.0-33.3); Mean Corpuscular Volume 94.4 fL (83.0-100.0); Mean Platelet Volume 10.7 fL (9.4-12.4); Monocytes # 0.5 K/mcL (0.0-1.3); Monocytes % 5.5 %; Neutrophils # 6.5 K/mcL (1.6-8.9); Platelet Count 171 K/mcL (140-400); Red Blood Count 3.04 M/mcL (3.82-4.97); Red Cell Distribution Width 13.3 % (11.5-14.5); Segmented Neutrophils % 65.9 %; White Blood Count 9.9 K/mcL (4.3-11.1)
[2021-09-15 07:13] LABS: BUN/Creatinine Ratio 46 (6-26); Blood Urea Nitrogen 31 mg/dL (8-23); Calcium 9.7 mg/dL (8.6-10.3); Carbon Dioxide 32 mEq/L (23-29); Chloride 106 mEq/L (98-107); Glucose 118 mg/dL (70-105); Osmolality,Calculated 300 (280-300); Potassium 4.5 mEq/L (3.5-5.1); Sodium 141 mEq/L (136-145); eGFR For African Americans > 60 (> 60); eGFR For Non-African Americans > 60 (> 60)
[2021-09-15 07:35] VITALS: O2SAT 100
[2021-09-15] MEDS: cefTRIAXone 1,000 MG in 0.9 % Sodium Chloride Mini Bag 100 ML IVPB SCH (08:02)
[2021-09-15] MEDS: Ascorbic Acid 500 MG TABLET PO SCH ×2 (08:03→15:58)
[2021-09-15] MEDS: Aspirin Enteric Coated 81 MG Tablet PO SCH (08:03)
[2021-09-15] MEDS: Multivit/Ca/Min/Fe/FA 1 TAB TABLET PO SCH (08:04)
[2021-09-15] MEDS: amLODIPine 5 MG TABLET PO SCH (08:04)
[2021-09-15] MEDS: Carbidopa/Levodopa 25/100 TABLET PO SCH ×2 (08:18→14:54)
[2021-09-15] MEDS: Gabapentin 400 MG CAPSULE PO SCH (08:18)
[2021-09-15] MEDS: Nystatin POWDER 30 GM BOTTLE TP SCH ×3 (09:00→15:03)
[2021-09-15 15:18] VITALS: BP 105/52; PULSE 65; TEMP 97.7
[2021-09-15 17:09] LABS: Hematocrit 32.9 % (35.3-44.9); Hemoglobin 10.2 g/dL (11.5-15.4)
== END 2021-09-15 19:43 | DRG 522 ==
LOC: EMEROOARM 08:33 → SUATTDRO 13:14 → 4WAOSI 13:14
PROVIDERS: ADMIT General Practice; ATTEND Internal Medicine